=== PATIENT | female | born 1945 | race Two or more races ===

== ENCOUNTER → 2017-06-24 | Outpatient (CLI) | payer MEDICARE ==
--- NOTE | 2017-06-24 10:42 | RADIOLOGY REPORT (SQ) ---
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 TECHNIQUE: CT scan of the chest performed using helical scanning technique with dynamic intravenous contrast injection. Images reviewed with lung, soft tissue and bone windows. Reconstructed coronal and sagittal MPR images reviewed. All images stored on PACS. All CT scanners at this facility use dose modulation, iterative reconstruction, and/or weight based d osing when appropriate to reduce radiation dose to as low as reasonably achievable (ALARA). [facility]: Dose Right [facility]: CareDose [facility]: Dose Right [facility]: Teradose 4D [facility]: [employer] CONTRAST TYPE AND DOSE: 75 cc Isovue 370- low osmolar. RENAL FUNCTION: Creatinine 0.8 RADIATION DOSE: . LIMITATIONS: None. FINDINGS: LUNGS AND PLEURA: No opacities, nodules, masses. No pneumothorax. No effusions. HILAR AND MEDIASTINAL STRUCTURES: No identified masses or abnormal nodes. HEART AND VASCULAR STRUCTURES: No aneurysm or dissection. No central pulmonary emboli. No pericardi al effusion. HARDWARE: None in the chest. UPPER ABDOMEN: See separate report of the CT of the abdomen. THYROID AND OTHER SOFT TISSUES: No masses. No adenopathy. BONES: No significant finding. OTHER: No other significant finding. IMPRESSION: NORMAL CT OF THE CHEST WITH IV CONTRAST. TECHNICAL DOCUMENTATION: JOB ID: [id number] Quality ID # [id number]: Final reports with documentation of one or more dose reduction techniques (e.g., Au tomated exposure control, adjustment of the mA and/or kV according to patient size, use of iterative reconstruction technique) 2010 [employer]- All Rights Reserved
--- NOTE | 2017-06-24 10:59 | RADIOLOGY REPORT (SQ) ---
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 TECHNIQUE: CT scan of the abdomen and pelvis performed using helical scanning technique with dynamic intravenous contrast injection. Oral contrast. Images reviewed with lung, soft tissue, and bone win dows. Reconstructed coronal and sagittal MPR images reviewed. Delayed images for evaluation of the ur inary system also acquired. All images stored on PACS. All CT scanners at this facility use dose modulation, iterative reconstruction, and/or weight based d osing when appropriate to reduce radiation dose to as low as reasonably achievable (ALARA). [facility]: Dose Right [facility]: CareDose [facility]: Dose Right [facility]: Teradose 4D [facility]: [employer] CONTRAST TYPE AND DOSE: contrast/concentration: Isovue 370.00 mg/ml; Total Contrast Delivered: 75.0 ml; Total Saline Delivered: 67.0 ml RENAL FUNCTION: Creatinine 0.8 RADIATION DOSE: CT Rad equipment meets quality standard of care and radiation dose reduction techniq ues were employed. CTDIvol: 4.9 - 6.2 mGy. DLP: 887 mGy-cm.. LIMITATIONS: None. FINDINGS: LOWER CHEST: See separate report of the CT of the chest. LIVER: Normal size. No masses. No dilated ducts. SPLEEN: Splenomegaly. No masses. PANCREAS: No masses. No significant calcifications. No adjacent inflammation or peripancreatic fluid collections. Pancreatic duct not dilated. GALLBLADDER: No identified stones by CT criteria. No inflammatory changes to suggest cholecystitis. ADRENAL GLANDS: No significant masses or asymmetry. RIGHT KIDNEY AND URETER: Rotated. No solid masses. No significant calcifications. No hydronephro sis or hydroureter. LEFT KIDNEY AND URETER: No solid masses. No significant calcifications. No hydronephrosis or hydr oureter. AORTA AND VESSELS: No aneurysm. No dissection. Renal arteries, SMA, celiac without stenosis. RETROPERITONEUM: No retroperitoneal adenopathy, hemorrhage or masses. BOWEL AND PERITONEAL CAVITY: A colostomy is present the left lower quadrant. No bowel masses. No me senteric masses. There is a 2nd ostomy on the right that may be closed. There are fluid collections in the right side of the pelvis that may represent non-opacified small bowel. These appear to be co nfluent. APPENDIX: Not identified. PELVIS: Fluid collections on the right as described above. ABDOMINAL WALL: Ostomies as described. BONES: 3 long cannulated screws are present in the right femoral neck. There appears to be some shor tening of the femoral neck. OTHER: No other significant finding. IMPRESSION: 1. There are fluid collections in the right side of the pelvis that appear to be conflu ent. These may represent un opacified loops of small bowel. If the patient had cystic ovarian neopl asm, these could represent localized recurrence/metastases. 2. Changes in right femoral neck as described. TECHNICAL DOCUMENTATION: JOB ID: [id number] Quality ID # [id number]: Final reports with documentation of one or more dose reduction techniques (e.g., Au tomated exposure control, adjustment of the mA and/or kV according to patient size, use of iterative reconstruction technique) 2010 [employer]- All Rights Reserved
== END ==
LOC: RAD 08:12
PROVIDERS: ATTEND Internal Medicine
DX: C56.2 Malignant neoplasm of left ovary (principal)
CPT/HCPCS: 71260; 74177; 82565

== ENCOUNTER → 2017-07-07 | Outpatient (CLI) | payer MEDICARE ==
--- NOTE | 2017-07-09 11:23 | RADIOLOGY REPORT (SQ) ---
EXAM DESCRIPTION: PET CT SKULL/THIGH COMPLETED DATE/TIME: 07/07/2017 8:36 pm REASON FOR STUDY: OVARIAN CANCER C56.2 MALIGNANT NEOPLASM OF LEFT OVARY COMPARISON: CT chest abdomen pelvis dated 06/24/2017. RADIONUCLIDE AND DOSE: 10.0 mCi F18 FDG The route of agent administration: Intravenous FASTING BLOOD SUGAR: 183 mg/dl CONTRAST TYPE AND DOSE: No CT contrast given. TECHNIQUE: Blood glucose level was verified. Above dose of FDG was injected intravenously. 2-D seg mented attenuation correction images were obtained from the base of the skull to the midthighs. Nonc ontrast CT images were obtained for attenuation correction and fusion with emission images. CT image s were performed without oral or intravenous contrast and are not sensitive for parenchymal lesions. A series of overlapping emission PET images were obtained. Images reviewed and manipulated at [facility] work station by the radiologist. Images stored on PACS. LIMITATIONS: None. FINDINGS: HEAD AND NECK: No areas of abnormal metabolic activity in the soft tissues of the head and neck. CHEST: No areas of abnormal metabolic activity in the chest. ABDOMEN AND PELVIS: No areas of abnormal metabolic activity in the abdomen or pelvis. Extensive surg ical changes in the lower abdomen and pelvis. There has been previous pelvic exenteration. There is ureteral diversion with implantation in the distal ileal loop in the right lower pelvis extending to a right lower quadrant ostomy. There is a left lower quadrant colostomy. Expected physiologic acti vity is present in the genitourinary system and bowel. PROXIMAL LOWER EXTREMITIES: No areas of abnormal metabolic activity in the soft tissues of the lower extremities. BONES: No abnormal metabolic activity in the visualized skeleton. ADDITIONAL CT FINDINGS: Cortical cysts in the right kidney. Hardware in the right hip. No additiona l significant findings on the noncontrast CT images. OTHER: No other significant findings. IMPRESSION: UNREMARKABLE PET SCAN. THERE ARE NO AREAS OF ABNORMAL METABOLIC ACTIVITY. THERE ARE EX TENSIVE SURGICAL CHANGES RELATED TO PREVIOUS PELVIC EXENTERATION. THE IRREGULAR FLUID COLLECTIONS IN THE RIGHT PELVIS NOTED ON RECENT CT SCAN ARE ACTUALLY RELATED TO PREVIOUS SURGERY WITH URETERAL DIVE RSION INTO A DISTAL ILEAL LOOP EXTENDING TO A RIGHT LOWER QUADRANT OSTOMY. THERE IS A LEFT LOWER DIONICIO DRANT COLOSTOMY. NO OTHER SIGNIFICANT FINDINGS OTHER THAN INCIDENTAL CORTICAL CYSTS IN THE RIGHT KID TIMBO AND HARDWARE IN THE RIGHT HIP. TECHNICAL DOCUMENTATION: JOB ID: [id number] [employer]- All Rights Reserved
== END ==
LOC: RAD 17:37
PROVIDERS: ATTEND Internal Medicine
DX: C56.2 Malignant neoplasm of left ovary (principal)
CPT/HCPCS: 78815; A9552

== ENCOUNTER 2017-08-03 13:20 | Day surgery (SDC) | payer MEDICARE ==
[2017-08-03] MEDS ORDERED: ACETAMINOPHEN 325 MG TABLET ONE (13:41)
[2017-08-03] MEDS ORDERED: DIPHENHYDRAMINE HCL 25 MG CAPSULE ONE (13:42)
[2017-08-03] MEDS ORDERED: METHYLPREDNISOLONE INJ 40 MG/1 ML SDV IV PRN (13:48)
[2017-08-03 22:53] LABS: ABSOLUTE LYMPHOCYTES (AUTO) 1.3 10^3/uL (0.5-4.7); ABSOLUTE MONOCYTES (AUTO) 0.5 10^3/uL (0.1-1.4); ABSOLUTE NEUT (AUTO) 5.9 10^3/uL (1.7-8.2); BASOPHILS % (AUTO) 0.5 % (0-2); EOSINOPHILS % (AUTO) 0.1 % (0-6); HEMATOCRIT 25.6 % (36.0-47.0); HEMOGLOBIN 8.7 g/dL (12.0-15.5); MEAN CORPUSCULAR HEMOGLOBIN 32.4 pg (27.0-33.4); MEAN CORPUSCULAR HGB CONC 34.1 g/dL (32.0-36.0); MEAN CORPUSCULAR VOLUME 95 fl (80-97); MONOCYTES % (AUTO) 6.4 % (3-13); PLATELET COUNT 202 10^3/uL (150-450); RED CELL DISTRIBUTION WIDTH 16.6 % (11.5-14.0); TOTAL CELLS COUNTED % (AUTO) 100 %; WHITE BLOOD COUNT 7.7 10^3/uL (4.0-10.5)
[2017-08-03] MEDS ORDERED: HEPARIN SOD (PORCINE) 100 UNIT/ML 1 ML VIAL IV ONE (23:45)
[2017-08-04 01:02] VITALS: BP 117/59
== END 2017-08-04 01:10 | disposition home or self-care (01) ==
LOC: OROUT 13:20 → UNDODISIN 08-04 01:10 → EDSTATUS 08-05 08:29
PROVIDERS: ATTEND Internal Medicine
DX: D64.9 Anemia, unspecified (principal)
CPT/HCPCS: 36415; 85025; A9270 ×2

== ENCOUNTER → 2017-09-13 | Outpatient (CLI) | payer MEDICARE ==
--- NOTE | 2017-09-13 11:08 | RADIOLOGY REPORT (SQ) ---
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 Images reviewed with lung, soft tissue and bone windows. Reconstructed coronal and sagittal MPR images reviewed. All images stored on PACS. All CT scanners at this facility use dose modulation, iterative reconstruction, and/or weight based d osing when appropriate to reduce radiation dose to as low as reasonably achievable (ALARA). [facility]: Dose Right [facility]: CareDose [facility]: Dose Right [facility]: Teradose 4D [facility]: [employer] CONTRAST TYPE AND DOSE: 75 cc Isovue 370- low osmolar. RENAL FUNCTION: Creatinine 0.9 RADIATION DOSE: Total exam DLP: 1062 mGy cm LIMITATIONS: None. FINDINGS: LUNGS AND PLEURA: No opacities, nodules, masses. No pneumothorax. No effusions. HILAR AND MEDIASTINAL STRUCTURES: No identified masses or abnormal nodes. HEART AND VASCULAR STRUCTURES: No aneurysm or dissection. No central pulmonary emboli. No pericardi al effusion. HARDWARE: None in the chest. UPPER ABDOMEN: See separate report of the CT of the abdomen. THYROID AND OTHER SOFT TISSUES: No masses. No adenopathy. BONES: No significant abnormality. OTHER: No other significant finding. IMPRESSION: NORMAL CT OF THE CHEST WITH IV CONTRAST. TECHNICAL DOCUMENTATION: JOB ID: [id number] Quality ID # 436: Final reports with documentation of one or more dose reduction techniques (e.g., Au tomated exposure control, adjustment of the mA and/or kV according to patient size, use of iterative reconstruction technique) 2010 [employer]- All Rights Reserved Reading location - IP/workstation name: [email or web address]
--- NOTE | 2017-09-13 11:26 | RADIOLOGY REPORT (SQ) ---
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 No oral contrast. Images reviewed with lung, soft tissue, and bone windows. Reconstructed coronal and sagittal MPR images reviewed. Delayed images for evaluation of the urinary system also acquired. All images stored on PACS. All CT scanners at this facility use dose modulation, iterative reconstruction, and/or weight based d osing when appropriate to reduce radiation dose to as low as reasonably achievable (ALARA). [facility]: Dose Right [facility]: CareDose [facility]: Dose Right [facility]: Teradose 4D [facility]: [email or web address] CONTRAST TYPE AND DOSE: contrast/concentration: Isovue 370.00 mg/ml; Total Contrast Delivered: 75.0 ml; Total Saline Delivered: 57.4 ml RENAL FUNCTION: Creatinine 0.9 RADIATION DOSE: CT Rad equipment meets quality standard of care and radiation dose reduction techniq ues were employed. CTDIvol: 6.7 - 9.8 mGy. DLP: 1062 mGy-cm.. LIMITATIONS: None. FINDINGS: LOWER CHEST: See separate report of the CT of the chest. LIVER: Normal size. No masses. No dilated ducts. SPLEEN: Normal size. No focal lesions. PANCREAS: No masses. No significant calcifications. No adjacent inflammation or peripancreatic fluid collections. Pancreatic duct not dilated. GALLBLADDER: No identified stones by CT criteria. No inflammatory changes to suggest cholecystitis. ADRENAL GLANDS: No significant masses or asymmetry. RIGHT KIDNEY AND URETER: No solid masses. No significant calcifications. No hydronephrosis or hyd roureter. LEFT KIDNEY AND URETER: No solid masses. No significant calcifications. No hydronephrosis or hydr oureter. AORTA AND VESSELS: No aneurysm. No dissection. Renal arteries, SMA, celiac without stenosis. RETROPERITONEUM: No retroperitoneal adenopathy, hemorrhage or masses. BOWEL AND PERITONEAL CAVITY: There is a colostomy in the left lower quadrant. APPENDIX: Not identified. PELVIS: Uterus and urinary bladder are absent. No pelvic masses or fluid collections. ABDOMINAL WALL: Left-sided colostomy. There is also an ostomy on the right side likely representing an ileal conduit. BONES: 3 long cannulated screws are present extending through the right femoral neck. This is stable . No osseous metastases are suggested. OTHER: No other significant finding. IMPRESSION: Surgical changes with no evidence of metastatic disease in the abdomen or pelvis. TECHNICAL DOCUMENTATION: JOB ID: [id number] Quality ID # 436: Final reports with documentation of one or more dose reduction techniques (e.g., Au tomated exposure control, adjustment of the mA and/or kV according to patient size, use of iterative reconstruction technique) 2010 [employer]- All Rights Reserved Reading location - IP/workstation name: [email or web address]
== END ==
LOC: RAD 09:24
PROVIDERS: ATTEND Internal Medicine
DX: C56.2 Malignant neoplasm of left ovary (principal)
CPT/HCPCS: 71260; 74177; 82565

== ENCOUNTER 2017-10-07 17:31 | Emergency (ER) | payer MEDICARE ==
[2017-10-07] MEDS ORDERED: NORMAL SALINE 1000 ML 1,000 ML IV ONE (17:53)
--- NOTE | 2017-10-07 17:55 | ER Document Report ---
ED General - General Chief Complaint: High Blood Sugar Stated Complaint: DIZZY,NAUSEA,BLURRED VISION Time Seen by Provider: 10/07/17 17:52 TRAVEL OUTSIDE OF THE [place] IN LAST 30 DAYS: No - HPI Notes: Patient currently on prednisone due to underlying cancer diabetic with elevated blood sugars meter reading high. Blurred vision nausea vomiting - Related Data Allergies/Adverse Reactions: morphine Allergy (Verified 10/07/17 17:32) Past Medical History - Social History Smoking Status: Current Every Day Smoker Chew tobacco use (# tins/day): No Frequency of alcohol use: None Drug Abuse: None Family History: Reviewed & Not Pertinent Patient has suicidal ideation: No Patient has homicidal ideation: No Endocrine Medical History: Reports: Hx Diabetes Mellitus Type 2 Renal/ Medical History: Reports: Hx Kidney Stones. Denies: Hx Peritoneal Dialysis Past Surgical History: Reports: Hx Abdominal Surgery - urostomy and colostomy, Hx Gynecologic Surgery - ovarian, Hx Hysterectomy, Hx Kidney (Renal Surgery), Hx Orthopedic Surgery - right hip replacement, left shoulder Review of Systems - Review of Systems Gastrointestinal: Diarrhea, Nausea, Vomiting -: Yes All other systems reviewed and negative Physical Exam - Vital signs Vitals: Temp Pulse Resp BP Pulse Ox 97.7 F 86 17 114/46 L 95 10/07/17 17:38 10/07/17 17:38 10/07/17 17:38 10/07/17 17:38 10/07/17 17:38 Interpretation: Normal - Notes Notes: Lungs clear to auscultation heart rate regular rate and rhythm. - General General appearance: Appears well In distress: None - HEENT Head: Normocephalic, Atraumatic Eyes: Normal Pupils: PERRL - Cardiovascular Murmur: No - Extremities General upper extremity: Normal inspection, Nontender, Normal ROM General lower extremity: Normal inspection, Nontender, Normal ROM - Neurological Sensory: Normal Course - Vital Signs Vital signs: Temp Pulse Resp BP Pulse Ox 97.7 F 86 17 114/46 L 95 10/07/17 17:38 10/07/17 17:38 10/07/17 17:38 10/07/17 17:38 10/07/17 17:38
[2017-10-07 18:13] LABS: HEMATOCRIT 40.9 % (36.0-47.0); HEMOGLOBIN 13.7 g/dL (12.0-15.5); MEAN CORPUSCULAR HEMOGLOBIN 32.4 pg (27.0-33.4); MEAN CORPUSCULAR HGB CONC 33.5 g/dL (32.0-36.0); MEAN CORPUSCULAR VOLUME 97 fl (80-97); PLATELET COUNT 210 10^3/uL (150-450); RED BLOOD COUNT 4.22 10^6/uL (3.72-5.28); RED CELL DISTRIBUTION WIDTH 14.5 % (11.5-14.0); WHITE BLOOD COUNT 9.5 10^3/uL (4.0-10.5)
[2017-10-07 18:19] LABS: VENOUS BLOOD BASE EXCESS -5.3 mmol/L; VENOUS BLOOD HCO3 20.4 mmol/L (20-32); VENOUS BLOOD PCO2 40.5 mmHg (35-63); VENOUS BLOOD PH 7.32 (7.30-7.42)
[2017-10-07 18:32] LABS: ALANINE AMINOTRANSFERASE 29 U/L (9-52); ALKALINE PHOSPHATASE 68 U/L (38-126); ANION GAP 12 (5-19); ASPARTATE AMINO TRANSFERASE 28 U/L (14-36); BILIRUBIN,DIRECT 0.4 mg/dL (0.0-0.4); BILIRUBIN,TOTAL 0.4 mg/dL (0.2-1.3); BLOOD UREA NITROGEN 28 mg/dL (7-20); CALCIUM 10.1 mg/dL (8.4-10.2); CARBON DIOXIDE 18 mmol/L (22-30); CHLORIDE 97 mmol/L (98-107); LIPASE 116.1 U/L (23-300); SODIUM 127.1 mmol/L (137-145); TOTAL PROTEIN 6.9 g/dL (6.3-8.2)
[2017-10-07 18:33] LABS: ABSOLUTE LYMPHOCYTES# (MANUAL) 0.4 10^3/uL (0.5-4.7); ABSOLUTE MONOCYTES # (MANUAL) 0.4 10^3/uL (0.1-1.4); ABSOLUTE NEUTROPHILS# (MANUAL) 8.7 10^3/uL (1.7-8.2); BASOPHILS % (MANUAL) 0 % (0-2); EOSINOPHILS % (MANUAL) 0 % (0-6); LYMPHOCYTES % (MANUAL) 4 % (13-45); MONOCYTES % (MANUAL) 4 % (3-13); SEGMENTED NEUTROPHILS % (MAN) 92 % (42-78); TOTAL CELLS COUNTED 100
[2017-10-07 18:35] LABS: POTASSIUM 5.9 mmol/L (3.6-5.0)
[2017-10-07 18:37] LABS: ANISOCYTOSIS SLIGHT; PLATELET COMMENT ADEQUATE; TOXIC GRANULATION SLIGHT
[2017-10-07 18:40] LABS: APPEARANCE,URINE CLEAR; BILIRUBIN,URINE NEGATIVE (NEGATIVE); COLOR,URINE STRAW; GLUCOSE, URINE >=500 mg/dL (NEGATIVE); KETONES,URINE NEGATIVE (NEGATIVE); LEUKOCYTE ESTERASE,URINE NEGATIVE (NEGATIVE); NITRITE,URINE NEGATIVE (NEGATIVE); PROTEIN,URINE NEGATIVE (NEGATIVE); URINE SPECIFIC GRAVITY 1.013; UROBILINOGEN,URINE NEGATIVE mg/dL (<2.0)
[2017-10-07 18:42] LABS: GLUCOSE 737 mg/dL (75-110)
[2017-10-07] MEDS ORDERED: INSULIN REG, HUMAN 100 UNIT/ML 3 ML VIAL (PYX) IV ONE (19:03)
[2017-10-07] MEDS ORDERED: RINGERS SOLUTION,LACTATED 1,000 ML IV ONE (19:30)
--- NOTE | 2017-10-07 19:35 | ER Document Report ---
ED General - General Chief Complaint: High Blood Sugar Stated Complaint: DIZZY,NAUSEA,BLURRED VISION Time Seen by Provider: 10/07/17 17:52 Notes: Patient is a 71-year-old female with a past medical history of a hemolytic anemia, currently on prednisone 40 mg daily currently tapering down who presents from her primary care doctor's office with hyperglycemia, lightheadedness, and general fatigue. Patient reports that the symptoms have been ongoing for at least the past month. She was immediately referred to the emergency department by her primary care doctor. She had originally been referred to her primary care doctor by her senior ios developer due to concerns of hyperglycemia in the setting of prednisone. Patient states that normally her blood sugars are very well controlled when she is not on steroids she only requires metformin and dietary control to main blood sugars typically anywhere between 100-150. She has not had to be on insulin in many years. She denies any chest pain, shortness of breath, dysuria, abdominal pain, nausea or vomiting. No confusion. No focal weakness or numbness. She has not noted that anything seems to improve or worsen her symptoms. TRAVEL OUTSIDE OF THE [place] IN LAST 30 DAYS: No - Related Data Allergies/Adverse Reactions: morphine Allergy (Verified 10/07/17 17:32) Past Medical History - General Information source: Patient - Social History Smoking Status: Current Every Day Smoker Chew tobacco use (# tins/day): No Frequency of alcohol use: None Drug Abuse: None Lives with: Family Family History: Reviewed & Not Pertinent Patient has suicidal ideation: No Patient has homicidal ideation: No Endocrine Medical History: Reports: Hx Diabetes Mellitus Type 2 Renal/ Medical History: Reports: Hx Kidney Stones. Denies: Hx Peritoneal Dialysis Past Surgical History: Reports: Hx Abdominal Surgery - urostomy and colostomy, Hx Gynecologic Surgery - ovarian, Hx Hysterectomy, Hx Kidney (Renal Surgery), Hx Orthopedic Surgery - right hip replacement, left shoulder Review of Systems - Review of Systems Notes: Constitutional: Negative for fever. Positive for generalized fatigue HENT: Negative for sore throat. Eyes: Negative for visual changes. Cardiovascular: Negative for chest pain. Respiratory: Negative for shortness of breath. Gastrointestinal: Negative for abdominal pain, vomiting or diarrhea. Genitourinary: Positive for polyuria Musculoskeletal: Negative for back pain. Skin: Negative for rash. Neurological: Negative for headaches, weakness or numbness. 10 point ROS negative except as marked above and in HPI. Physical Exam - Vital signs Vitals: Temp Pulse Resp BP Pulse Ox 97.7 F 86 17 114/46 L 95 10/07/17 17:38 10/07/17 17:38 10/07/17 17:38 10/07/17 17:38 10/07/17 17:38 Interpretation: Normal Notes: PHYSICAL EXAMINATION: GENERAL: Well-appearing, well-nourished and in no acute distress. HEAD: Atraumatic, normocephalic. EYES: Pupils equal round and reactive to light, extraocular movements intact, sclera anicteric, conjunctiva are normal. ENT: nares patent, oropharynx clear without exudates. Dry mucous membranes. NECK: Normal range of motion, supple without lymphadenopathy LUNGS: Breath sounds clear to auscultation bilaterally and equal. No wheezes rales or rhonchi. HEART: Regular rate and rhythm without murmurs ABDOMEN: Soft, nontender, normoactive bowel sounds. No guarding, no rebound. No masses appreciated. EXTREMITIES: Normal range of motion, no pitting or edema. No cyanosis. NEUROLOGICAL: Face symmetric. Tongue protrudes midline. Extraocular motions intact. Pupils are 2 mm and equally reactive. Normal speech, normal gait. 5 out of 5 strength in both the distal and proximal upper and lower extremities bilaterally. Sensation is grossly intact throughout. Finger to nose testing normal. Pronator drift normal. PSYCH: Normal mood, normal affect. SKIN: Warm, Dry, normal turgor, no rashes or lesions noted. Course - Re-evaluation Re-evalutation: 10/07/17 19:32 Presentation of asymptomatic hyperglycemia. There is no evidence of HHS or diabetic ketoacidosis on laboratories or based on clinical history. Patient's vitals are within normal limits. They deny any acute focal complaints. Treatment with insulin and IV fluids given here in the emergency department with appropriate response of the blood sugar. Patient does have primary care follow-up. Patient was instructed to continue taking their metformin and advised they will likely need to increase dietary modification and may also need medication changes. The main concern is likely that the patient is having hypoglycemia in the setting of prednisone which is being tapered off secondary to hemolytic anemia. I have instructed the patient to follow-up with her senior ios developer as well as her primary care physician about the possibility of starting insulin until she comes off of this medication versus allowing the taper to continue naturally and allow for normal yazidi of her blood sugars. Indications to return to emergency department as well as the importance of close outpatient follow-up were discussed at length. Patient verbalized understanding of the need for close follow-up and indications to return to the ED. - Vital Signs Vital signs: Temp Pulse Resp BP Pulse Ox 97.7 F 86 12 109/47 L 93 10/07/17 17:38 10/07/17 17:38 10/07/17 19:01 10/07/17 19:00 10/07/17 19:01 - Laboratory Result Diagrams: 10/07/17 17:53 10/07/17 17:53 Laboratory results interpreted by me: 10/07/17 10/07/17 10/07/17 17:53 17:53 18:12 RDW 14.5 H Seg Neuts % (Manual) 92 H Lymphocytes % (Manual) 4 L Abs Neuts (Manual) 8.7 H Abs Lymphs (Manual) 0.4 L Sodium 127.1 L Potassium 5.9 H Chloride 97 L Carbon Dioxide 18 L BUN 28 H Glucose 737 H* Urine Glucose (UA) >=500 H Urine Blood SMALL H Discharge - Discharge Clinical Impression: Hyperglycemia, Steroid-induced hyperglycemia, Dehydration Condition: Good Disposition: HOME, SELF-CARE Additional Instructions: You need to followup urgently with your primary care doctor as your blood sugars were high today. You did not have any evidence of a dangerous condition associated with these blood sugars at this time. Your high blood sugars are likely due to taking prednisone and you need to discuss with your primary care doctor and senior ios developer about the plan for the next 3 weeks will you continue to be on this medication. They may elect to put you on insulin until your office medication or alternatively could allow your blood sugars naturally decrease as you come off the steroids. Please return to emergency department immediately if you develop weakness, persistent vomiting, confusion, or any other symptoms that are concerning to you.
[2017-10-07 20:47] VITALS: BP 120/54
== END 2017-10-07 20:54 | disposition home or self-care (01) ==
LOC: ER 17:31
DX: E11.65 Type 2 diabetes mellitus with hyperglycemia (principal); T38.0X5A Adverse effect of glucocorticoids and synthetic analogues, initial encounter; Z79.84 Long term (current) use of oral hypoglycemic drugs; D58.9 Hereditary hemolytic anemia, unspecified; E86.0 Dehydration; R35.8 Other polyuria; R42 Dizziness and giddiness; R53.83 Other fatigue; F17.200 Nicotine dependence, unspecified, uncomplicated; Z88.5 Allergy status to narcotic agent
CPT/HCPCS: 99283; 96360; 96361; 36415; 87086; 82962; 83690; 85025; 87088; 80053; 81001; 87186; 82803; A9270; J7030; J7120; J1815

== ENCOUNTER → 2017-12-20 | Outpatient (CLI) | payer MEDICARE ==
--- NOTE | 2017-12-20 11:31 | RADIOLOGY REPORT (SQ) ---
EXAM DESCRIPTION: CT ABD/PELVIS WITH IV ONLY; CT CHEST WITH COMPLETED DATE/TIME: 12/20/2017 10:07 am REASON FOR STUDY: MALIGNANT NEOPLASM OF LEFT OVARY C56.2 MALIGNANT NEOPLASM OF LEFT OVARY COMPARISON: PET-CT 07/07/2017 CT abdomen pelvis 06/24/2017 CT chest abdomen pelvis 09/13/2017 CONTRAST TYPE AND DOSE: contrast/concentration: Isovue 370.00 mg/ml; Total Contrast Delivered: 78.0 ml; Total Saline Delivered: 67.0 ml RENAL FUNCTION: Creatinine 0.7 TECHNIQUE: CT scan of the chest performed using helical scanning technique with dynamic intravenous contrast injection. Images reviewed with lung, soft tissue and bone windows. Reconstructed coronal a nd sagittal MPR images reviewed. All images stored on PACS. CT scan of the abdomen and pelvis performed with intravenous and without oral contrastusing helical s jenniffer technique with dynamic intravenous contrast injection. Images reviewed with lung, soft tissu e and bone windows. Reconstructed coronal and sagittal MPR images reviewed. Delayed images for eval uation of the urinary system also acquired and evaluated. All images stored on PACS. All CT scanners at this facility use dose modulation, iterative reconstruction, and/or weight based d osing when appropriate to reduce radiation dose to as low as reasonably achievable (ALARA). [facility]: Dose Right [facility]: CareDose [facility]: Dose Right [facility]: Teradose 4D [facility]: [employer] RADIATION DOSE: CT Rad equipment meets quality standard of care and radiation dose reduction techniq ues were employed. CTDIvol: 4.8 - 5.4 mGy. DLP: 792 mGy-cm. . LIMITATIONS: None. FINDINGS: CHEST: LUNGS AND PLEURA: No opacities, nodules, masses. No pneumothorax. No effusions. HILAR AND MEDIASTINAL STRUCTURES: No identified masses or abnormal nodes. HEART AND VASCULAR STRUCTURES: No aneurysm or dissection. No central pulmonary emboli. No pericardi al effusion. HARDWARE: Right-sided permanent central line tip superior vena cava THYROID AND OTHER SOFT TISSUES: No masses. No adenopathy. BONES: No significant finding. OTHER: No other significant finding. ABDOMEN AND PELVIS: LIVER: Normal size. No masses. No dilated ducts. SPLEEN: Normal size. No focal lesions. PANCREAS: No masses. No significant calcifications. No adjacent inflammation or peripancreatic fluid collections. Pancreatic duct not dilated. GALLBLADDER: No identified stones by CT criteria. No inflammatory changes to suggest cholecystitis. ADRENAL GLANDS: No significant masses or asymmetry. RIGHT KIDNEY AND URETER: Stable right upper pole cortical thinning, multiple stable right renal cysts . There is very mild prominence of the right renal pelvis and ureter, stable. No right-sided urinar y calculi LEFT KIDNEY AND URETER: Stable left upper pole cortical thinning. 1 cm left upper pole renal cortica l cyst. No stones. No hydronephrosis. AORTA AND VESSELS: No aneurysm. No dissection. Diffuse atherosclerotic aortoiliac calcification. RETROPERITONEUM: No retroperitoneal adenopathy, hemorrhage or masses. BOWEL AND PERITONEAL CAVITY: No oral contrast. No CT evidence of bowel obstruction. No free air or free fluid. APPENDIX: Not identified ABDOMINAL WALL: No masses. No hernias. Right lower quadrant urinary conduit. Left lower quadrant co lostomy PELVIS: Post cystectomy, hysterectomy and oophorectomy, and distal sigmoid colon/ rectum resection. No pelvic free fluid. No pelvic adenopathy. Surgical anastomotic yajaira along the right lower quad rant urinary conduit. BONES: Old healed subcapital right femoral neck fracture with lag screws OTHER: No other significant finding. IMPRESSION: No CT evidence of metastatic disease to the chest abdomen or pelvis given history of ova leroy cancer TECHNICAL DOCUMENTATION: JOB ID: [id number] Quality ID # [id number]: Final reports with documentation of one or more dose reduction techniques (e.g., Au tomated exposure control, adjustment of the mA and/or kV according to patient size, use of iterative reconstruction technique) 2010 [employer]- All Rights Reserved Reading location - IP/workstation name: [email or web address]
== END ==
LOC: RAD 09:22
PROVIDERS: ATTEND Physician Assistant Medical
DX: C56.2 Malignant neoplasm of left ovary (principal)
CPT/HCPCS: 71260; 74177

== ENCOUNTER 2018-01-21 18:34 | Inpatient (IN) | payer MEDICARE ==
[2018-01-21] MEDS ORDERED: ACETAMINOPHEN 325 MG TABLET PO ONE (19:02)
[2018-01-21] MEDS ORDERED: NORMAL SALINE 1000 ML 1,000 ML IV ONE (19:02)
--- NOTE | 2018-01-21 19:05 | ER Document Report ---
ED Medical Screen (RME) - General Chief Complaint: Fever Stated Complaint: FEVER, BACK PAIN, DIZZY Time Seen by Provider: 01/21/18 18:55 Notes: RAPID MEDICAL EVALUATION DISCLOSURE I have seen this patient as part of a Rapid Medical Evaluation and, if applicable, placed any initially appropriate orders. The patient will be seen and fully evaluated, including a full history and physical exam, by a provider ( in Main ED or Fast Track) when a room becomes available. 72-year-old female PMH multiple cancers status post urostomy colostomy here with complaints of fevers chills headaches body aches right-sided back pain nausea vomiting ongoing since earlier today. She has taken Tylenol for the symptoms. She does not know what could be causing the symptoms. She has a urostomy and colostomy due to a cancer resection performed in [place] that required removal of part of her colon and her entire bladder and "the top of the vagina". Patient states that the urine in the urostomy appears to be baseline color and clarity. EXAM Tachycardic Mild right CVA TTP Colostomy/urostomy in place TRAVEL OUTSIDE OF THE [place] IN LAST 30 DAYS: No - Related Data Allergies/Adverse Reactions: morphine Allergy (Verified 10/07/17 17:32) Past Medical History Endocrine Medical History: Reports: Hx Diabetes Mellitus Type 2 Renal/ Medical History: Reports: Hx Kidney Stones. Denies: Hx Peritoneal Dialysis Past Surgical History: Reports: Hx Abdominal Surgery - urostomy and colostomy, Hx Gynecologic Surgery - ovarian, Hx Hysterectomy, Hx Kidney (Renal Surgery), Hx Orthopedic Surgery - right hip replacement, left shoulder - Immunizations History of Influenza Vaccine for 04/2017 - 09/2017 Season: Yes Influenza Administration Date for 04/2017 - 09/2017 Season: 04/07/17 Physical Exam - Vital signs Vitals: Temp Pulse BP Pulse Ox 102.7 F H 117 H 167/58 H 95 01/21/18 18:41 01/21/18 18:41 01/21/18 18:41 01/21/18 18:41 Course - Vital Signs Vital signs: Temp Pulse Resp BP Pulse Ox 102.7 F H 117 H 167/58 H 95 01/21/18 18:41 01/21/18 18:41 01/21/18 18:41 01/21/18 18:41 Doctor's Discharge - Discharge Referrals: CLYDE HOLLEY PA-C [Primary Care Provider] - Follow up as needed
[2018-01-21 19:53] LABS: HEMATOCRIT 36.9 % (36.0-47.0); HEMOGLOBIN 12.4 g/dL (12.0-15.5); MEAN CORPUSCULAR HEMOGLOBIN 27.9 pg (27.0-33.4); MEAN CORPUSCULAR HGB CONC 33.7 g/dL (32.0-36.0); MEAN CORPUSCULAR VOLUME 83 fl (80-97); PLATELET COUNT 201 10^3/uL (150-450); RED BLOOD COUNT 4.45 10^6/uL (3.72-5.28); RED CELL DISTRIBUTION WIDTH 15.7 % (11.5-14.0); WHITE BLOOD COUNT 13.3 10^3/uL (4.0-10.5)
[2018-01-21 20:07] LABS: ALANINE AMINOTRANSFERASE 48 U/L (9-52); ALBUMIN 4.3 g/dL (3.5-5.0); ALKALINE PHOSPHATASE 49 U/L (38-126); ANION GAP 16 (5-19); ASPARTATE AMINO TRANSFERASE 49 U/L (14-36); BILIRUBIN,DIRECT 0.5 mg/dL (0.0-0.4); BILIRUBIN,TOTAL 0.8 mg/dL (0.2-1.3); BLOOD UREA NITROGEN 16 mg/dL (7-20); CALCIUM 10.2 mg/dL (8.4-10.2); CARBON DIOXIDE 20 mmol/L (22-30); CHLORIDE 103 mmol/L (98-107); GLUCOSE 111 mg/dL (75-110); LIPASE 83.4 U/L (23-300); POTASSIUM 4.5 mmol/L (3.6-5.0); SODIUM 138.6 mmol/L (137-145); TOTAL PROTEIN 7.7 g/dL (6.3-8.2)
[2018-01-21 20:12] LABS: ABSOLUTE LYMPHOCYTES# (MANUAL) 0.3 10^3/uL (0.5-4.7); ABSOLUTE MONOCYTES # (MANUAL) 0.5 10^3/uL (0.1-1.4); ABSOLUTE NEUTROPHILS# (MANUAL) 12.4 10^3/uL (1.7-8.2); ANISOCYTOSIS SLIGHT; BAND NEUTROPHILS % (MANUAL) 2 % (3-5); BASOPHILS % (MANUAL) 0 % (0-2); EOSINOPHILS % (MANUAL) 1 % (0-6); LYMPHOCYTES % (MANUAL) 2 % (13-45); MONOCYTES % (MANUAL) 4 % (3-13); PLATELET COMMENT ADEQUATE; SEGMENTED NEUTROPHILS % (MAN) 91 % (42-78); TOTAL CELLS COUNTED 100
[2018-01-21 20:13] LABS: OVALOCYTES SLIGHT; POIKILOCYTOSIS SLIGHT; POLYCHROMASIA SLIGHT
[2018-01-21] MEDS ORDERED: CEFTRIAXONE INJ 1000 MG VIAL IV ONE (21:57)
--- NOTE | 2018-01-21 22:01 | ER Document Report ---
ED Fever - General Chief Complaint: Fever Stated Complaint: FEVER, BACK PAIN, DIZZY Time Seen by Provider: 01/21/18 18:55 Notes: Patient is a 72-year-old female who comes emergency department for chief complaint of shaking chills, fever, weakness, generalized body aches, and pain in her back mainly in the mid right. She also states she vomited earlier. She reports a little bit of a cough as well. She denies any abdominal pain. Past medical history includes cancer resulting in bladder removal and partial colectomy, she has a colostomy bag and a urostomy bag after her bladder was removed. She is on oral chemotherapy for the rest of her life. Follows with Dr. Da Silva. TRAVEL OUTSIDE OF THE [place] IN LAST 30 DAYS: No - Related Data Allergies/Adverse Reactions: morphine Allergy (Verified 10/07/17 17:32) Past Medical History - General Information source: Patient - Social History Smoking Status: Never Smoker Frequency of alcohol use: None Drug Abuse: None Lives with: Family Family History: Reviewed & Not Pertinent Patient has suicidal ideation: No Patient has homicidal ideation: No Endocrine Medical History: Reports: Hx Diabetes Mellitus Type 2 Renal/ Medical History: Reports: Hx Kidney Stones. Denies: Hx Peritoneal Dialysis Past Surgical History: Reports: Hx Abdominal Surgery - urostomy and colostomy, Hx Gynecologic Surgery - ovarian, Hx Hysterectomy, Hx Kidney (Renal Surgery), Hx Orthopedic Surgery - right hip replacement, left shoulder - Immunizations Immunizations up to date: Yes Hx Diphtheria, Pertussis, Tetanus Vaccination: Yes Review of Systems - Review of Systems Constitutional: See HPI EENT: No symptoms reported Cardiovascular: No symptoms reported Respiratory: See HPI Gastrointestinal: See HPI Genitourinary: See HPI Female Genitourinary: No symptoms reported Musculoskeletal: No symptoms reported Skin: No symptoms reported Hematologic/Lymphatic: No symptoms reported Neurological/Psychological: No symptoms reported Physical Exam - Vital signs Vitals: Temp Pulse BP Pulse Ox 102.7 F H 117 H 167/58 H 95 01/21/18 18:41 01/21/18 18:41 01/21/18 18:41 01/21/18 18:41 - Notes Notes: GENERAL: Alert, interacts well. No acute distress. HEAD: Normocephalic, atraumatic. EYES: Pupils equal, round, and reactive to light. Extraocular movements intact. ENT: Oral mucosa moist, tongue midline. NECK: Full range of motion. Supple. Trachea midline. LUNGS: Clear to auscultation bilaterally, no wheezes, rales, or rhonchi. No respiratory distress. HEART: Regular rate and rhythm. No murmur ABDOMEN: Soft, non-tender. Non-distended. Urostomy and colostomy bags noted over the lower abdomen. Unremarkable appearing stool and urine. EXTREMITIES: Moves all 4 extremities spontaneously. No edema, normal radial and dorsalis pedis pulses bilaterally. No cyanosis. BACK: Right-sided CVA tenderness, left unremarkable, back examination otherwise unremarkable. NEUROLOGICAL: Alert and oriented x3. Normal speech. [cranial nerves II through XII grossly intact]. SKIN: Warm, dry, normal turgor. No rashes or lesions noted. Course - Re-evaluation Re-evalutation: Patient had bladder removed, had makeshift bladder created out of intestine, has urostomy bag, will be contaminated. Ordering chest x-ray as well. Patient has been here for 3 hours, has right CVA tenderness, fever, vomiting, history of kidney stones. Performing CAT scan to rule out infected ureterolithiasis but also starting Rocephin prophylaxis. To obtain a urinalysis we removed the bag and placed a new one, then obtained sample. Culture placed. CBC shows leukocytosis with a couple of bands, elevation of neutrophils. Lactic acid is not elevated. Chemistry generally unremarkable. Urinalysis consistent with infection. Chest x-ray unremarkable. CAT scan of the abdomen and pelvis shows nephrolithiasis, no ureterolithiasis or acute findings. Discussed with patient and family. Concern because of her initial tachycardia, fever, leukocytosis, chemotherapy use, and CVA tenderness suggesting pyelonephritis with possible sepsis. No evidence of septic shock. Will discuss with hospitalist for admission. 01/22/18 00:26 Discussed with hospitalist, patient will be admitted. - Vital Signs Vital signs: Temp Pulse Resp BP Pulse Ox 102.7 F H 117 H 27 H 110/42 L 98 01/21/18 18:41 01/21/18 18:41 01/22/18 02:00 01/21/18 22:01 01/22/18 02:00 - Laboratory Result Diagrams: 01/21/18 19:20 01/21/18 19:20 Laboratory results interpreted by me: 01/21/18 01/21/18 01/21/18 19:20 19:20 23:15 WBC 13.3 H RDW 15.7 H Seg Neuts % (Manual) 91 H Band Neutrophils % 2 L Lymphocytes % (Manual) 2 L Abs Neuts (Manual) 12.4 H Abs Lymphs (Manual) 0.3 L Carbon Dioxide 20 L Est GFR (Non-Af Amer) 53 L Glucose 111 H Direct Bilirubin 0.5 H AST 49 H Urine Protein 100 H Urine Blood SMALL H Ur Leukocyte Esterase MODERATE H Discharge - Discharge Clinical Impression: Tachycardia, Flank pain Vomiting Qualifiers: Vomiting type: unspecified Vomiting Intractability: non-intractable Nausea presence: with nausea Qualified Code(s): R11.2 - Nausea with vomiting, unspecified Urinary tract infection Qualifiers: Urinary tract infection type: site unspecified Hematuria presence: without hematuria Qualified Code(s): N39.0 - Urinary tract infection, site not specified Fever Qualifiers: Fever type: unspecified Qualified Code(s): R50.9 - Fever, unspecified Condition: Stable Disposition: ADMITTED INPATIENT Admitting Provider: Hospitalist Unit Admitted: Telemetry
--- NOTE | 2018-01-21 22:39 | RADIOLOGY REPORT (SQ) ---
EXAM DESCRIPTION: CHEST SINGLE VIEW COMPLETED DATE/TIME: 01/21/2018 10:25 pm REASON FOR STUDY: fever, tachycardia COMPARISON: CT from December. NUMBER OF VIEWS: One view. TECHNIQUE: Single frontal radiographic view of the chest acquired. LIMITATIONS: None. FINDINGS: LUNGS AND PLEURA: Slightly hyperinflated but generally clear without suspicious opacity or acute infiltrate. MEDIASTINUM AND HILAR STRUCTURES: No masses. Contour normal. HEART AND VASCULAR STRUCTURES: Heart normal in size. Normal vasculature. BONES: No acute findings. HARDWARE: Right port with tip to the superior vena cava. OTHER: No other significant finding. IMPRESSION: NO SIGNIFICANT RADIOGRAPHIC FINDING IN THE CHEST. TECHNICAL DOCUMENTATION: JOB ID: [id number] [employer] [facility]- All Rights Reserved Reading location - IP/workstation name: [email or web address]
[2018-01-21 23:43] LABS: APPEARANCE,URINE CLOUDY; BILIRUBIN,URINE NEGATIVE (NEGATIVE); COLOR,URINE YELLOW; GLUCOSE, URINE NEGATIVE (NEGATIVE); KETONES,URINE NEGATIVE (NEGATIVE); LEUKOCYTE ESTERASE,URINE MODERATE (NEGATIVE); NITRITE,URINE NEGATIVE (NEGATIVE); PROTEIN,URINE 100 mg/dL (NEGATIVE); URINE SPECIFIC GRAVITY 1.011; UROBILINOGEN,URINE NEGATIVE mg/dL (<2.0)
--- NOTE | 2018-01-21 23:50 | RADIOLOGY REPORT (SQ) ---
CT abdomen and pelvis without contrast on 01/21/2018 at 11:00 PM CLINICAL INDICATION: Right-sided back pain, fever, history of kidney stones TECHNIQUE: Multiple axial images are obtained throughout the abdomen and pelvis without the administration of contrast. This exam was performed according to our departmental dose-optimization program, which includes automated exposure control, adjustment of the mA and/or kV according to patient size and/or use of iterative reconstruction technique. Total DLP is 321.78 mGy*cm. COMPARISON: 12/20/2017 FINDINGS: Abdomen: There is minimal basilar atelectasis and/or scarring. Vascular calcifications are noted. There is a small nonobstructing stone in the lower pole of the left kidney. There are no ureteral stones or hydronephrosis. The unenhanced solid abdominal organs are otherwise unremarkable. There is no abdominal adenopathy. The patient is status post cystectomy with a right lower quadrant ileal conduit. The patient is status post a rectosigmoid colon resection with a left lower quadrant descending colostomy. There is a small parastomal hernia containing a small portion of colon adjacent to this. The abdominal portion of the GI tract is otherwise unremarkable. There are some adherent loops of bowel along the anterior abdominal wall without evidence of obstruction. Pelvis: The patient is status post hysterectomy. There is no free fluid in the pelvis. There is no pelvic adenopathy. The pelvic portion of the GI tract is unremarkable. Three pins are noted in the right hip. No acute bony abnormality is noted. IMPRESSION: 1. Small nonobstructing left renal stone. 2. Extensive postsurgical changes in the abdomen and pelvis as above with otherwise no acute abnormality.
[2018-01-22] MEDS ORDERED: METOCLOPRAMIDE HCL INJ/PF 10 MG/2 ML SDV ONE (03:26)
[2018-01-22] MEDS ORDERED: METOCLOPRAMIDE HCL INJ/PF 10 MG/2 ML SDV IV ONE (03:27)
[2018-01-22] MEDS ORDERED: GLUCAGON,HUMAN RECOMB 1 MG INJ IM PRN (04:14)
[2018-01-22] MEDS ORDERED: DEXTROSE 50%-WATER 25 GM/50 ML DISP.SYRIN IV PRN ×2 (04:14)
[2018-01-22] MEDS ORDERED: DEXTROSE 40% GEL 15 GM TUBE PO PRN ×2 (04:14)
--- NOTE | 2018-01-22 04:40 | PDOC H&P ---
History of Present Illness Admission Date/PCP: 01/22/18 00:50 REYNALDO GATES PA-C Patient complains of: Fever History of Present Illness: SHELLIE HORTON is a 72 year old female who comes to the emergency department complaining of fever. States has been sick for the last 2 days with generalized weakness, lately as associated with shaking chills and fever up to 104.3 at home, generalized body achiness. Right flank pain that radiated to her right lower abdomen. Persistent nausea and nonbloody vomiting. She describes the flank pain up to 8/10 in intensity. Associated symptoms lightheadedness, cough, yellowish sputum. Denies chest pain. The patient has a urostomy and colostomy in place Denies frequent urinary tract infections In the emergency department T102.7 feet 117 BP 167/58. White blood cells 13.3 with left shift and bands. In the emergency department sick looking with persistent nausea and vomiting. She has a positive urinalysis for infection, in the ED her first urine was discarded and sent her urine from a clear urostomy bag. Chest x-ray unremarkable. CT scan of the abdomen and pelvis shows nephrolithiasis, no ureterolithiasis or acute findings. Patient meets criteria for sepsis. 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 Also has a colostomy with colon resection. Chemotherapy in the past Hematology: Reports: Anemia Past Surgical History Past Surgical History: Reports: Colostomy, Hysterectomy, Orthopedic Surgery - right hip replacement, left shoulder, Other - Bladder removal with urostomy Social History Lives with: Family Smoking Status: Current Every Day Smoker - Smoke 1 pack per day. No alcohol or illicit drugs Frequency of Alcohol Use: None Hx Recreational Drug Use: No Family History Family History: Reviewed & Not Pertinent Family History: Unable to obtain at this time as per her persistent nausea and vomiting, no family member at the bedside. Parental Family History Reviewed: No Children Family History Reviewed: NA Sibling(s) Family History Reviewed.: NA Medication/Allergy Allergies/Adverse Reactions: morphine Allergy (Verified 10/07/17 17:32) Review of Systems Review of Systems: As outlined in the HPI, others negative Physical Exam Vital Signs: Temp Pulse Resp BP Pulse Ox 99.6 F 117 H 23 H 110/42 L 99 01/22/18 02:45 01/21/18 18:41 01/22/18 03:00 01/21/18 22:01 01/22/18 03:00 Additional comments: General appearance: Very ill looking, and appears to be in acute distress secondary to her shaking chills and persistent nausea and vomiting Head: Normocephalic Eyes: PEERL, EOMI, vision is grossly intact. Ears: External auditory canal and tympanic membranes clear, hearing grossly intact. Nose: No nasal discharge. Throat: Oral cavity and pharynx normal. No inflammation, swelling, exudate or lesions. Very dry oral mucosa Neck: Neck supple, nontender without lymphadenopathy, masses or thyromegaly. Cardiac: Normal S1 and S2. No S3, S4 or murmurs. Rhythm is regular and tachycardic. There is no peripheral edema, looks pale. Extremities are warm and well perfused. Capillary refill is less than 2 seconds. No carotid bruits. Lungs: Clear to auscultation and percussion without rales, rhonchi, wheezing or diminished breath sounds. Not using accessory muscles. Abdomen: Positive bowel sounds. Soft. Nondistended. Tenderness to palpation in the right abdomen. No guarding or rebound. No masses. No hepatosplenomegaly. Has a urostomy with clear urine and colostomy with nonbloody liquid stools. Extremities: No significant deformity or joint abnormality. No edema. Peripheral pulses intact. No varicosities. Neurological: Cranial nerves II through XII grossly intact. Strength and sensation symmetric and intact throughout. Reflexes 2+ throughout. Skin: Skin pale, normal texture and turgor with no lesions or eruptions, warm and dry. Psychiatric: The mental examination revealed the patient was oriented to person , place, and time. The patient was able to demonstrate good judgment on recent , without hallucinations, abnormal affect or abnormal behaviors. Results Laboratory Results: 01/21/18 01/21/18 01/21/18 19:20 19:20 23:15 WBC 13.3 H Hgb 12.4 Hct 36.9 RDW 15.7 H Plt Count 201 Seg Neuts % (Manual) 91 H Band Neutrophils % 2 L Lymphocytes % (Manual) 2 L Abs Neuts (Manual) 12.4 H Abs Lymphs (Manual) 0.3 L Platelet Comment ADEQUATE Polychromasia SLIGHT Poikilocytosis SLIGHT Anisocytosis SLIGHT Ovalocytes SLIGHT Sodium 138.6 Potassium 4.5 Chloride 103 Carbon Dioxide 20 L Anion Gap 16 Creatinine 1.03 Est GFR (Non-Af Amer) 53 L Glucose 111 H Total Bilirubin 0.8 Direct Bilirubin 0.5 H AST 49 H ALT 48 Alkaline Phosphatase 49 Total Protein 7.7 Albumin 4.3 Lipase 83.4 Urine Color YELLOW Urine Appearance CLOUDY Urine pH 6.0 Ur Specific [place] 1.011 Urine Protein 100 H Urine Ketones NEGATIVE Urine Blood SMALL H Urine Nitrite NEGATIVE Urine Bilirubin NEGATIVE Urine Urobilinogen NEGATIVE Ur Leukocyte Esterase MODERATE H Urine WBC (Auto) 78 Urine RBC (Auto) 4 Urine Bacteria (Auto) 2+ Urine WBC Clumps FEW Squamous Epi Cells Auto 1 U Non-Squamous Epis Auto 2 Urine Mucus (Auto) FEW Urine Ascorbic Acid NEGATIVE Impressions: Chest X-Ray 01/21/18 21:48 IMPRESSION: NO SIGNIFICANT RADIOGRAPHIC FINDING IN THE CHEST. Limited or Localized CT 01/21/18 21:57 IMPRESSION: 1. Small nonobstructing left renal stone. 2. Extensive postsurgical changes in the abdomen and pelvis as above with otherwise no acute abnormality. Assessment & Plan - Diagnosis (1) Sepsis Is this a current diagnosis for this admission?: Yes Plan: Patient is a criteria with fever, leukocytosis, tachycardia, a focus of infection. Core measures placed. (2) Urinary tract infection Qualifiers: Urinary tract infection type: site unspecified Hematuria presence: without hematuria Qualified Code(s): N39.0 - Urinary tract infection, site not specified Is this a current diagnosis for this admission?: Yes Plan: Diagnosis is most towards pyelonephritis as per her right flank pain radiated to the right lower abdomen, positive urinalysis, sepsis. In the ED given IV Rocephin and I will continue with this medication. Please follow blood cultures and urine cultures. She does not want any opiates for pain. IV fluids. We will repeat laboratories in the morning. CT abdomen and pelvis negative for acute (3) Diabetes mellitus type 2 in nonobese Is this a current diagnosis for this admission?: Yes Plan: Accu-Cheks every 6 hours. Insulin lispro sliding scale and hypoglycemia protocol. Metformin on hold. (4) Hypertension Is this a current diagnosis for this admission?: Yes Plan: Blood pressure has been slightly elevated in the emergency department, we will closely monitor with telemetry, will resume her antihypertensive medications if her blood pressure keeps is stable, high risk for hypotension. - Inpatient Certification Based on my medical assessment, after consideration of the patient's comorbidities, presenting symptoms, or acuity I expect that the services needed warrant INPATIENT care.: Yes I certify that my determination is in accordance with my understanding of Medicare's requirements for reasonable and necessary INPATIENT services [42 CFR 412.3e].: Yes Medical Necessity: Significant Comorbidiites Make Outpatient Treatment Too Risky , Need For Continuous Telemetry Monitoring, Need for IV Antibiotics, Risk of Complication if Not Cared For in Hospital, Risk of Diagnosis Which Will Require Inpatient Eval/Care/Monitoring
[2018-01-22 04:53] LABS: HEMATOCRIT 36.5 % (36.0-47.0); HEMOGLOBIN 12.4 g/dL (12.0-15.5); MEAN CORPUSCULAR HEMOGLOBIN 28.4 pg (27.0-33.4); MEAN CORPUSCULAR HGB CONC 34.1 g/dL (32.0-36.0); MEAN CORPUSCULAR VOLUME 83 fl (80-97); PLATELET COUNT 164 10^3/uL (150-450); RED BLOOD COUNT 4.38 10^6/uL (3.72-5.28); RED CELL DISTRIBUTION WIDTH 15.9 % (11.5-14.0); WHITE BLOOD COUNT 10.4 10^3/uL (4.0-10.5)
[2018-01-22] MEDS ORDERED: ACETAMINOPHEN 325 MG TABLET ONE (04:59)
[2018-01-22] MEDS ORDERED: ONDANSETRON HCL INJ/PF 4 MG/2 ML SDV IV PRN (05:00)
[2018-01-22 05:16] LABS: ALANINE AMINOTRANSFERASE 38 U/L (9-52); ALBUMIN 3.9 g/dL (3.5-5.0); ALKALINE PHOSPHATASE 63 U/L (38-126); ANION GAP 19 (5-19); ASPARTATE AMINO TRANSFERASE 37 U/L (14-36); BILIRUBIN,DIRECT 0.7 mg/dL (0.0-0.4); BILIRUBIN,TOTAL 0.9 mg/dL (0.2-1.3); BLOOD UREA NITROGEN 17 mg/dL (7-20); CALCIUM 9.8 mg/dL (8.4-10.2); CARBON DIOXIDE 16 mmol/L (22-30); CHLORIDE 106 mmol/L (98-107); GLUCOSE 119 mg/dL (75-110); POTASSIUM 4.1 mmol/L (3.6-5.0); SODIUM 140.8 mmol/L (137-145)
[2018-01-22 05:19] LABS: ABSOLUTE LYMPHOCYTES# (MANUAL) 0.6 10^3/uL (0.5-4.7); ABSOLUTE MONOCYTES # (MANUAL) 0.6 10^3/uL (0.1-1.4); BAND NEUTROPHILS % (MANUAL) 4 % (3-5); BASOPHILS % (MANUAL) 0 % (0-2); EOSINOPHILS % (MANUAL) 1 % (0-6); LYMPHOCYTES % (MANUAL) 6 % (13-45); MONOCYTES % (MANUAL) 6 % (3-13); SEGMENTED NEUTROPHILS % (MAN) 83 % (42-78); TOTAL CELLS COUNTED 100
[2018-01-22 05:21] LABS: ANISOCYTOSIS SLIGHT; PLATELET COMMENT ADEQUATE; POIKILOCYTOSIS SLIGHT; SCHISTOCYTES SLIGHT
[2018-01-22] MEDS ORDERED: (PENDING PHARMACY ID) (Levothyroxine Sodium [Synthroid] 175 MCG) PO SCH (11:00)
[2018-01-22] MEDS: LISINOPRIL 10 MG TABLET PO SCH (13:15)
[2018-01-22] MEDS: ANASTROZOLE 1 MG TABLET PO SCH (13:16)
[2018-01-22] MEDS: INSULIN REG, HUMAN 100 UNIT/ML 3 ML VIAL (PYX) SUBCUT PRN (14:22)
[2018-01-22] MEDS: PIPERACILLIN SODIUM/TAZOBACTAM 3.375 GM in NORMAL SALINE 100 ML IV SCH ×2 (14:22→21:21)
[2018-01-22] MEDS: ACETAMINOPHEN 325 MG TABLET PO PRN ×2 (14:23→21:20)
--- NOTE | 2018-01-22 15:24 | Progress Note ---
Provider Note Provider Note: This patient was admitted by my colleague, Dr. Caruso earlier today. I have reviewed the patient's History and Physical, laboratory results, and vitals. I have examined the patient. She states that she feels better. She has had no further fevers. She advises me that the has a history of autoimmune hemolytic anemia for which she is followed by Dr. Da Silva. I will consult him. The patient has had 1/2 blood cultures come back positive for gram negative rods. I have changed her antibiotic to zosyn for better coverage. I await speciation and sensitivities. The patient appears comfortable and her physical exam was unremarkable.
[2018-01-22] MEDS: NORMAL SALINE 1000 ML 1,000 ML IV PRN (16:42)
[2018-01-22] MEDS ORDERED: LOPERAMIDE HCL 2 MG CAPSULE PO PRN ×2 (17:25→17:53)
[2018-01-22] MEDS ORDERED: LOPERAMIDE HCL 2 MG CAPSULE PO ONE (18:15)
[2018-01-22] MEDS ORDERED: CEFTRIAXONE 1 GM/D5W RTU 1 GM/50 ML RTUPB IV SCH (22:00)
[2018-01-22] MEDS ORDERED: CEFTRIAXONE SODIUM 1,000 MG in DEXTROSE 5%-WATER 50 ML IV SCH (22:00)
[2018-01-23] MEDS: PIPERACILLIN SODIUM/TAZOBACTAM 3.375 GM in NORMAL SALINE 100 ML IV SCH ×4 (03:55→22:10)
[2018-01-23] MEDS: BACLOFEN 10 MG TABLET PO PRN ×2 (04:27→11:43)
[2018-01-23] MEDS ORDERED: DIAZEPAM 5 MG TABLET PO ONE (05:45)
[2018-01-23] MEDS: LANSOPRAZOLE 15 MG TAB.RAP.DR PO SCH (06:05)
[2018-01-23] MEDS: NORMAL SALINE 1000 ML 1,000 ML IV PRN (06:05)
[2018-01-23] MEDS: LEVOTHYROXINE SODIUM 0.1 MG TABLET PO SCH (06:05)
[2018-01-23] MEDS: LEVOTHYROXINE SODIUM 0.075 MG TABLET PO SCH (06:05)
--- NOTE | 2018-01-23 08:50 | PDOC CONSULTATION ---
Consultation Consult Date: 01/23/18 Consult reason:: Hematology/Oncology Consultation was requested for patient with history of Serous Carcinoma and autoimmune hemolytic anemia. History of Present Illness Admission Date/PCP: 01/22/18 00:50 REYNALDO GATES PA-C History of Present Illness: SHELLIE SALDANA is a 72 year old female who presented to the ED with a 3-4 day history of flank pain and fever. She has also had diarrhea during this time period. Her fever at home was up to 103. In the ED, she was found to have UTI , Urosepsis, and kidney stone. This morning, she states that the pain has now moved to her abdomen. She remains on IV antibiotics. 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 She underwent chemotherapy and surgery at that time which included pelvic exenteration, resection of the vagina, rectosigmoid colon, bladder, pelvic tumor, ileal conduit, end colostomy, and urostomy on 10/02/2016 in [place]. At her last visit with Dr. Da Silva in office on 12/24/2017, there was no evidence of disease recurrence, and patient had been doing well. Plan was to repeat staging CT scans again in 3 months time. Past Medical History Cardiac Medical History: Reports: Hyperlipidema, Hypertension Endocrine Medical History: Reports: Diabetes Mellitus Type 2 Renal/ Medical History: Reports: Nephrolithiasis Malignancy Medical History: Reports: Ovarian Cancer Psychiatric Medical History: Denies: Depression Hematology: Reports: Anemia - Autimmune hemolytic treated with steroids and Rituxan with complete respons Past Surgical History Past Surgical History: Reports: Colostomy, Hysterectomy, Orthopedic Surgery - right hip replacement, left shoulder, Other - Bladder removal with urostomy Social History Lives with: Family Smoking Status: Current Every Day Smoker - Smoke 1 pack per day. No alcohol or illicit drugs Cigarettes Packs Per Day: 1 Frequency of Alcohol Use: None Hx Recreational Drug Use: No Hx Prescription Drug Abuse: No Family History Family History: Reviewed & Not Pertinent Parental Family History Reviewed: Yes - Mother of aneurism. Father of cancer. Children Family History Reviewed: No Sibling(s) Family History Reviewed.: Yes Medication/Allergy Home Medications: Anastrozole [Arimidex 1 mg Tablet] 1 mg PO DAILY 01/22/18 Baclofen [Baclofen 10 mg Tablet] 10 mg PO TID PRN 01/22/18 Fenofibrate 160 mg PO DAILY 01/22/18 Glipizide [Glipizide ER] 5 mg PO DAILY 01/22/18 Levothyroxine Sodium [Synthroid] 175 mcg PO DAILY 01/22/18 Lisinopril [Prinivil 10 mg Tablet] 10 mg PO DAILY 01/22/18 Metformin HCl [Glucophage] 1,000 mg PO BID 01/22/18 Omeprazole 20 mg PO DAILY 01/22/18 Allergies/Adverse Reactions: morphine Allergy (Verified 10/07/17 17:32) Review of Systems Constitutional: PRESENT: chills, fatigue, fever(s). ABSENT: headache(s) Eyes: ABSENT: visual disturbances Ears: ABSENT: hearing changes Cardiovascular: ABSENT: chest pain Respiratory: ABSENT: dyspnea Gastrointestinal: PRESENT: diarrhea, nausea, vomiting Musculoskeletal: PRESENT: back pain Integumentary: ABSENT: rash Neurological: ABSENT: memory loss Psychiatric: ABSENT: anxiety, depression Physical Exam Vital Signs: Temp Pulse Resp BP Pulse Ox 99.8 F 92 17 111/35 L 98 01/23/18 04:28 01/23/18 04:28 01/23/18 04:28 01/23/18 04:28 01/23/18 04:28 Intake & Output 01/22/18 01/23/18 01/24/18 06:59 06:59 06:59 Intake Total 5 4748 Output Total 0 2225 Balance 5 2523 Weight 72.4 kg 72.6 kg General appearance: PRESENT: no acute distress, well-developed, well-nourished Exam: 72 year old female sitting in bed. Head exam: PRESENT: normocephalic Eye exam: PRESENT: EOMI Mouth exam: PRESENT: tongue midline Neck exam: ABSENT: lymphadenopathy, tenderness Respiratory exam: PRESENT: clear to auscultation yoli, unlabored Cardiovascular exam: PRESENT: RRR Pulses: PRESENT: normal dorsalis pedis pul GI/Abdominal exam: PRESENT: tenderness, other - Urostomy and colostomy in place. Extremities exam: ABSENT: pedal edema Musculoskeletal exam: PRESENT: normal inspection Neurological exam: PRESENT: alert, awake Psychiatric exam: PRESENT: appropriate affect Focused psych exam: ABSENT: restlessness Skin exam: PRESENT: normal color Results Laboratory Results: 01/22/18 04:33 01/22/18 04:33 Impressions: Chest X-Ray 01/21/18 21:48 IMPRESSION: NO SIGNIFICANT RADIOGRAPHIC FINDING IN THE CHEST. Limited or Localized CT 01/21/18 21:57 IMPRESSION: 1. Small nonobstructing left renal stone. 2. Extensive postsurgical changes in the abdomen and pelvis as above with otherwise no acute abnormality. Assessment & Plan - Diagnosis (1) Urinary tract infection Qualifiers: Urinary tract infection type: site unspecified Hematuria presence: without hematuria Qualified Code(s): N39.0 - Urinary tract infection, site not specified Is this a current diagnosis for this admission?: Yes Plan: With evidence of urosepsis. Currently on IV antibiotics. Temperature has improved. Her pain has now moved to abdomen, hopefully this means that the stone is migrating as well. (2) Ovarian cancer in remission Is this a current diagnosis for this admission?: Yes Plan: Recent CT scans were negative for disease recurrence. I discussed with the patient that it is still possible for her to form kidney stones and to pass kidney stones, despite her extensive surgical history. Will continue to follow her as out patient. No current treatment indicated. - Plan Summary Plan Summary: No evidence of anemia currently, but should follow CBC. I will be available if needed. Please call if further questions or concerns.
[2018-01-23] MEDS ORDERED: (PENDING PHARMACY ID) (Fenofibrate [Fenofibrate] 160 MG) PO SCH (10:00)
[2018-01-23] MEDS: FENOFIBRATE NANOCRYSTALLIZED 145 MG TABLET PO SCH (10:37)
[2018-01-23] MEDS: LISINOPRIL 10 MG TABLET PO SCH (11:43)
[2018-01-23] MEDS: ANASTROZOLE 1 MG TABLET PO SCH (11:43)
[2018-01-23] MEDS: INSULIN REG, HUMAN 100 UNIT/ML 3 ML VIAL (PYX) SUBCUT PRN ×2 (11:49→23:56)
--- NOTE | 2018-01-23 14:56 | PDOC PROGRESS REPORT ---
Subjective Progress Note for:: 01/23/18 Subjective:: The patient is having a headache this morning. She also complains of ongoing diarrhea. Reason For Visit: PYELONEPHRITIS DM II HTN SEPSIS Physical Exam Vital Signs: Temp Pulse Resp BP Pulse Ox 99.7 F 84 13 114/48 L 98 01/23/18 07:36 01/23/18 07:36 01/23/18 07:36 01/23/18 07:36 01/23/18 07:36 Intake & Output 01/22/18 01/23/18 01/24/18 06:59 06:59 06:59 Intake Total 5 4748 Output Total 0 2225 Balance 5 2523 Weight 72.4 kg 72.6 kg General appearance: PRESENT: other - The patient has a cold pack on her forehead due to headache. Head exam: PRESENT: atraumatic, normocephalic Eye exam: ABSENT: scleral icterus Neck exam: ABSENT: carotid bruit, JVD, lymphadenopathy, thyromegaly Respiratory exam: PRESENT: other - No increased work of breathing.. ABSENT: rales, rhonchi, wheezes Cardiovascular exam: PRESENT: RRR. ABSENT: diastolic murmur, rubs, systolic murmur Pulses: PRESENT: other - Diminished distal pulses. GI/Abdominal exam: PRESENT: hyperactive bowel sounds, soft. ABSENT: distended, guarding, mass, organolmegaly, rebound, tenderness Rectal exam: PRESENT: deferred Extremities exam: PRESENT: full ROM. ABSENT: calf tenderness, clubbing, pedal edema Neurological exam: PRESENT: alert, awake, oriented to person, oriented to place , oriented to time, oriented to situation, CN II-XII grossly intact. ABSENT: motor sensory deficit Psychiatric exam: PRESENT: appropriate affect, normal mood Skin exam: PRESENT: dry, intact, warm. ABSENT: cyanosis, rash Results Laboratory Results: 01/22/18 04:33 01/22/18 04:33 Impressions: Chest X-Ray 01/21/18 21:48 IMPRESSION: NO SIGNIFICANT RADIOGRAPHIC FINDING IN THE CHEST. Limited or Localized CT 01/21/18 21:57 IMPRESSION: 1. Small nonobstructing left renal stone. 2. Extensive postsurgical changes in the abdomen and pelvis as above with otherwise no acute abnormality. Assessment & Plan - Diagnosis (1) Pyelonephritis Is this a current diagnosis for this admission?: Yes Plan: Receiving IV zosyn. Urine cultures are positive for gram negative rods. Awaiting ID and sensitivities. (2) Gram-negative bacteremia Is this a current diagnosis for this admission?: Yes Plan: Blood cultures 2/2 positive for gram negative rods. Awaiting ID and sensitivities. (3) Diarrhea Qualifiers: Diarrhea type: unspecified type Qualified Code(s): R19.7 - Diarrhea, unspecified Is this a current diagnosis for this admission?: Yes Plan: Stool studies. (4) Diabetes mellitus type 2 in nonobese Is this a current diagnosis for this admission?: Yes Plan: FSBS and SSI. Hypoglycemic protocol and diabetic diet. (5) Fever Qualifiers: Fever type: due to other condition Qualified Code(s): R50.81 - Fever presenting with conditions classified elsewhere Is this a current diagnosis for this admission?: Yes Plan: Antipyretics. (6) Flank pain Is this a current diagnosis for this admission?: Yes Plan: Pain control. Subsiding. (7) Hypertension Qualifiers: Hypertension type: essential hypertension Qualified Code(s): I10 - Essential (primary) hypertension Is this a current diagnosis for this admission?: Yes Plan: Well controlled on current regimen. (8) Sepsis Is this a current diagnosis for this admission?: Yes Plan: Resolved. (9) Tachycardia Is this a current diagnosis for this admission?: Yes Plan: Resolved. (10) Vomiting Qualifiers: Vomiting type: unspecified Vomiting Intractability: non-intractable Nausea presence: with nausea Qualified Code(s): R11.2 - Nausea with vomiting, unspecified Is this a current diagnosis for this admission?: Yes Plan: Resolved. - Time Time Spent with patient: 35 or more minutes Medications reviewed and adjusted accordingly: Yes
[2018-01-23] MEDS ORDERED: TRAMADOL HCL 50 MG TABLET PO PRN (16:59)
[2018-01-24] MEDS: PIPERACILLIN SODIUM/TAZOBACTAM 3.375 GM in NORMAL SALINE 100 ML IV SCH ×2 (02:36→09:06)
[2018-01-24 04:52] LABS: ABSOLUTE EOSINOPHILS # (AUTO) 0.1 10^3/uL (0.0-0.6); ABSOLUTE LYMPHOCYTES (AUTO) 0.6 10^3/uL (0.5-4.7); ABSOLUTE MONOCYTES (AUTO) 0.6 10^3/uL (0.1-1.4); ABSOLUTE NEUT (AUTO) 4.4 10^3/uL (1.7-8.2); BASOPHILS % (AUTO) 0.3 % (0-2); EOSINOPHILS % (AUTO) 2.6 % (0-6); HEMATOCRIT 30.6 % (36.0-47.0); HEMOGLOBIN 10.4 g/dL (12.0-15.5); LYMPHOCYTES % (AUTO) 9.8 % (13-45); MEAN CORPUSCULAR HEMOGLOBIN 28.2 pg (27.0-33.4); MEAN CORPUSCULAR HGB CONC 33.9 g/dL (32.0-36.0); MEAN CORPUSCULAR VOLUME 83 fl (80-97); MONOCYTES % (AUTO) 9.8 % (3-13); PLATELET COUNT 128 10^3/uL (150-450); RED BLOOD COUNT 3.68 10^6/uL (3.72-5.28); RED CELL DISTRIBUTION WIDTH 15.8 % (11.5-14.0); SEGMENTED NEUTROPHILS % (AUTO) 77.5 % (42-78); TOTAL CELLS COUNTED % (AUTO) 100 %; WHITE BLOOD COUNT 5.7 10^3/uL (4.0-10.5)
[2018-01-24 05:12] LABS: ANION GAP 11 (5-19); BLOOD UREA NITROGEN 16 mg/dL (7-20); CARBON DIOXIDE 18 mmol/L (22-30); CHLORIDE 109 mmol/L (98-107); GLUCOSE 126 mg/dL (75-110); POTASSIUM 4.6 mmol/L (3.6-5.0); SODIUM 138.4 mmol/L (137-145)
[2018-01-24] MEDS: LEVOTHYROXINE SODIUM 0.1 MG TABLET PO SCH (05:51)
[2018-01-24] MEDS: LEVOTHYROXINE SODIUM 0.075 MG TABLET PO SCH (05:51)
[2018-01-24] MEDS: LANSOPRAZOLE 15 MG TAB.RAP.DR PO SCH (05:51)
[2018-01-24 07:52] VITALS: BP 118/54
--- NOTE | 2018-01-24 08:06 | PDOC PROGRESS REPORT ---
Subjective Progress Note for:: 01/24/18 Subjective:: Patient still has some pain in RLQ abdomen, but she is eating well and walked in [place] yesterday. ROS: Constipation, sleepiness. No dyspnea. Reason For Visit: PYELONEPHRITIS DM II HTN SEPSIS Physical Exam Vital Signs: Temp Pulse Resp BP Pulse Ox 98.8 F 72 18 118/54 L 97 01/24/18 07:51 01/24/18 07:51 01/24/18 07:51 01/24/18 07:51 01/24/18 07:51 Intake & Output 01/23/18 01/24/18 01/25/18 06:59 06:59 06:59 Intake Total 4748 3443 Output Total 7831 4170 Balance 2523 -2157 Weight 72.6 kg 75.7 kg General appearance: PRESENT: no acute distress Head exam: PRESENT: normocephalic Respiratory exam: PRESENT: unlabored Neurological exam: PRESENT: alert, awake, oriented to person, oriented to place , oriented to time, oriented to situation Psychiatric exam: PRESENT: appropriate affect Skin exam: PRESENT: normal color Results Laboratory Results: 01/24/18 04:30 01/24/18 04:30 01/24/18 01/24/18 04:30 04:30 WBC 5.7 RBC 3.68 L Hgb 10.4 L Hct 30.6 L MCV 83 MCH 28.2 MCHC 33.9 RDW 15.8 H Plt Count 128 L Seg Neutrophils % 77.5 Lymphocytes % 9.8 L Monocytes % 9.8 Eosinophils % 2.6 Basophils % 0.3 Absolute Neutrophils 4.4 Absolute Lymphocytes 0.6 Absolute Monocytes 0.6 Absolute Eosinophils 0.1 Absolute Basophils 0.0 Sodium 138.4 Potassium 4.6 Chloride 109 H Carbon Dioxide 18 L Anion Gap 11 BUN 16 Creatinine 1.03 Est GFR ( Amer) > 60 Est GFR (Non-Af Amer) 53 L Glucose 126 H Calcium 9.0 Impressions: Chest X-Ray 01/21/18 21:48 IMPRESSION: NO SIGNIFICANT RADIOGRAPHIC FINDING IN THE CHEST. Limited or Localized CT 01/21/18 21:57 IMPRESSION: 1. Small nonobstructing left renal stone. 2. Extensive postsurgical changes in the abdomen and pelvis as above with otherwise no acute abnormality. Assessment & Plan - Diagnosis (1) Urinary tract infection Qualifiers: Urinary tract infection type: site unspecified Hematuria presence: without hematuria Qualified Code(s): N39.0 - Urinary tract infection, site not specified Is this a current diagnosis for this admission?: Yes Plan: Await final culture results, but her fever has responded well to current antibiotics. (2) Ovarian cancer in remission Is this a current diagnosis for this admission?: Yes Plan: Will follow as outpatient. - Plan Summary Plan Summary: I will sign off. Happy to follow as outpatient and please call if further concerns.
[2018-01-24] MEDS: FENOFIBRATE NANOCRYSTALLIZED 145 MG TABLET PO SCH (09:07)
[2018-01-24] MEDS: NORMAL SALINE 1000 ML 1,000 ML IV PRN (10:30)
[2018-01-24] MEDS: LISINOPRIL 10 MG TABLET PO SCH (12:54)
[2018-01-24] MEDS: ANASTROZOLE 1 MG TABLET PO SCH (12:54)
--- NOTE | 2018-01-24 13:44 | PDOC DISCHARGE SUMMARY ---
General - Admit/Disc Date/PCP Admission Date/Primary Care Provider: 01/22/18 00:50 REYNALDO GATES PA-C Discharge Date: 01/24/18 - Discharge Diagnosis (1) Pyelonephritis Is this a current diagnosis for this admission?: Yes (2) Gram-negative bacteremia Is this a current diagnosis for this admission?: Yes (3) Diarrhea Is this a current diagnosis for this admission?: Yes (4) Diabetes mellitus type 2 in nonobese Is this a current diagnosis for this admission?: Yes (5) Fever Is this a current diagnosis for this admission?: Yes (6) Flank pain Is this a current diagnosis for this admission?: Yes (7) Hypertension Is this a current diagnosis for this admission?: Yes (8) Sepsis Is this a current diagnosis for this admission?: Yes (9) Tachycardia Is this a current diagnosis for this admission?: Yes (10) Vomiting Is this a current diagnosis for this admission?: Yes - Additional Information Discharge Diet: Diabetic Discharge Activity: Activity As Tolerated, No Driving Prescriptions: Amoxicillin/Potassium Clav [Augmentin 500-125 Tablet] 1 each PO TID 4 Days #12 tablet Levofloxacin [Levaquin 750 mg Tablet] 750 mg PO DAILY #12 tab Tramadol HCl [Ultram 50 mg Tablet] 50 mg PO Q8HP PRN #20 tablet PRN Reason: Home Medications: Anastrozole [Arimidex 1 mg Tablet] 1 mg PO DAILY 01/22/18 Baclofen [Baclofen 10 mg Tablet] 10 mg PO TID PRN 01/22/18 Fenofibrate 160 mg PO DAILY 01/22/18 Glipizide [Glipizide ER] 5 mg PO DAILY 01/22/18 Levothyroxine Sodium [Synthroid] 175 mcg PO DAILY 01/22/18 Lisinopril [Prinivil 10 mg Tablet] 10 mg PO DAILY 01/22/18 Metformin HCl [Glucophage] 1,000 mg PO BID 01/22/18 Omeprazole 20 mg PO DAILY 01/22/18 Cholecalciferol (Vitamin D3) [Vitamin D3 1000 Unit Tablet] 1,000 unit PO DAILY 01/23/18 Diazepam [Valium 5 mg Tablet] 5 mg PO Q12 PRN 01/23/18 Fluticasone Propionate [Flonase Nasal [place] 50 Mcg/[place] 16 gm] 1 spray DAILY Omeprazole Magnesium [Prilosec Otc] 20 mg PO DAILY 01/23/18 Sitagliptin Phosphate [Januvia] 100 mg PO DAILY 01/23/18 Amoxicillin/Potassium Clav [Augmentin 500-125 Tablet] 1 each PO TID 4 Days #12 tablet 01/24/18 Levofloxacin [Levaquin 750 mg Tablet] 750 mg PO DAILY #12 tab 01/24/18 Tramadol HCl [Ultram 50 mg Tablet] 50 mg PO Q8HP PRN #20 tablet 01/24/18 History of Present Illness History of Present Illness: SHELLIE HORTON is a 72 year old female who comes to the emergency department complaining of fever. States has been sick for the last 2 days with generalized weakness, lately as associated with shaking chills and fever up to 104.3 at home, generalized body achiness. Right flank pain that radiated to her right lower abdomen. Persistent nausea and nonbloody vomiting. She describes the flank pain up to 8/10 in intensity. Associated symptoms lightheadedness, cough, yellowish sputum. Denies chest pain. The patient has a urostomy and colostomy in place Denies frequent urinary tract infections In the emergency department T102.7 feet 117 BP 167/58. White blood cells 13.3 with left shift and bands. In the emergency department sick looking with persistent nausea and vomiting. She has a positive urinalysis for infection, in the ED her first urine was discarded and sent her urine from a clear urostomy bag. Chest x-ray unremarkable. CT scan of the abdomen and pelvis shows nephrolithiasis, no ureterolithiasis or acute findings. Patient meets criteria for sepsis. Hospital Course Hospital Course: The patient was admitted and was placed on IV antibiotics. Her glucoses were followed with FSBS and SSI. She received IV fluid support. She was continued on her home medications as possible. Blood and urine cultures were obtained. Urine cultures grew out Klebsiella Oxytoca and E. Coli. Blood cultures grew out E. Coli. Both were sensitive to Levaquin. Augmentin was included in home meds to provide double coverage for the Klebsiella. She is doing well and will be discharged to home with antibiotics and will complete 14 days of IV-equivalent antibiotics and a course of antibiotcs to treat her Klebsiella. Physical Exam Vital Signs: Temp Pulse Resp BP Pulse Ox 98.8 F 72 18 118/54 L 97 01/24/18 13:06 01/24/18 13:06 01/24/18 13:06 01/24/18 13:06 01/24/18 13:06 Intake & Output 01/23/18 01/24/18 01/25/18 06:59 06:59 06:59 Intake Total 4748 3443 Output Total 2229 5600 Balance 2523 -2157 Weight 72.6 kg 75.7 kg General appearance: PRESENT: no acute distress, cooperative Respiratory exam: PRESENT: other - No increased work of breathing.. ABSENT: rales, rhonchi, wheezes Cardiovascular exam: PRESENT: RRR, other - No lateral PMI. No thrills.. ABSENT : gallop, rubs, systolic murmur GI/Abdominal exam: PRESENT: normal bowel sounds, soft, other. ABSENT: hernia, mass, organolmegaly, tenderness Neurological exam: PRESENT: alert, awake, oriented to person, oriented to place , oriented to time, oriented to situation, CN II-XII grossly intact. ABSENT: motor sensory deficit Skin exam: PRESENT: dry, intact, warm Results Laboratory Results: 01/24/18 04:30 01/24/18 04:30 01/24/18 01/24/18 04:30 04:30 WBC 5.7 RBC 3.68 L Hgb 10.4 L Hct 30.6 L MCV 83 MCH 28.2 MCHC 33.9 RDW 15.8 H Plt Count 128 L Seg Neutrophils % 77.5 Lymphocytes % 9.8 L Monocytes % 9.8 Eosinophils % 2.6 Basophils % 0.3 Absolute Neutrophils 4.4 Absolute Lymphocytes 0.6 Absolute Monocytes 0.6 Absolute Eosinophils 0.1 Absolute Basophils 0.0 Sodium 138.4 Potassium 4.6 Chloride 109 H Carbon Dioxide 18 L Anion Gap 11 BUN 16 Creatinine 1.03 Est GFR ( Amer) > 60 Est GFR (Non-Af Amer) 53 L Glucose 126 H Calcium 9.0 01/21/18 23:15 Urine Culture - Final Catheterized Urine Escherichia Coli Klebsiella Oxytoca 01/21/18 22:00 Blood Culture - Final Blood Escherichia Coli 01/21/18 19:20 Blood Culture - Final Blood Escherichia Coli Impressions: Chest X-Ray 01/21/18 21:48 IMPRESSION: NO SIGNIFICANT RADIOGRAPHIC FINDING IN THE CHEST. Limited or Localized CT 01/21/18 21:57 IMPRESSION: 1. Small nonobstructing left renal stone. 2. Extensive postsurgical changes in the abdomen and pelvis as above with otherwise no acute abnormality. Qualifiers - * PATIENT BEING DISCHARGED WITH ANY OF THE FOLLOWING DIAGNOSIS: No
== END 2018-01-24 13:35 | disposition home health service (06) | DRG 872 ==
LOC: ER 18:34 → EH 01-22 00:50 → 3W 01-22 04:15
PROVIDERS: ADMIT Internal Medicine; ATTEND Internal Medicine
DX: A41.9 Sepsis, unspecified organism (principal); N39.0 Urinary tract infection, site not specified; D59.1 Other autoimmune hemolytic anemias; C56.9 Malignant neoplasm of unspecified ovary; B96.20 Unspecified Escherichia coli [E. coli] as the cause of diseases classified elsewhere; B96.1 Klebsiella pneumoniae [K. pneumoniae] as the cause of diseases classified elsewhere; E11.8 Type 2 diabetes mellitus with unspecified complications; I10 Essential (primary) hypertension; R19.7 Diarrhea, unspecified; F17.210 Nicotine dependence, cigarettes, uncomplicated; Z90.6 Acquired absence of other parts of urinary tract; Z90.49 Acquired absence of other specified parts of digestive tract; Z93.3 Colostomy status; Z79.899 Other long term (current) drug therapy
CPT/HCPCS: 36415; 71045; 76380; 80048; 80053; 81001; 82962; 83605; 83690; 85025; 87040; 87077; 87086; 87088; 87186; 96361; 96374; 99285; J0696; J1815; J2543; J2765; J3490; J7030

== ENCOUNTER → 2018-03-05 | Outpatient (CLI) | payer MEDICARE ==
--- NOTE | 2018-03-05 16:25 | RADIOLOGY REPORT (SQ) ---
EXAM DESCRIPTION: SHOULDER RIGHT 2 OR MORE VIEWS COMPLETED DATE/TIME: 03/05/2018 4:11 pm REASON FOR STUDY: RT SHOULDER PAIN COMPARISON: None. NUMBER OF VIEWS: Three views. TECHNIQUE: Internal rotation, external rotation, and Y view images acquired of the right shoulder. LIMITATIONS: None. FINDINGS: MINERALIZATION: Normal. BONES: No acute fracture or dislocation. No worrisome bone lesions. JOINTS: No dislocation. VISUALIZED LUNGS AND RIBS: No pneumothorax. No rib fracture. SOFT TISSUES: No radiopaque foreign body. OTHER: [id number] is in place. IMPRESSION: NEGATIVE STUDY OF THE RIGHT SHOULDER. NO RADIOGRAPHIC EVIDENCE OF ACUTE INJURY. TECHNICAL DOCUMENTATION: JOB ID: [id number] [employer]- All Rights Reserved Reading location - IP/workstation name: [email or web address]
--- NOTE | 2018-03-05 16:25 | RADIOLOGY REPORT (SQ) ---
EXAM DESCRIPTION: CHEST PA/LATERAL COMPLETED DATE/TIME: 03/05/2018 4:11 pm REASON FOR STUDY: PERSISTANT COUGH COMPARISON: 01/21/2018 EXAM PARAMETERS: NUMBER OF VIEWS: two views TECHNIQUE: Digital Frontal and Lateral radiographic views of the chest acquired. RADIATION DOSE: NA LIMITATIONS: none FINDINGS: LUNGS AND PLEURA: No opacities, masses or pneumothorax. No pleural effusion. MEDIASTINUM AND HILAR STRUCTURES: No masses or contour abnormalities. HEART AND VASCULAR STRUCTURES: Heart normal size. No evidence for failure. BONES: No acute findings. HARDWARE: Cemehj-U-Uist remains in place. OTHER: No other significant finding. IMPRESSION: NO SIGNIFICANT RADIOGRAPHIC FINDING IN THE CHEST. TECHNICAL DOCUMENTATION: JOB ID: [id number] [employer]- All Rights Reserved Reading location - IP/workstation name: [email or web address]
== END ==
LOC: OD 15:34
PROVIDERS: ATTEND Physician Assistant
DX: M25.511 Pain in right shoulder (principal); R05 Cough
CPT/HCPCS: 71046

== ENCOUNTER → 2018-03-26 | Outpatient (CLI) | payer MEDICARE ==
--- NOTE | 2018-03-26 09:08 | RADIOLOGY REPORT (SQ) ---
EXAM DESCRIPTION: CT ABD/PELVIS WITH IV ONLY COMPLETED DATE/TIME: 03/26/2018 8:51 am REASON FOR STUDY: OVARIAN CA C56.2 MALIGNANT NEOPLASM OF LEFT OVARY COMPARISON: 12/20/2017. 09/13/2017 TECHNIQUE: CT scan of the abdomen and pelvis performed using helical scanning technique with dynamic intravenous contrast injection. No oral contrast. Images reviewed with lung, soft tissue, and bone windows. Reconstructed coronal and sagittal MPR images reviewed. Delayed images for evaluation of the urinary system also acquired. All images stored on PACS. All CT scanners at this facility use dose modulation, iterative reconstruction, and/or weight based d osing when appropriate to reduce radiation dose to as low as reasonably achievable (ALARA). [facility]: Dose Right [facility]: CareDose [facility]: Dose Right [facility]: Teradose 4D [facility]: Smart [employer] CONTRAST TYPE AND DOSE: Reported on CT chest same date. RENAL FUNCTION: See above. RADIATION DOSE: . LIMITATIONS: None. FINDINGS: LIVER: Subcentimeter central liver cyst, stable. Mildly nodular liver contours, chronic. SPLEEN: No lesions. Borderline enlarged, just over 13 cm. PANCREAS: No masses. No significant calcifications. No adjacent inflammation or peripancreatic fluid collections. Pancreatic duct not dilated. GALLBLADDER: Distended. Tiny stones. ADRENAL GLANDS: No significant masses or asymmetry. RIGHT KIDNEY AND URETER: Cysts. No developing urinary obstruction or stones. Slight fullness in the ureter, chronic. LEFT KIDNEY AND URETER: Suspect a stable upper pole subcentimeter cyst, too small to further characte rize. No developing obstruction. Inferior pole chronic nonobstructive nephrolithiasis. AORTA AND VESSELS: Dense atherosclerotic calcification without aneurysm or dissection. Generally pat ent major arterial and venous structures. RETROPERITONEUM: No retroperitoneal adenopathy, hemorrhage or masses. BOWEL AND PERITONEAL CAVITY: Distal colectomy with left lower quadrant ostomy. No suspicious bowel w all thickening or evidence of obstruction. No ascites or bulky implants or adenopathy. APPENDIX: Normal. PELVIS: Status post cystectomy with right lower quadrant urostomy. No pelvic fluid or mass detected. ABDOMINAL WALL: No evidence of mass or developing hernia. BONES: Osteopenia. No developing bone lesions. OTHER: No other significant finding. IMPRESSION: 1. Stable postoperative changes, status post cystectomy and distal colectomy with ostomy is as above. 2. No evidence of metastatic disease. No acute abnormality. TECHNICAL DOCUMENTATION: JOB ID: [id number] Quality ID # [id number]: Final reports with documentation of one or more dose reduction techniques (e.g., Au tomated exposure control, adjustment of the mA and/or kV according to patient size, use of iterative reconstruction technique) 2010 [employer]- All Rights Reserved Reading location - IP/workstation name: [email or web address]
--- NOTE | 2018-03-26 09:08 | RADIOLOGY REPORT (SQ) ---
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 Images reviewed with lung, soft tissue and bone windows. Reconstructed coronal and sagittal MPR and MIP images reviewed. All images stored on PACS. All CT scanners at this facility use dose modulation, iterative reconstruction, and/or weight based d osing when appropriate to reduce radiation dose to as low as reasonably achievable (ALARA). [facility]: Dose Right [facility]: CareDose [facility]: Dose Right [facility]: Teradose 4D [facility]: [employer] CONTRAST TYPE AND DOSE: contrast/concentration: Isovue 350.00 mg/ml; Total Contrast Delivered: 79.0 ml; Total Saline Delivered: 65.0 ml RENAL FUNCTION: Creatinine 0.9 RADIATION DOSE: CT Rad equipment meets quality standard of care and radiation dose reduction techniq ues were employed. CTDIvol: 7.1 - 9.9 mGy. DLP: 1131 mGy-cm. . LIMITATIONS: None. FINDINGS: LUNGS AND PLEURA: No opacities, nodules, masses. No pneumothorax. No effusions. HILAR AND MEDIASTINAL STRUCTURES: No identified masses or abnormal nodes. HEART AND VASCULAR STRUCTURES: No aneurysm or dissection. No central pulmonary emboli. No pericardi al effusion. HARDWARE: None in the chest. UPPER ABDOMEN: See separate report of the CT of the abdomen. THYROID AND OTHER SOFT TISSUES: No masses. No adenopathy. BONES: No acute findings. OTHER: Right-sided port tip in the SVC. IMPRESSION: No evidence of metastatic disease. TECHNICAL DOCUMENTATION: JOB ID: [id number] Quality ID # [id number]: Final reports with documentation of one or more dose reduction techniques (e.g., Au tomated exposure control, adjustment of the mA and/or kV according to patient size, use of iterative reconstruction technique) 2010 [employer]- All Rights Reserved Reading location - IP/workstation name: [email or web address]
== END ==
LOC: RAD 08:15
PROVIDERS: ATTEND Physician Assistant Medical
DX: C56.2 Malignant neoplasm of left ovary (principal)
CPT/HCPCS: 71260; 74177; 82565

== ENCOUNTER → 2018-05-02 | Outpatient (CLI) | payer MEDICARE ==
--- NOTE | 2018-05-02 11:05 | RADIOLOGY REPORT (SQ) ---
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 TECHNIQUE: Sagittal and Axial imaging includes T1, T1 post gadolinium, T2, STIR and gradient echo se quences. Coronal T2/HASTE imaging. CONTRAST TYPE AND DOSE: 15 mL Dotarem. RENAL FUNCTION: GFR > 60. LIMITATIONS: None. FINDINGS: VISUALIZED UPPER ABDOMEN: Limited evaluation. Renal cysts. No acute or suspicious findi ngs suggested. SEGMENTATION: No transitional anatomy. The lowest well-developed disc space is labeled L5-S1. ALIGNMENT: Anatomic. VERTEBRAE: Intact. No fractures. BONE MARROW: Normal. No marrow replacement or reactive changes. DISC SIGNAL: Normal. No significant abnormal signal or loss of height. POSTERIOR ELEMENTS: Generally intact. No pars defect evident. HARDWARE: None in the spine. CORD AND CONUS: Normal in size and signal intensity. Conus at the appropriate level. SOFT TISSUES: No aortic aneurysm seen. No bulky retroperitoneal adenopathy or mass. No paraspinal mas s or fluid. L1-L2: No significant spinal stenosis or exit foraminal stenosis. L2-L3: Diffuse left lateral disc bulge. No significant spinal stenosis or exit foraminal stenosis. L3-L4: No significant disc bulge. Mild facet arthropathy. No significant spinal stenosis or exit fo raminal stenosis. L4-L5: No significant disc bulge. Moderate facet arthropathy. No significant spinal stenosis or exi t foraminal stenosis. L5-S1: No significant spinal stenosis or exit foraminal stenosis. LOWER THORACIC: Incompletely imaged. No stenosis seen. SACRUM: Visualized upper sacrum intact. ENHANCEMENT: No abnormal enhancement. OTHER: No other significant findings. IMPRESSION: 1. LEFT LATERAL DISC BULGE AT L2-L3. NO STENOSIS OR IMPINGEMENT. 2. FACET ARTHROPATHY IN THE LOWER LUMBAR SPINE. 3. NO OTHER SIGNIFICANT FINDINGS. NO ENHANCING LESIONS. TECHNICAL DOCUMENTATION: JOB ID: [id number]- All Rights Reserved Reading location - IP/workstation name: [facility]
== END ==
LOC: RAD 09:03
PROVIDERS: ATTEND Internal Medicine
DX: C56.2 Malignant neoplasm of left ovary (principal)
CPT/HCPCS: 72158; A9576

== ENCOUNTER → 2018-05-13 | Outpatient (CLI) | payer MEDICARE ==
[2018-05-13 10:12] LABS: ABSOLUTE EOSINOPHILS # (AUTO) 0.1 10^3/uL (0.0-0.6); ABSOLUTE LYMPHOCYTES (AUTO) 1.2 10^3/uL (0.5-4.7); ABSOLUTE MONOCYTES (AUTO) 0.4 10^3/uL (0.1-1.4); ABSOLUTE NEUT (AUTO) 2.9 10^3/uL (1.7-8.2); BASOPHILS % (AUTO) 0.7 % (0-2); EOSINOPHILS % (AUTO) 2.7 % (0-6); HEMOGLOBIN 12.1 g/dL (12.0-15.5); LYMPHOCYTES % (AUTO) 25.5 % (13-45); MEAN CORPUSCULAR HEMOGLOBIN 30.2 pg (27.0-33.4); MEAN CORPUSCULAR HGB CONC 35.4 g/dL (32.0-36.0); MEAN CORPUSCULAR VOLUME 85 fl (80-97); MONOCYTES % (AUTO) 8.1 % (3-13); PLATELET COUNT 206 10^3/uL (150-450); RED BLOOD COUNT 3.99 10^6/uL (3.72-5.28); RED CELL DISTRIBUTION WIDTH 14.7 % (11.5-14.0); TOTAL CELLS COUNTED % (AUTO) 100 %; WHITE BLOOD COUNT 4.5 10^3/uL (4.0-10.5)
[2018-05-13 10:43] LABS: ALANINE AMINOTRANSFERASE 50 U/L (9-52); ALKALINE PHOSPHATASE 41 U/L (38-126); ANION GAP 15 (5-19); ASPARTATE AMINO TRANSFERASE 73 U/L (14-36); BILIRUBIN,DIRECT 0.3 mg/dL (0.0-0.4); BILIRUBIN,TOTAL 0.5 mg/dL (0.2-1.3); BLOOD UREA NITROGEN 20 mg/dL (7-20); CALCIUM 10.9 mg/dL (8.4-10.2); CARBON DIOXIDE 23 mmol/L (22-30); CHLORIDE 103 mmol/L (98-107); GLUCOSE 116 mg/dL (75-110); POTASSIUM 5.6 mmol/L (3.6-5.0); TOTAL PROTEIN 8.3 g/dL (6.3-8.2)
== END ==
LOC: OD 08:48
PROVIDERS: ATTEND Internal Medicine Gastroenterology
DX: R19.7 Diarrhea, unspecified (principal)
CPT/HCPCS: 36415; 80048; 80076; 82705; 85025; 87324; 89055

== ENCOUNTER → 2018-06-16 | Outpatient (CLI) | payer MEDICARE ==
--- NOTE | 2018-06-16 14:09 | RADIOLOGY REPORT (SQ) ---
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 TECHNIQUE: Multiplanar imaging includes noncontrasted T1, T2, FLAIR, diffusion with ADC map and post gadolinium contrast T1 sequences. Images stored on PACS. CONTRAST TYPE AND DOSE: 15 mL Dotarem. RENAL FUNCTION: GFR > 60. LIMITATIONS: None. FINDINGS: ANATOMY: No anomalies. Normal vascular flow voids. Pituitary fossa normal. CSF SPACES: Normal in size and contour. No hemorrhage. CEREBRUM: Sulci and gyri normal in size and contour. Normal white matter signal on FLAIR imaging. No evidence of hemorrhage, mass, or extraaxial fluid collection. No abnormal enhancement post contrast. POSTERIOR FOSSA: No signal alteration. No hemorrhage. No edema, masses, or mass effect. Internal tim tory canals, cerebellopontine angles, mastoids normal. No enhancing lesions. No abnormal enhancement post contrast. DIFFUSION IMAGING: Negative for acute or subacute infarction. ORBITS: No masses. Globes normal. PARANASAL SINUSES: No fluid levels. Mucosa normal. OTHER: No other significant finding. IMPRESSION: NORMAL MRI OF THE BRAIN WITHOUT AND WITH INTRAVENOUS GADOLINIUM CONTRAST. EVIDENCE OF ACUTE STROKE: NO. TECHNICAL DOCUMENTATION: JOB ID: [id number] [employer]- All Rights Reserved Reading location - IP/workstation name: [facility]
--- NOTE | 2018-06-16 14:24 | RADIOLOGY REPORT (SQ) ---
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 TECHNIQUE: CT scan of the chest performed using helical scanning technique with dynamic intravenous contrast injection. Images reviewed with lung, soft tissue and bone windows. Reconstructed coronal a nd sagittal MPR images reviewed. All images stored on PACS. CT scan of the abdomen and pelvis performed with intravenous and without cysts oral contrastusing hel ical scanning technique with dynamic intravenous contrast injection. Images reviewed with lung, soft tissue and bone windows. Reconstructed coronal and sagittal MPR images reviewed. Delayed images fo r evaluation of the urinary system also acquired and evaluated. All images stored on PACS. All CT scanners at this facility use dose modulation, iterative reconstruction, and/or weight based d osing when appropriate to reduce radiation dose to as low as reasonably achievable (ALARA). [facility]: Dose Right [facility]: CareDose [facility]: Dose Right [facility]: Teradose 4D [facility]: Smart [employer] RADIATION DOSE: CT Rad equipment meets quality standard of care and radiation dose reduction techniq ues were employed. CTDIvol: 4.7 - 5.4 mGy. DLP: 768 mGy-cm. . LIMITATIONS: None. FINDINGS: CHEST: LUNGS AND PLEURA: No opacities, nodules, masses. No pneumothorax. No effusions. HILAR AND MEDIASTINAL STRUCTURES: No identified masses or abnormal nodes. HEART AND VASCULAR STRUCTURES: No aneurysm or dissection. No central pulmonary emboli. No pericardi al effusion. HARDWARE: None. THYROID AND OTHER SOFT TISSUES: No masses. No adenopathy. BONES: No significant finding. OTHER: No other significant finding. ABDOMEN AND PELVIS: LIVER: Normal size. No masses. No dilated ducts. Diffuse low attenuation from fatty infiltration. Subcentimeter cyst in the left lobe liver unchanged SPLEEN: Normal size. No focal lesions. PANCREAS: No masses. No significant calcifications. No adjacent inflammation or peripancreatic fluid collections. Pancreatic duct not dilated. GALLBLADDER: No identified stones by CT criteria. No inflammatory changes to suggest cholecystitis. ADRENAL GLANDS: No significant masses or asymmetry. RIGHT KIDNEY AND URETER: Chronic cortical scarring along the right upper pole kidney, multiple stable right renal cysts. No right renal mass. Stable ectasia of the right ureter. No urinary calculi on the right LEFT KIDNEY AND URETER: Stable cortical thinning in the left mid pole kidney. 4 mm and 2 mm left low er pole intrarenal nonobstructive stones. No left renal masses. No hydronephrosis/hydroureter. AORTA AND VESSELS: Heavily calcified abdominal aorta without aneurysm. Suspect greater than 75% sten osis proximal right common iliac artery RETROPERITONEUM: No retroperitoneal adenopathy, hemorrhage or masses. BOWEL AND PERITONEAL CAVITY: No masses or inflammatory changes. No free fluid or peritoneal masses. APPENDIX: Normal. ABDOMINAL WALL: Right lower quadrant urinary conduit. No stomal hernia. Left lower quadrant colosto my with small stomal hernia containing a short segment of nonobstructed colon PELVIS: Post hysterectomy and cystectomy. No masses or adenopathy. BONES: Right hip replacement OTHER: No other significant finding. IMPRESSION: No CT evidence of metastatic disease over the chest abdomen or pelvis TECHNICAL DOCUMENTATION: JOB ID: [id number] Quality ID # [id number]: Final reports with documentation of one or more dose reduction techniques (e.g., Au tomated exposure control, adjustment of the mA and/or kV according to patient size, use of iterative reconstruction technique) 2010 [employer]- All Rights Reserved Reading location - IP/workstation name: [facility]-RR
== END ==
LOC: RAD 12:59
PROVIDERS: ATTEND Physician Assistant Medical
DX: C56.2 Malignant neoplasm of left ovary (principal)
CPT/HCPCS: 70553; 71260; 74177; A9576

== ENCOUNTER → 2018-08-08 | Outpatient (CLI) | payer MEDICARE ==
[2018-08-08 15:01] LABS: ANION GAP 11 (5-19); BLOOD UREA NITROGEN 18 mg/dL (7-20); CALCIUM 9.5 mg/dL (8.4-10.2); CARBON DIOXIDE 23 mmol/L (22-30); CHLORIDE 103 mmol/L (98-107); GLUCOSE 145 mg/dL (75-110); POTASSIUM 4.4 mmol/L (3.6-5.0); SODIUM 136.6 mmol/L (137-145)
== END ==
LOC: OD 13:43
PROVIDERS: ATTEND Physician Assistant
DX: E87.1 Hypo-osmolality and hyponatremia (principal)
CPT/HCPCS: 36415; 80048

== ENCOUNTER 2018-12-09 10:31 | Emergency (ER) | payer MEDICARE ==
--- NOTE | 2018-12-09 11:01 | ER Document Report ---
ED Medical Screen (RME) - General Chief Complaint: Fall Injury Stated Complaint: FALL/BACK PAIN, ANKLE PAIN,ARM PAIN Time Seen by Provider: 12/09/18 10:51 Primary Care Provider: DELL TAMAYO MD [Primary Care Provider] - Follow up as needed Mode of Arrival: Wheelchair Information source: Patient Notes: Patient presents emergency department for multiple injuries post fall. Patient reports she received an injection in her right hip yesterday. He discovered that she could not feel her leg. She reports she fell several times yesterday she slipped off the bed. She reports today her leg felt better she started walking down some steps outside and fell. She denies hitting her head but she complains of tailbone pain right ankle foot pain. Denies change in LOC. 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 Patient declines pain med. Right ankle swollen some ecchymosis to her second digit. I have greeted and performed a rapid initial assessment of this patient. A comprehensive ED assessment and evaluation of the patient, analysis of test results and completion of the medical decision making process will be conducted by additional ED providers. Dictation of this chart was performed using voice recognition software; therefore, there may be some unintended grammatical errors. TRAVEL OUTSIDE OF THE [place] IN LAST 30 DAYS: No - Related Data Allergies/Adverse Reactions: morphine Allergy (Verified 12/09/18 10:41) Past Medical History - Social History Chew tobacco use (# tins/day): No Frequency of alcohol use: Occasional Drug Abuse: None - Past Medical History Cardiac Medical History: Reports: Hx Hypercholesterolemia, Hx Hypertension Endocrine Medical History: Reports: Hx Diabetes Mellitus Type 2 Renal/ Medical History: Reports: Hx Kidney Stones. Denies: Hx Peritoneal Dialysis Malignancy Medical History: Reports: Hx Ovarian Cancer Psychiatric Medical History: Denies: Hx Depression Past Surgical History: Reports: Hx Abdominal Surgery - urostomy and colostomy, Hx Colostomy, Hx Gynecologic Surgery - ovarian, Hx Hysterectomy, Hx Kidney (Renal Surgery), Hx Orthopedic Surgery - right hip replacement, left shoulder, Other - Bladder removal with urostomy - Immunizations Immunizations up to date: Yes Hx Diphtheria, Pertussis, Tetanus Vaccination: Yes History of Influenza Vaccine for 04/2017 - 09/2017 Season: Yes Influenza Administration Date for 04/2017 - 09/2017 Season: 04/07/17 Physical Exam - Vital signs Vitals: Temp Pulse Resp BP Pulse Ox 97.9 F 100 16 136/58 H 97 12/09/18 10:44 12/09/18 10:44 12/09/18 10:44 12/09/18 10:44 12/09/18 10:44 Course - Vital Signs Vital signs: Temp Pulse Resp BP Pulse Ox 97.9 F 100 16 136/58 H 97 12/09/18 10:44 12/09/18 10:44 12/09/18 10:44 12/09/18 10:44 12/09/18 10:44 Doctor's Discharge - Discharge Referrals: DELL TAMAYO MD [Primary Care Provider] - Follow up as needed
--- NOTE | 2018-12-09 11:35 | RADIOLOGY REPORT (SQ) ---
EXAM DESCRIPTION: FOOT RIGHT COMPLETE COMPLETED DATE/TIME: 12/09/2018 11:23 am REASON FOR STUDY: fall multiple injuries COMPARISON: None. NUMBER OF VIEWS: Three views. TECHNIQUE: AP, lateral and oblique radiographic images acquired of the right foot. LIMITATIONS: None. FINDINGS: MINERALIZATION: Normal. BONES: No acute fracture or dislocation. No worrisome bone lesions. JOINTS: No effusions. SOFT TISSUES: No soft tissue swelling. No foreign body. OTHER: No other significant finding. IMPRESSION: NEGATIVE STUDY OF THE RIGHT FOOT. NO RADIOGRAPHIC EVIDENCE OF ACUTE INJURY. TECHNICAL DOCUMENTATION: JOB ID: [id number] [employer]- All Rights Reserved Reading location - IP/workstation name: [email or web address]
--- NOTE | 2018-12-09 11:35 | RADIOLOGY REPORT (SQ) ---
EXAM DESCRIPTION: ANKLE RIGHT COMPLETE COMPLETED DATE/TIME: 12/09/2018 11:23 am REASON FOR STUDY: fall multiple injuries COMPARISON: None. NUMBER OF VIEWS: Three views. TECHNIQUE: AP, lateral, and oblique radiographic images acquired of the right ankle. LIMITATIONS: None. FINDINGS: MINERALIZATION: Normal. BONES: No acute fracture or dislocation. No worrisome bone lesions. JOINTS: No effusions. SOFT TISSUES: No soft tissue swelling. No foreign body. OTHER: No other significant finding. IMPRESSION: NEGATIVE STUDY OF THE RIGHT ANKLE. NO RADIOGRAPHIC EVIDENCE OF ACUTE INJURY. TECHNICAL DOCUMENTATION: JOB ID: [id number] [employer]- All Rights Reserved Reading location - IP/workstation name: [email or web address]
--- NOTE | 2018-12-09 11:36 | RADIOLOGY REPORT (SQ) ---
EXAM DESCRIPTION: SACRUM AND COCCYX COMPLETED DATE/TIME: 12/09/2018 11:23 am REASON FOR STUDY: fall multiple injuries COMPARISON: None. NUMBER OF VIEWS: Three views. TECHNIQUE: AP, lateral, and tilt views of the sacrum and coccyx. LIMITATIONS: None. FINDINGS: MINERALIZATION: Normal. BONES: No acute fracture or dislocation. No worrisome bone lesions. SOFT TISSUES: No soft tissue swelling. No foreign body. OTHER: No other significant finding. IMPRESSION: NEGATIVE STUDY OF THE SACRUM AND COCCYX. TECHNICAL DOCUMENTATION: JOB ID: [id number] [employer]- All Rights Reserved Reading location - IP/workstation name: [email or web address]
--- NOTE | 2018-12-09 11:38 | RADIOLOGY REPORT (SQ) ---
EXAM DESCRIPTION: CT CERVICAL SPINE WITHOUT COMPLETED DATE/TIME: 12/09/2018 11:27 am REASON FOR STUDY: fall multiple injuries COMPARISON: None. TECHNIQUE: Axial images acquired through the cervical spine without intravenous contrast. Images re viewed with lung, soft tissue and bone windows. Reconstructed coronal and sagittal MPR images review ed. Images stored on PACS. All CT scanners at this facility use dose modulation, iterative reconstruction, and/or weight based d osing when appropriate to reduce radiation dose to as low as reasonably achievable (ALARA). [facility]: Dose Right [facility]: CareDose [facility]: Dose Right [facility]: Teradose 4D [facility]: [employer] RADIATION DOSE: CT Rad equipment meets quality standard of care and radiation dose reduction techniq ues were employed. CTDIvol: 15.4 mGy. DLP: 305 mGy-cm. mGy. LIMITATIONS: None. FINDINGS: ALIGNMENT: Minimal anterolisthesis of C4 on C5. MINERALIZATION: Normal. VERTEBRAL BODIES: No fractures or dislocation. DISCS: Disc spaces are narrowed at C5-6 and C6-7 with marginal osteophytes. FACETS, LATERAL MASSES, POSTERIOR ELEMENTS: There are hypertrophic facet changes in the mid cervical spine. HARDWARE: None in the spine. VISUALIZED RIBS: No fractures. LUNG APICES AND SOFT TISSUES: No significant or acute findings. OTHER: No other significant finding. IMPRESSION: Minimal anterolisthesis of C4 on C5. Degenerative disc disease, spondylosis, and facet arthropathy. TECHNICAL DOCUMENTATION: JOB ID: [id number] Quality ID # 436: Final reports with documentation of one or more dose reduction techniques (e.g., Au tomated exposure control, adjustment of the mA and/or kV according to patient size, use of iterative reconstruction technique) 2010 [employer]- All Rights Reserved Reading location - IP/workstation name: [email or web address]
--- NOTE | 2018-12-09 11:40 | RADIOLOGY REPORT (SQ) ---
EXAM DESCRIPTION: CT HEAD WITHOUT COMPLETED DATE/TIME: 12/09/2018 11:27 am REASON FOR STUDY: fall multiple injuries COMPARISON: None. TECHNIQUE: Axial images acquired through the brain without intravenous contrast. Images reviewed wi th bone, brain and subdural windows. Additional sagittal and coronal reconstructions were generated. Images stored on PACS. All CT scanners at this facility use dose modulation, iterative reconstruction, and/or weight based d osing when appropriate to reduce radiation dose to as low as reasonably achievable (ALARA). [facility]: Dose Right [facility]: CareDose [facility]: Dose Right [facility]: Teradose 4D [facility]: [employer] RADIATION DOSE: CT Rad equipment meets quality standard of care and radiation dose reduction techniq ues were employed. CTDIvol: 53.2 mGy. DLP: 1070 mGy-cm. mGy. LIMITATIONS: None. FINDINGS: VENTRICLES: Normal size and contour. CEREBRUM: No masses. No hemorrhage. No midline shift. No evidence for acute infarction. Normal gra y/white matter differentiation. No areas of low density in the white matter. CEREBELLUM: No masses. No hemorrhage. No alteration of density. No evidence for acute infarction. EXTRAAXIAL SPACES: No fluid collections. No masses. ORBITS AND GLOBE: No intra- or extraconal masses. Normal contour of globe without masses. CALVARIUM: No fracture. PARANASAL SINUSES: No fluid or mucosal thickening. SOFT TISSUES: No mass or hematoma. OTHER: No other significant finding. IMPRESSION: NORMAL BRAIN CT WITHOUT CONTRAST. EVIDENCE OF ACUTE STROKE: NO. COMMENT: Quality ID # 436: Final reports with documentation of one or more dose reduction techniques (e.g., Automated exposure control, adjustment of the mA and/or kV according to patient size, use of iterative reconstruction technique) TECHNICAL DOCUMENTATION: JOB ID: [id number]- All Rights Reserved Reading location - IP/workstation name: [email or web address]
--- NOTE | 2018-12-09 12:11 | ER Document Report ---
ED General - General Chief Complaint: Fall Injury Stated Complaint: FALL/BACK PAIN, ANKLE PAIN,ARM PAIN Time Seen by Provider: 12/09/18 10:51 Primary Care Provider: DELL TAMAYO MD [ACTIVE STAFF] - Follow up as needed Mode of Arrival: Wheelchair Notes: Very pleasant 73-year-old female presents the emergency department after sustaining multiple injuries status post fall. She was at the orthopedist yesterday and she received a joint injection in her right hip for nerve pain. Everything was okay but then shortly after her leg went completely numb and she cannot feel her leg at all. She slipped and fell off of the bed a couple of times the prior day and then upon presentation today she started getting feeling back in her leg but she was walking down some steps outside and fell. She denies hitting her head but her worst complaint is tailbone pain with right ankle and right foot pain. She denies hitting her head or LOC. Patient is not on anticoagulation. No fevers or recent illness, no shortness of breath or chest pain, no other complaints. TRAVEL OUTSIDE OF THE [place] IN LAST 30 DAYS: No - Related Data Allergies/Adverse Reactions: morphine Allergy (Verified 12/09/18 10:41) Past Medical History - General Information source: Patient - Social History Smoking Status: Current Every Day Smoker Chew tobacco use (# tins/day): No Frequency of alcohol use: Occasional Drug Abuse: None Family History: Reviewed & Not Pertinent Patient has suicidal ideation: No Patient has homicidal ideation: No - Past Medical History Cardiac Medical History: Reports: Hx Hypercholesterolemia, Hx Hypertension Endocrine Medical History: Reports: Hx Diabetes Mellitus Type 2 Renal/ Medical History: Reports: Hx Kidney Stones. Denies: Hx Peritoneal Dialysis Malignancy Medical History: Reports: Hx Ovarian Cancer Psychiatric Medical History: Denies: Hx Depression Past Surgical History: Reports: Hx Abdominal Surgery - urostomy and colostomy, Hx Colostomy, Hx Gynecologic Surgery - ovarian, Hx Hysterectomy, Hx Kidney (Renal Surgery), Hx Orthopedic Surgery - right hip replacement, left shoulder, Other - Bladder removal with urostomy - Immunizations Immunizations up to date: Yes Hx Diphtheria, Pertussis, Tetanus Vaccination: Yes Review of Systems - Review of Systems Constitutional: See HPI EENT: No symptoms reported Cardiovascular: See HPI Respiratory: See HPI Gastrointestinal: No symptoms reported Genitourinary: No symptoms reported Female Genitourinary: No symptoms reported Musculoskeletal: See HPI Skin: No symptoms reported Hematologic/Lymphatic: No symptoms reported Neurological/Psychological: No symptoms reported Physical Exam - Vital signs Vitals: Temp Pulse Resp BP Pulse Ox 97.9 F 100 16 136/58 H 97 12/09/18 10:44 12/09/18 10:44 12/09/18 10:44 12/09/18 10:44 12/09/18 10:44 - Notes Notes: PHYSICAL EXAMINATION: Reviewed vital signs and charting by RN GENERAL: Alert, interacts well. No acute distress. HEAD: Normocephalic, atraumatic. EYES: Pupils equal, round. Extraocular movements intact. ENT: Oral mucosa moist, tongue midline. NECK: Full range of motion. Supple. Trachea midline. LUNGS: Clear to auscultation bilaterally, no wheezes, rales, or rhonchi. No re spiratory distress. HEART: Regular rate and rhythm. No murmur ABDOMEN: soft, non-tender. No distention. Bowel sounds present EXTREMITIES: Moves all 4 extremities spontaneously. Edema of the right foot and ankle with ecchymosis PSYCH: Normal affect, normal mood. SKIN: Warm, dry, normal turgor. No rashes or lesions noted. Course - Re-evaluation Re-evalutation: 12/12/18 14:22 Imaging negative for any fractures or dislocation. Plan to put patient in an Telly wrap in her right foot and have her follow-up with primary provider. P atient declined crutches. Although patient hit her head she got a CT which was negative for any acute intracranial pathology or fracture. At this time she is stable for discharge and she will follow-up with the orthopedist. - Vital Signs Vital signs: Temp Pulse Resp BP Pulse Ox 98.0 F 88 16 133/60 H 100 12/09/18 13:00 12/09/18 13:00 12/09/18 13:00 12/09/18 13:00 12/09/18 13:00 Discharge - Discharge Clinical Impression: Right ankle injury Qualifiers: Encounter type: initial encounter Qualified Code(s): S99.911A - Unspecified injury of right ankle, initial encounter Tailbone injury Qualifiers: Encounter type: initial encounter Qualified Code(s): S39.92XA - Unspecified injury of lower back, initial encounter Injury of right elbow Qualifiers: Encounter type: initial encounter Qualified Code(s): S59.901A - Unspecified injury of right elbow, initial encounter Condition: Good Disposition: HOME, SELF-CARE Additional Instructions: You were seen in the emergency department this morning for a fall. Fortunately, x-rays did not show any broken bones and your head CT did not show evidence of a skull fracture or bleed of the brain. You can expect to be very sore for the next several days, especially your tailbone as you probably bruised it. We have wrapped your ankle in an Telly wrap and recommend that you use crutches or a walker if you have one. Please call Dr. Chavez for further guidance if you are still having persistent numbness in your leg. Your exam was overall reassuring, though and there is no concern for any neurologic compromise. Please return to the emergency department if you have worsening pain, you have swelling of your entire right leg, it becomes red and warm, you develop fevers, you develop acute shortness of breath or chest pain, because these can be symptoms of a blood clot. Also, please return to the emergency department if you have any other concerns. Referrals: DELL TAMAYO MD [ACTIVE STAFF] - Follow up as needed
[2018-12-09 13:02] VITALS: BP 133/60
== END 2018-12-09 13:02 | disposition home or self-care (01) ==
LOC: ER 10:31
DX: S39.92XA Unspecified injury of lower back, initial encounter (principal); S99.911A Unspecified injury of right ankle, initial encounter; S59.901A Unspecified injury of right elbow, initial encounter; M25.551 Pain in right hip; W10.9XXA Fall (on) (from) unspecified stairs and steps, initial encounter; F17.200 Nicotine dependence, unspecified, uncomplicated; E78.00 Pure hypercholesterolemia, unspecified; I10 Essential (primary) hypertension; E11.9 Type 2 diabetes mellitus without complications; Z88.6 Allergy status to analgesic agent; Z87.442 Personal history of urinary calculi; Z85.43 Personal history of malignant neoplasm of ovary; Z90.710 Acquired absence of both cervix and uterus; Z96.641 Presence of right artificial hip joint
CPT/HCPCS: 70450; 72125; 72220; 99284

== ENCOUNTER 2019-03-09 08:56 | Emergency (ER) | payer MEDICARE ==
--- NOTE | 2019-03-09 09:34 | ER Document Report ---
ED Medical Screen (RME) - General Chief Complaint: Abdominal Pain Stated Complaint: ABDOMINAL PAIN Time Seen by Provider: 03/09/19 09:26 Primary Care Provider: REYNALDO GATES PA-C [Primary Care Provider] - Follow up as needed Notes: Patient is a 73-year-old female with a history of cancer who presents to the emergency department with a chief complaint of abdominal pain. Patient reports she does have a colostomy bag as well as a urostomy bag from cancer 3 years ago. Patient reports that her urostomy stoma site is a very uncomfortable and she is having pain. Patient reports she does have a history of UTI and sepsis. Patient reports a foul odor to the urine. Patient reports over the past few days she is felt weak, had chills, and had a 101 fever at home. Patient has been taking Tylenol for her fever. Patient reports nausea and a decreased appetite. Patient reports she is also had issues with constipation. Patient reports she has been taking laxatives with no relief. Patient states she did have a bowel movement yesterday but it was very small and hard. TRAVEL OUTSIDE OF THE [place] IN LAST 30 DAYS: No - Related Data Allergies/Adverse Reactions: morphine Allergy (Verified 03/09/19 08:57) Past Medical History - Past Medical History Cardiac Medical History: Reports: Hx Hypercholesterolemia, Hx Hypertension Endocrine Medical History: Reports: Hx Diabetes Mellitus Type 2 Renal/ Medical History: Reports: Hx Kidney Stones. Denies: Hx Peritoneal Dialysis Malignancy Medical History: Reports: Hx Ovarian Cancer Psychiatric Medical History: Denies: Hx Depression Past Surgical History: Reports: Hx Abdominal Surgery - urostomy and colostomy, Hx Colostomy, Hx Gynecologic Surgery - ovarian, Hx Hysterectomy, Hx Kidney (Renal Surgery), Hx Orthopedic Surgery - right hip replacement, left shoulder, Other - Bladder removal with urostomy - Immunizations Immunizations up to date: Yes Hx Diphtheria, Pertussis, Tetanus Vaccination: Yes History of Influenza Vaccine for 04/2017 - 09/2017 Season: Yes Influenza Administration Date for 04/2017 - 09/2017 Season: 04/07/17 Physical Exam - Vital signs Vitals: Temp Pulse Resp BP Pulse Ox 98.7 F 107 H 16 124/75 97 03/09/19 08:59 03/09/19 08:59 03/09/19 08:59 03/09/19 08:59 03/09/19 08:59 Interpretation: Tachycardic - Abdominal Inspection: Normal Distension: No distension Bowel sounds: Hypoactive Organomegaly: No organomegaly Notes: Urostomy bag to right lower abdomen, colostomy bag to left lower abdomen. Course - Re-evaluation Re-evalutation: 03/09/19 09:34 I have greeted and performed a rapid initial assessment of this patient. A comprehensive ED assessment and evaluation of the patient, analysis of test results and completion of the medical decision making process will be conducted by additional ED providers. - Vital Signs Vital signs: Temp Pulse Resp BP Pulse Ox 98.7 F 107 H 16 124/75 97 03/09/19 08:59 03/09/19 08:59 03/09/19 08:59 03/09/19 08:59 03/09/19 08:59 Doctor's Discharge - Discharge Referrals: REYNALDO GATES PA-C [Primary Care Provider] - Follow up as needed
[2019-03-09 09:55] LABS: ABSOLUTE BASOPHILS # (AUTO) 0.1 10^3/uL (0.0-0.2); ABSOLUTE EOSINOPHILS # (AUTO) 0.1 10^3/uL (0.0-0.6); ABSOLUTE LYMPHOCYTES (AUTO) 1.1 10^3/uL (0.5-4.7); ABSOLUTE MONOCYTES (AUTO) 0.5 10^3/uL (0.1-1.4); ABSOLUTE NEUT (AUTO) 4.7 10^3/uL (1.7-8.2); BASOPHILS % (AUTO) 0.8 % (0-2); EOSINOPHILS % (AUTO) 1.4 % (0-6); HEMOGLOBIN 11.8 g/dL (12.0-15.5); LYMPHOCYTES % (AUTO) 16.7 % (13-45); MEAN CORPUSCULAR HEMOGLOBIN 28.3 pg (27.0-33.4); MEAN CORPUSCULAR HGB CONC 32.9 g/dL (32.0-36.0); MEAN CORPUSCULAR VOLUME 86 fl (80-97); MONOCYTES % (AUTO) 8.2 % (3-13); PLATELET COUNT 170 10^3/uL (150-450); RED BLOOD COUNT 4.18 10^6/uL (3.72-5.28); RED CELL DISTRIBUTION WIDTH 15.5 % (11.5-14.0); SEGMENTED NEUTROPHILS % (AUTO) 72.9 % (42-78); TOTAL CELLS COUNTED % (AUTO) 100 %; WHITE BLOOD COUNT 6.4 10^3/uL (4.0-10.5)
[2019-03-09 10:11] LABS: ALBUMIN 3.9 g/dL (3.5-5.0); ALKALINE PHOSPHATASE 61 U/L (38-126); ANION GAP 11 (5-19); ASPARTATE AMINO TRANSFERASE 40 U/L (14-36); BILIRUBIN,DIRECT 0.4 mg/dL (0.0-0.4); BILIRUBIN,TOTAL 0.8 mg/dL (0.2-1.3); BLOOD UREA NITROGEN 12 mg/dL (7-20); CALCIUM 9.5 mg/dL (8.4-10.2); CARBON DIOXIDE 25 mmol/L (22-30); CHLORIDE 98 mmol/L (98-107); GLUCOSE 181 mg/dL (75-110); POTASSIUM 4.5 mmol/L (3.6-5.0); TOTAL PROTEIN 6.8 g/dL (6.3-8.2)
--- NOTE | 2019-03-09 10:26 | ER Document Report ---
ED General - General Chief Complaint: Abdominal Pain Stated Complaint: ABDOMINAL PAIN Time Seen by Provider: 03/09/19 09:26 Primary Care Provider: REYNALDO GATES PA-C [Primary Care Provider] - Follow up as needed Notes: 73-year-old female presents with abdominal pain, periumbilical constant since yesterday with decreased stoma output. She had a total pelvic exenteration, has a urostomy and ileostomy. She states that the output from the urostomy looks good is not cloudy or dark. She has had urosepsis before. She does not have vomiting but is nauseous today. TRAVEL OUTSIDE OF THE [place] IN LAST 30 DAYS: No - Related Data Allergies/Adverse Reactions: morphine Allergy (Verified 03/09/19 08:57) Past Medical History - Social History Smoking Status: Never Smoker Frequency of alcohol use: None Drug Abuse: None Family History: Reviewed & Not Pertinent Patient has suicidal ideation: No Patient has homicidal ideation: No - Past Medical History Cardiac Medical History: Reports: Hx Hypercholesterolemia, Hx Hypertension Endocrine Medical History: Reports: Hx Diabetes Mellitus Type 2 Renal/ Medical History: Reports: Hx Kidney Stones. Denies: Hx Peritoneal Di alysis Malignancy Medical History: Reports: Hx Ovarian Cancer Psychiatric Medical History: Denies: Hx Depression Past Surgical History: Reports: Hx Abdominal Surgery - urostomy and colostomy, Hx Colostomy, Hx Gynecologic Surgery - ovarian, Hx Hysterectomy, Hx Kidney (Renal Surgery), Hx Orthopedic Surgery - right hip replacement, left shoulder, Other - Bladder removal with urostomy - Immunizations Immunizations up to date: Yes Hx Diphtheria, Pertussis, Tetanus Vaccination: Yes Review of Systems - Review of Systems Notes: REVIEW OF SYSTEMS GEN: Denies fever, chills, weight loss ENT: Denies sore throat, nasal discharge, ear pain EYES: Denies blurry vision, eye pain, discharge CV: Denies chest pain, palpitations, edema RESP: Denies cough, shortness of breath, wheezing GI: No pain decreased ostomy output MSK: Denies joint pain/swelling, edema, SKIN: Denies rash, skin lesions LYMPH: Denies swollen glands/lymph nodes NEURO: Denies headache, focal weakness or numbness, dizziness PSYCH: Denies depression, suicidal or homicidal ideation PHYSICAL EXAMINATION General: No acute distress, well-nourished Head: Atraumatic, normocephalic ENT: Mouth normal, oropharynx moist, no exudates or tonsillar enlargement Eyes: Conjunctiva normal, pupils equal, lids normal Neck: No JVD, supple, no guarding CVS: Normal rate, regular rhythm, no murmurs Resp: No resp distress, equal and normal breath sounds bilaterally GI: Lower quadrant urostomy looks clean dry intact with yellow urine slightly cloudy. Left lower quadrants ileostomy is healthy but there is minimal output in the bag. The abdomen is slightly firm and distended. Ext: No deformities, no edema, normal range of motion in upper and lower ext Back: No CVA or midline TTP Skin: No rash, warm Lymphatic: No lymphadeopathy noted Neuro: Awake, alert. Face symmetric. GCS 15. Physical Exam - Vital signs Vitals: Temp Pulse Resp BP Pulse Ox 98.7 F 107 H 16 124/75 97 03/09/19 08:59 03/09/19 08:59 03/09/19 08:59 03/09/19 08:59 03/09/19 08:59 Course - Re-evaluation Re-evalutation: 03/09/19 10:25 Abdominal pain with a history of pelvic surgery urostomy and ileostomy. She has had decreased output as well constipation versus obstruction. Doubt UTI. Vital signs do not suggest sepsis. 03/09/19 14:[address] does not show obstruction or other infection. Her labs are also normal. We did very long discussion during which expressed that this is either constipation very early bowel obstruction or less likely urosepsis. Her urine is from an ostomy and will always look like a UTI although she has no CVA tenderness or fever. We did not agree to start antibiotics. We will do MiraLAX. She will return for any worsening symptoms. Insert discharge 03/09/19 14:20 I have discussed with the patient there likely diagnosis, aftercare plan, follow-up plans and my usual and customary return precautions. They verbalized understanding of this. - Vital Signs Vital signs: Temp Pulse Resp BP Pulse Ox 99.3 F 107 H 19 127/61 H 97 03/09/19 12:44 03/09/19 08:59 03/09/19 12:44 03/09/19 12:44 03/09/19 12:44 - Laboratory Result Diagrams: 03/09/19 09:45 03/09/19 09:45 Laboratory results interpreted by me: 03/09/19 03/09/19 03/09/19 09:45 09:45 11:46 Hgb 11.8 L RDW 15.5 H Sodium 133.5 L Glucose 181 H AST 40 H Urine Nitrite POSITIVE H Ur Leukocyte Esterase MODERATE H - Diagnostic Test Radiology reviewed: Image reviewed, Reports reviewed Discharge - Discharge Clinical Impression: Abdominal pain Qualifiers: Abdominal location: generalized Qualified Code(s): R10.84 - Generalized abdominal pain Condition: Good Disposition: HOME, SELF-CARE Instructions: Abdominal Pain ([facility]) Additional Instructions: As we discussed, we did not find a specific cause of your belly pain. He could be constipation with beginning of a bowel obstructions if it does get worse restart vomiting is important to return to the ER. Your urine did not seem infected either but we did send a culture and you may be getting a phone call. If you get a fever get worse in any way please return the emergency room. Otherwise follow-up with your regular doctor in 1 week. Please also call your GI. Referrals: REYNALDO GATES PA-C [Primary Care Provider] - Follow up as needed
--- NOTE | 2019-03-09 11:08 | RADIOLOGY REPORT (SQ) ---
EXAM DESCRIPTION: CT ABD/PELVIS WITH IV ONLY COMPLETED DATE/TIME: 03/09/2019 10:50 am REASON FOR STUDY: ovarian CA, abd pain COMPARISON: 11/04/2018. TECHNIQUE: CT scan of the abdomen and pelvis performed using helical scanning technique with dynamic intravenous contrast injection. No oral contrast. Images reviewed with lung, soft tissue, and bone windows. Reconstructed coronal and sagittal MPR images reviewed. Delayed images for evaluation of the urinary system also acquired. All images stored on PACS. All CT scanners at this facility use dose modulation, iterative reconstruction, and/or weight based d osing when appropriate to reduce radiation dose to as low as reasonably achievable (ALARA). [facility]: Dose Right [facility]: CareDose [facility]: Dose Right [facility]: Teradose 4D [facility]: [employer] CONTRAST TYPE AND DOSE: contrast/concentration: Isovue 350.00 mg/ml; Total Contrast Delivered: 75.0 ml; Total Saline Delivered: 67.0 ml RENAL FUNCTION: BUN 12 creatinine 0.74. RADIATION DOSE: CT Rad equipment meets quality standard of care and radiation dose reduction techniq ues were employed. CTDIvol: 7.8 - 11.0 mGy. DLP: 1035 mGy-cm.. LIMITATIONS: None. FINDINGS: LOWER CHEST: Area of focal infiltrate in the left lung, not completely imaged. Scattered atelectasis/ scarring in the lung bases. LIVER: Normal size. No masses. No dilated ducts. SPLEEN: Normal size. No focal lesions. PANCREAS: No masses. No significant calcifications. No adjacent inflammation or peripancreatic fluid collections. Pancreatic duct not dilated. GALLBLADDER: No identified stones by CT criteria. No inflammatory changes to suggest cholecystitis. ADRENAL GLANDS: No significant masses or asymmetry. RIGHT KIDNEY AND URETER: Small cortical cysts. No solid masses. No significant calcifications. N o hydronephrosis or hydroureter. LEFT KIDNEY AND URETER: Small cortical cysts. No solid masses. No significant calcifications. No hydronephrosis or hydroureter. AORTA AND VESSELS: No aneurysm. No dissection. Renal arteries, SMA, celiac without stenosis. RETROPERITONEUM: No retroperitoneal adenopathy, hemorrhage or masses. BOWEL AND PERITONEAL CAVITY: Previous resection of the rectosigmoid colon with left lower quadrant co lostomy. A portion of colon is herniated through the colostomy. No masses or inflammatory changes. No free fluid or peritoneal masses. APPENDIX: Normal. PELVIS: No mass. No free fluid. Previous cystectomy with ureteral diversion. ABDOMINAL WALL: No masses. Left lower quadrant colostomy with a portion of colon herniated through t he colostomy. Right lower quadrant diverting ileostomy with bladder reconstruction. BONES: No significant or acute findings. Hardware in the right hip. OTHER: No other significant finding. IMPRESSION: 1. FOCAL INFILTRATE IN THE LEFT LUNG, NOT COMPLETELY IMAGED ON THE CURRENT STUDY. 2. SURGICAL CHANGES DESCRIBED WITH BILATERAL LOWER ABDOMINAL OSTOMIES. A PORTION OF COLON IS AXEL IATED THROUGH THE LEFT LOWER QUADRANT COLOSTOMY. NO MECHANICAL OBSTRUCTION. NO CHANGE FROM THE PRIO R STUDY. 3. SMALL CORTICAL CYSTS IN BOTH KIDNEYS. 4. NO OTHER SIGNIFICANT OR ACUTE FINDING IN THE ABDOMEN OR PELVIS ON CT SCAN WITH IV CONTRAST. TECHNICAL DOCUMENTATION: JOB ID: [id number] Quality ID # [id number]: Final reports with documentation of one or more dose reduction techniques (e.g., Au tomated exposure control, adjustment of the mA and/or kV according to patient size, use of iterative reconstruction technique) 2010 [employer]- All Rights Reserved Reading location - IP/workstation name: [email or web address]
[2019-03-09 12:05] LABS: APPEARANCE,URINE CLEAR; BILIRUBIN,URINE NEGATIVE (NEGATIVE); COLOR,URINE YELLOW; GLUCOSE, URINE NEGATIVE (NEGATIVE); KETONES,URINE NEGATIVE (NEGATIVE); LEUKOCYTE ESTERASE,URINE MODERATE (NEGATIVE); NITRITE,URINE POSITIVE (NEGATIVE); PROTEIN,URINE NEGATIVE (NEGATIVE); UROBILINOGEN,URINE NEGATIVE mg/dL (<2.0)
[2019-03-09 12:53] VITALS: BP 127/61
== END 2019-03-09 13:07 | disposition home or self-care (01) ==
LOC: ER 08:56
DX: R10.84 Generalized abdominal pain (principal); R11.0 Nausea; I10 Essential (primary) hypertension; E11.9 Type 2 diabetes mellitus without complications
CPT/HCPCS: 99284; 36415; 83690; 85025; 80076; 80048; 81001; 74177; J1642

== ENCOUNTER 2019-03-25 09:55 | Observation (INO) | payer MEDICARE ==
[2019-03-25] MEDS ORDERED: ASPIRIN 81 MG TABLET, CHEWABLE PO ONE (10:22)
--- NOTE | 2019-03-25 10:24 | ER Document Report ---
ED Medical Screen (RME) - General Chief Complaint: Chest Pain Stated Complaint: CHEST PAIN Time Seen by Provider: 03/25/19 10:16 Primary Care Provider: REYNALDO GATES PA-C [Primary Care Provider] - Follow up as needed TRAVEL OUTSIDE OF THE [place] IN LAST 30 DAYS: No - HPI Notes: 03/25/19 10:22 73-year-old female to the emergency department with complaints of left-sided chest pain that radiates down into her left arm that began yesterday upon awakening. She states that she feels like she cannot get a good deep breath and feels like she then needs to yawn or really expand her lungs in order to feel like she can breathe. She states that she also notices that she has a little bit of exertional shortness of breath as well. Admits to bilateral calf "spasms". Of note she does have a history of ovarian cancer and is on oral chemotherapy. She has been on this oral chemotherapy for 3 years. She is never had a clot in her chest or in her legs. She has never had a heart attack. She does not currently smoke. Performed a medical screening exam on the patient. I have gone ahead and ordered labs as well as EKG and chest x-ray. Gone ahead and ordered 324 chewable aspirin. We will have her followed and further managed by main side provider. - Related Data Allergies/Adverse Reactions: morphine Allergy (Verified 03/25/19 09:59) Past Medical History - Social History Frequency of alcohol use: None Drug Abuse: None - Past Medical History Cardiac Medical History: Reports: Hx Hypercholesterolemia, Hx Hypertension Endocrine Medical History: Reports: Hx Diabetes Mellitus Type 2 Renal/ Medical History: Reports: Hx Kidney Stones. Denies: Hx Peritoneal Dialysis Malignancy Medical History: Reports: Hx Ovarian Cancer Psychiatric Medical History: Denies: Hx Depression Past Surgical History: Reports: Hx Abdominal Surgery - urostomy and colostomy, Hx Colostomy, Hx Gynecologic Surgery - ovarian, Hx Hysterectomy, Hx Kidney (Renal Surgery), Hx Orthopedic Surgery - right hip replacement, left shoulder, Other - Bladder removal with urostomy - Immunizations Immunizations up to date: Yes Hx Diphtheria, Pertussis, Tetanus Vaccination: Yes History of Influenza Vaccine for 04/2017 - 09/2017 Season: Yes Influenza Administration Date for 04/2017 - 09/2017 Season: 04/07/17 Physical Exam - Vital signs Vitals: Temp Pulse Resp BP Pulse Ox 97.4 F 88 18 134/51 H 96 03/25/19 10:06 03/25/19 10:06 03/25/19 10:06 03/25/19 10:06 03/25/19 10:06 Course - Vital Signs Vital signs: Temp Pulse Resp BP Pulse Ox 97.4 F 88 18 134/51 H 96 03/25/19 10:06 03/25/19 10:06 03/25/19 10:06 03/25/19 10:06 03/25/19 10:06 Doctor's Discharge - Discharge Referrals: REYNALDO GATES PA-C [Primary Care Provider] - Follow up as needed
--- NOTE | 2019-03-25 10:58 | RADIOLOGY REPORT (SQ) ---
EXAM DESCRIPTION: CHEST SINGLE VIEW COMPLETED DATE/TIME: 03/25/2019 10:35 am REASON FOR STUDY: chest pain, SOB COMPARISON: None. EXAM PARAMETERS: NUMBER OF VIEWS: One view. TECHNIQUE: Single frontal radiographic view of the chest acquired. RADIATION DOSE: NA LIMITATIONS: None. FINDINGS: LUNGS AND PLEURA: No opacities, masses or pneumothorax. No pleural effusion. MEDIASTINUM AND HILAR STRUCTURES: No masses. Contour normal. HEART AND VASCULAR STRUCTURES: Heart normal in size. Normal vasculature. BONES: No acute findings. HARDWARE: Injection port on the right. OTHER: No other significant finding. IMPRESSION: NO ACUTE RADIOGRAPHIC FINDING IN THE CHEST. TECHNICAL DOCUMENTATION: JOB ID: [id number] [employer]- All Rights Reserved Reading location - IP/workstation name: [email or web address]
[2019-03-25 11:19] LABS: ABSOLUTE BASOPHILS # (AUTO) 0.1 10^3/uL (0.0-0.2); ABSOLUTE EOSINOPHILS # (AUTO) 0.1 10^3/uL (0.0-0.6); ABSOLUTE LYMPHOCYTES (AUTO) 1.1 10^3/uL (0.5-4.7); ABSOLUTE MONOCYTES (AUTO) 0.4 10^3/uL (0.1-1.4); BASOPHILS % (AUTO) 1.3 % (0-2); EOSINOPHILS % (AUTO) 0.9 % (0-6); HEMATOCRIT 34.1 % (36.0-47.0); HEMOGLOBIN 11.3 g/dL (12.0-15.5); LYMPHOCYTES % (AUTO) 19.2 % (13-45); MEAN CORPUSCULAR HEMOGLOBIN 28.2 pg (27.0-33.4); MEAN CORPUSCULAR HGB CONC 33.3 g/dL (32.0-36.0); MEAN CORPUSCULAR VOLUME 85 fl (80-97); PLATELET COUNT 328 10^3/uL (150-450); RED BLOOD COUNT 4.02 10^6/uL (3.72-5.28); RED CELL DISTRIBUTION WIDTH 15.1 % (11.5-14.0); SEGMENTED NEUTROPHILS % (AUTO) 71.6 % (42-78); TOTAL CELLS COUNTED % (AUTO) 100 %; WHITE BLOOD COUNT 5.5 10^3/uL (4.0-10.5)
[2019-03-25 11:37] LABS: ALBUMIN 4.2 g/dL (3.5-5.0); ALKALINE PHOSPHATASE 59 U/L (38-126); ANION GAP 9 (5-19); ASPARTATE AMINO TRANSFERASE 134 U/L (14-36); BILIRUBIN,DIRECT 0.2 mg/dL (0.0-0.4); BILIRUBIN,TOTAL 0.5 mg/dL (0.2-1.3); BLOOD UREA NITROGEN 11 mg/dL (7-20); CARBON DIOXIDE 27 mmol/L (22-30); CHLORIDE 100 mmol/L (98-107); GLUCOSE 136 mg/dL (75-110); POTASSIUM 4.2 mmol/L (3.6-5.0); TOTAL PROTEIN 7.7 g/dL (6.3-8.2)
[2019-03-25 11:48] LABS: NT PRO BNP 158 pg/mL (5-900)
[2019-03-25 11:49] LABS: TROPONIN I < 0.012 ng/mL
--- NOTE | 2019-03-25 12:03 | RADIOLOGY REPORT (SQ) ---
EXAM DESCRIPTION: CTA CHEST COMPLETED DATE/TIME: 03/25/2019 11:47 am REASON FOR STUDY: cancer/cp/sob COMPARISON: 06/16/2018 TECHNIQUE: CT scan of the chest performed using helical scanning technique with dynamic intravenous contrast injection. Images reviewed with lung, soft tissue and bone windows. Reconstructed coronal and sagittal MPR images reviewed. Additional 3 dimensional post-processing performed to develop Maximal Intensity Projection images (NH P). All images stored on PACS. All CT scanners at this facility use dose modulation, iterative reconstruction, and/or weight based d osing when appropriate to reduce radiation dose to as low as reasonably achievable (ALARA). [facility]: Dose Right [facility]: CareDose [facility]: Dose Right [facility]: Teradose 4D [facility]: [employer] CONTRAST TYPE AND DOSE: contrast/concentration: Isovue 350.00 mg/ml; Total Contrast Delivered: 37.2 ml; Total Saline Delivered: 40.0 ml Contrast bolus adequate for pulmonary arteries and aorta. RENAL FUNCTION: BUN 12 creatinine 0.74 RADIATION DOSE: CT Rad equipment meets quality standard of care and radiation dose reduction techniq ues were employed. CTDIvol: 3.3 - 14.3 mGy. DLP: 551 mGy-cm. . LIMITATIONS: None. FINDINGS: LUNGS AND PLEURA: No masses, infiltrates, or pneumothorax. No pleural effusions or pleura l calcifications. AORTA AND GREAT VESSELS: No aneurysm. Contrast bolus not optimized for the aorta. HEART: No pericardial effusion. No significant coronary artery calcifications. PULMONARY ARTERIES: No emboli visualized in the main pulmonary arteries or the segmental branches. HILAR AND MEDIASTINAL STRUCTURES: No identified masses or abnormal nodes. HARDWARE: Injection port on the right. UPPER ABDOMEN: No significant findings. Limited exam. THYROID AND OTHER SOFT TISSUES: No masses. No adenopathy. BONES: No acute or significant finding. 3D MIPS: Confirm above findings. OTHER: No other significant finding. IMPRESSION: There are no pulmonary emboli. There is no aortic aneurysm or dissection. COMMENT: Quality ID # [id number]: Final reports with documentation of one or more dose reduction techniques (e.g., Automated exposure control, adjustment of the mA and/or kV according to patient size, use of iterative reconstruction technique) TECHNICAL DOCUMENTATION: JOB ID: [id number] [employer]- All Rights Reserved Reading location - IP/workstation name: [email or web address]
--- NOTE | 2019-03-25 12:21 | EKG REPORT ---
SEVERITY:- NORMAL ECG - SINUS RHYTHM : Confirmed by: Jarrett Mary MD 25-Mar-2019 12:20:06
--- NOTE | 2019-03-25 12:40 | ER Document Report ---
ED Cardiac - General Chief Complaint: Chest Pain Stated Complaint: CHEST PAIN Time Seen by Provider: 03/25/19 10:16 Primary Care Provider: REYNALDO GATES PA-C [Primary Care Provider] - Follow up as needed Mode of Arrival: Ambulatory Information source: Patient TRAVEL OUTSIDE OF THE [place] IN LAST 30 DAYS: No - HPI Notes: Patient arrives with complaints of chest pain. She states that the pain is a tightness that started yesterday. Has been intermittent. It is located in the left chest and goes over into the left arm and shoulder. Nothing makes it better or worse. She has not had previous similar problems. She had some mild shortness of breath. Some mild nausea. She occasionally wakes up with some night sweats. No previous history of coronary artery disease. She states she has never had any type of stress test or catheterization done. She denies any recent cough cold or congestion. She states she did have ovarian cancer 3 years ago but is not currently on any type of chemotherapy or radiation. She states the pain is moderate. - Related Data Allergies/Adverse Reactions: morphine Allergy (Verified 03/25/19 09:59) Past Medical History - General Information source: Patient - Social History Smoking Status: Current Every Day Smoker Frequency of alcohol use: None Drug Abuse: None Family History: Reviewed & Not Pertinent Patient has suicidal ideation: No Patient has homicidal ideation: No - Past Medical History Cardiac Medical History: Reports: Hx Hypercholesterolemia, Hx Hypertension Endocrine Medical History: Reports: Hx Diabetes Mellitus Type 2 Renal/ Medical History: Reports: Hx Kidney Stones. Denies: Hx Peritoneal Dialysis Malignancy Medical History: Reports: Hx Ovarian Cancer Psychiatric Medical History: Denies: Hx Depression Past Surgical History: Reports: Hx Abdominal Surgery - urostomy and colostomy, Hx Colostomy, Hx Gynecologic Surgery - ovarian, Hx Hysterectomy, Hx Kidney (Renal Surgery), Hx Orthopedic Surgery - right hip replacement, left shoulder, Other - Bladder removal with urostomy - Immunizations Immunizations up to date: Yes Hx Diphtheria, Pertussis, Tetanus Vaccination: Yes Review of Systems - Review of Systems Constitutional: Malaise, Weakness. denies: Chills, Fever Cardiovascular: Chest pain. denies: Palpitations Respiratory: Cough, Short of breath Genitourinary: denies: Burning, Dysuria -: Yes All other systems reviewed and negative Physical Exam - Vital signs Vitals: Temp Pulse Resp BP Pulse Ox 97.4 F 88 18 134/51 H 96 03/25/19 10:06 03/25/19 10:06 03/25/19 10:06 03/25/19 10:06 03/25/19 10:06 Interpretation: Normal - General General appearance: Appears well, Alert - HEENT Head: Normocephalic, Atraumatic Eyes: Normal Pupils: PERRL - Respiratory Respiratory status: No respiratory distress Chest status: Nontender Breath sounds: Rhonchi Chest palpation: Normal - Cardiovascular Rhythm: Regular Heart sounds: Normal auscultation Murmur: No - Abdominal Inspection: Normal Distension: No distension Bowel sounds: Normal Tenderness: Nontender Organomegaly: No organomegaly - Back Back: Normal, Nontender - Extremities General upper extremity: Normal inspection, Nontender, Normal color, Normal ROM, Normal temperature General lower extremity: Normal inspection, Nontender, Normal color, Normal ROM, Normal temperature, Normal weight bearing. No: Teetee's sign - Neurological Neuro grossly intact: Yes Cognition: Normal Orientation: AAOx4 Jorge Luis Coma Scale Eye Opening: Spontaneous Jorge Luis Coma Scale Verbal: Oriented Jorge Luis Coma Scale Motor: Obeys Commands Jorge Luis Coma Scale Total: 15 Speech: Normal Motor strength normal: LUE, RUE, LLE, RLE Sensory: Normal - Psychological Associated symptoms: Normal affect, Normal mood - Skin Skin Temperature: Warm Skin Moisture: Dry Skin Color: Normal Course - Re-evaluation Re-evalutation: 03/25/19 12:39 Patient reexamined just now. She states that the chest tightness is now gone. She did take aspirin today. There is no evidence of pulmonary embolism on CT scan. However patient's heart score is 5. I have contacted hospitalist for admission. - Vital Signs Vital signs: Temp Pulse Resp BP Pulse Ox 97.4 F 88 18 134/51 H 96 03/25/19 10:06 03/25/19 10:06 03/25/19 10:06 03/25/19 10:06 03/25/19 10:06 - Laboratory Result Diagrams: 03/25/19 11:05 03/25/19 11:05 Laboratory results interpreted by me: 03/25/19 03/25/19 11:05 11:05 Hgb 11.3 L Hct 34.1 L RDW 15.1 H Sodium 135.5 L Glucose 136 H AST 134 H - Diagnostic Test Radiology reviewed: Image reviewed, Reports reviewed - EKG Interpretation by Me EKG shows normal: Sinus rhythm Rate: Normal - 72 Rhythm: NSR Hidalgo/QRS: No: Right axis deviation, Left axis deviation, Bifasicular block Discharge - Discharge Clinical Impression: Chest pain Qualifiers: Chest pain type: unspecified Qualified Code(s): R07.9 - Chest pain, unspecified Condition: Stable Disposition: ADMITTED INPATIENT Admitting Provider: Vinay (Hospitalist) Unit Admitted: Telemetry Referrals: REYNALDO GATES PA-C [Primary Care Provider] - Follow up as needed
--- NOTE | 2019-03-25 14:26 | PDOC H&P ---
History of Present Illness Admission Date/PCP: 03/25/19 13:07 REYNALDO GATES PA-C Patient complains of: Left-sided chest tightness associated with shortness of breath History of Present Illness: SHELLIE HORTON is a 73 year old female who continues to smoke despite history of metastatic cancer affecting the ovaries, cervix, colon and vagina. She has a history of colostomy and urostomy. She has hypertension, hypothyroidism and diabetes mellitus type 2. She has hyperlipidemia, depression, anxiety and gets muscle spasms on occasion. She states that multiple times over the last several weeks she would develop left-sided chest tightness. It was associated with some shortness of breath/could not catch her breath. It would last for almost 1 week. She would occasionally be diaphoretic and experience nausea. Lately she has been having night sweats as well. Her EKG was normal and her first troponin was less than 0.012. The patient was referred to the hospital service for admission for chest pain rule out. Past Medical History Cardiac Medical History: Reports: Hyperlipidema, Hypertension Pulmonary Medical History: Denies: Asthma, Chronic Obstructive Pulmonary Disease (COPD), Pneumonia EENT Medical History: Reports: Nose - Sinus surgery Denies: Cataracts Neurological Medical History: Denies: Ischemic CVA, Multiple Sclerosis Endocrine Medical History: Reports: Diabetes Mellitus Type 2, Hypothyroidism Renal/ Medical History: Denies: Chronic Kidney Disease, Nephrolithiasis Malignancy Medical History: Reports: Ovarian Cancer GI Medical History: Reports: Gastroesophageal Reflux Disease Denies: Cirrhosis, Diverticulitis Musculoskeltal Medical History: Denies: Arthritis, Fibromyalgia, Gout Skin Medical History: Denies: Eczema, Psoriasis Psychiatric Medical History: Reports: Depression, Tobacco Dependency Denies: Alcohol Dependency, Substance Abuse Traumatic Medical History: Reports: None Hematology: 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 It was filled out during 1 of her previous admissions. Family History Family History: Malignancy, Other - Cerebral aneurysm Parental Family History Reviewed: Yes Children Family History Reviewed: Yes Sibling(s) Family History Reviewed.: Yes Medication/Allergy Home Medications: Anastrozole [Arimidex 1 mg Tablet] 1 mg PO DAILY 03/25/19 Diazepam [Valium] 5 mg PO 03/25/19 Fenofibrate 160 mg PO DAILY 03/25/19 Levothyroxine Sodium [Synthroid 0.075 mg Tablet] 0.075 mg PO DAILY 03/25/19 Lisinopril [Prinivil] 10 mg PO DAILY 03/25/19 Metformin HCl 500 mg PO BID 03/25/19 Omeprazole 20 mg PO BID 03/25/19 Sertraline HCl [Zoloft] 100 mg PO DAILY 03/25/19 Allergies/Adverse Reactions: morphine Allergy (Verified 03/25/19 09:59) Review of Systems Constitutional: PRESENT: as per HPI, night sweats. ABSENT: chills, fatigue, fever(s) Eyes: ABSENT: visual disturbances Ears: ABSENT: hearing changes Nose, Mouth, and Throat: ABSENT: headache(s), mouth pain, sore throat Cardiovascular: PRESENT: chest pain - Chest pressure. ABSENT: edema, orthropnea, palpitations Respiratory: PRESENT: dyspnea - On occasion. ABSENT: cough, hemoptysis, sputum Gastrointestinal: PRESENT: nausea, other - Colostomy and urostomy functioning well. ABSENT: abdominal pain, coffee ground emesis, constipation, diarrhea, v omiting Genitourinary: PRESENT: other - Urostomy Musculoskeletal: ABSENT: back pain, deformity, joint swelling, muscle weakness Integumentary: ABSENT: diaphoresis, erythema, lesions, pruritus, wounds Neurological: ABSENT: abnormal movements, abnormal speech, confusion, memory loss Psychiatric: ABSENT: anxiety, depression, hallucinations Endocrine: ABSENT: cold intolerance, heat intolerance, polydipsia, polyuria Hematologic/Lymphatic: ABSENT: as per HPI, easy bleeding, easy bruising, lymphadenopathy Allergic/Immunologic: ABSENT: seasonal rhinorrhea Physical Exam Vital Signs: Temp Pulse Resp BP Pulse Ox 97.4 F 88 18 134/51 H 96 03/25/19 10:06 03/25/19 10:06 03/25/19 10:06 03/25/19 10:06 03/25/19 10:06 Intake & Output 03/24/19 03/25/19 03/26/19 06:59 06:59 06:59 Weight 68.2 kg General appearance: PRESENT: no acute distress, cooperative, well-developed Head exam: PRESENT: atraumatic, normocephalic Eye exam: PRESENT: conjunctiva pale, EOMI. ABSENT: scleral icterus Ear exam: PRESENT: normal external ear exam. ABSENT: bleeding, drainage Mouth exam: PRESENT: moist, neck supple, tongue midline Respiratory exam: PRESENT: clear to auscultation yoli, symmetrical, unlabored, other - Port-A-Cath right upper chest. ABSENT: accessory muscle use, rales, rhonchi, tachypnea, wheezes Cardiovascular exam: PRESENT: RRR, +S1, +S2. ABSENT: diastolic murmur, systolic murmur Pulses: PRESENT: normal radial pulses, normal dorsalis pedis pul GI/Abdominal exam: PRESENT: normal bowel sounds, soft, other - Urostomy on the right and colostomy on the left. ABSENT: distended, guarding, tenderness Rectal exam: PRESENT: deferred, other - Colostomy Gentrourinary exam: PRESENT: other - Urostomy Musculoskeletal exam: PRESENT: ambulatory, full ROM, normal inspection Neurological exam: PRESENT: alert, awake, oriented to person, oriented to place, oriented to time, oriented to situation, CN II-XII grossly intact Psychiatric exam: PRESENT: flat affect. ABSENT: agitated, anxious Focused psych exam: ABSENT: delusional, restlessness Results Laboratory Results: 03/25/19 11:05 03/25/19 11:05 03/25/19 03/25/19 11:05 11:05 WBC 5.5 RBC 4.02 Hgb 11.3 L Hct 34.1 L MCV 85 MCH 28.2 MCHC 33.3 RDW 15.1 H Plt Count 328 Seg Neutrophils % 71.6 Sodium 135.5 L Potassium 4.2 Chloride 100 Carbon Dioxide 27 Anion Gap 9 BUN 11 Creatinine 0.71 Est GFR ( Amer) > 60 Glucose 136 H Calcium 10.0 Magnesium 1.6 Total Bilirubin 0.5 AST 134 H Alkaline Phosphatase 59 Total Protein 7.7 Albumin 4.2 03/25/19 11:05 Troponin I < 0.012 NT-Pro-B Natriuret Pep 158 Impressions: Chest X-Ray 03/25/19 10:21 IMPRESSION: NO ACUTE RADIOGRAPHIC FINDING IN THE CHEST. Chest/Abdomen CTA 03/25/19 10:59 IMPRESSION: There are no pulmonary emboli. There is no aortic aneurysm or dissection. Assessment and Plan - Diagnosis (1) Chest pain Qualifiers: Chest pain type: unspecified Qualified Code(s): R07.9 - Chest pain, unspecified Is this a current diagnosis for this admission?: Yes Plan: 03/25/2019-the patient does report left-sided chest tightness with associated shortness of breath. She has had several episodes of chest pressure with diaphoresis and nausea. She does have her diabetes and hypertension as risk factors. I have ordered serial troponin studies. If these are negative I will refer her to the online merchandising manager in divided office where her primary care provider is for additional work-up. She is on fenofibrate but may require statin therapy. I have started her on enteric-coated aspirin 81 mg daily. (2) Diabetes mellitus type 2 in nonobese Is this a current diagnosis for this admission?: Yes Plan: 03/25/2019-we will continue her metformin. We will check fingersticks at breakfast and supper. There is a sliding scale available. She is on a c arbohydrate controlled cardiac diet. (3) Hypertension Qualifiers: Hypertension type: essential hypertension Qualified Code(s): I10 - Essential (primary) hypertension Is this a current diagnosis for this admission?: Yes Plan: 03/25/2019-continue lisinopril. If there is cardiac disease then she may benefit from a beta-yarelis. (4) Depression Is this a current diagnosis for this admission?: Yes Plan: 03/25/2019-we will continue the patient's sertraline at her current dose of 100 mg daily. (5) Ovarian cancer in remission Is this a current diagnosis for this admission?: Yes Plan: 03/25/2019-the patient had metastatic ovarian cancer that required partial colectomy, hysterectomy with nephrectomy as well as cystectomy. She now has a colostomy on the left and a urostomy on the right. Her granddaughter helps her care for these devices at home. We will continue ostomy care during her hospitalization. She will stay on her anastrozole 1 mg daily. (6) Colostomy status Is this a current diagnosis for this admission?: Yes Plan: As above (7) Presence of urostomy Is this a current diagnosis for this admission?: Yes Plan: As above (8) Hypothyroidism Qualifiers: Hypothyroidism type: unspecified Qualified Code(s): E03.9 - Hypothyroidism, unspecified Is this a current diagnosis for this admission?: Yes Plan: 03/25/2019-based on the anand medication list stored in her phone the patient is on 175 mcg of levothyroxine daily. Pharmacy lists 75 mcg and if this is confirmed I will decrease the ordered dose. - Time Time Spent with patient: 35 or more minutes Medications reviewed and adjusted accordingly: Yes Anticipated discharge: Home Within: within 48 hours
[2019-03-25] MEDS ORDERED: MAG HYDROX/AL HYDROX/SIMETH SUSP 30 ML UDCUP PO PRN (14:27)
[2019-03-25] MEDS ORDERED: ACETAMINOPHEN 325 MG TABLET PO PRN (14:27)
[2019-03-25] MEDS ORDERED: ONDANSETRON 4 MG TAB.RAPDIS PO PRN (14:27)
[2019-03-25] MEDS ORDERED: TRAMADOL HCL 50 MG TABLET PO PRN (14:35)
[2019-03-25] MEDS ORDERED: BACLOFEN 10 MG TABLET PO PRN (14:36)
[2019-03-25 17:06] LABS: TROPONIN I < 0.012 ng/mL
[2019-03-25] MEDS ORDERED: IPRATROPIUM BROMIDE 0.06% NASAL SPRAY 15 ML NASL SCH (18:00)
[2019-03-25] MEDS: METFORMIN HCL 500 MG TABLET PO SCH (18:27)
[2019-03-25] MEDS ORDERED: DEXTROSE 50%-WATER 25 GM/50 ML DISP.SYRIN IV PRN ×2 (20:06)
[2019-03-25] MEDS ORDERED: DEXTROSE 40% GEL 15 GM TUBE PO PRN ×2 (20:06)
[2019-03-25] MEDS ORDERED: GLUCAGON,HUMAN RECOMB 1 MG INJ IM PRN (20:06)
--- NOTE | 2019-03-25 20:16 | ADVANCED CARE ---
- Diagnosis (1) Chest pain Diagnosis Current: Yes (2) Diabetes mellitus type 2 in nonobese Diagnosis Current: Yes (3) Hypertension Diagnosis Current: Yes (4) Depression Diagnosis Current: Yes (5) Ovarian cancer in remission Diagnosis Current: Yes (6) Colostomy status Diagnosis Current: Yes (7) Presence of urostomy Diagnosis Current: Yes (8) Hypothyroidism Diagnosis Current: Yes Attendance: The discussion was held at the bedside with the patient and her granddaughter. Resuscitation Status: Full Code Discussion: The patient has a healthcare proxy on file at this hospital. I looked in the scanned documents and was unable to locate it. The patient was clear about wanting full resuscitation and in the event of a catastrophic event with poor prognosis her granddaughter will withdraw support. Her granddaughter is the designated decision maker. Care Planning Goals: With the patient's metastatic malignancy and ostomy devices I wanted to be clear about her CODE STATUS. Document(s) Completed: None. Healthcare proxy is on file. Time Spent: 18 minutes
[2019-03-25] MEDS: HEPARIN SOD (PORCINE) 5,000 UNIT/ML 1 ML VIAL SUBCUT SCH (21:14)
[2019-03-25] MEDS: IPRATROPIUM BROMIDE 0.06% NASAL SPRAY 15 ML NASL SCH (21:14)
[2019-03-25] MEDS ORDERED: DIAZEPAM 5 MG TABLET PO SCH (22:00)
[2019-03-25] MEDS ORDERED: ASPIRIN 81 MG TABLET, ENT COATED PO SCH (22:00)
[2019-03-25 22:32] LABS: CREATINE KINASE MB 0.24 ng/mL (<4.55)
[2019-03-25 22:33] LABS: TROPONIN I < 0.012 ng/mL
[2019-03-26] MEDS: HEPARIN SOD (PORCINE) 5,000 UNIT/ML 1 ML VIAL SUBCUT SCH (05:34)
[2019-03-26] MEDS ORDERED: PANTOPRAZOLE SODIUM 20 MG TABLET.DR PO SCH (06:00)
[2019-03-26] MEDS ORDERED: LEVOTHYROXINE SODIUM 0.025 MG TABLET PO SCH (06:00)
[2019-03-26] MEDS ORDERED: LEVOTHYROXINE SODIUM 0.15 MG TABLET PO SCH (06:00)
[2019-03-26] MEDS ORDERED: INSULIN REG, HUMAN 100 UNIT/ML 3 ML VIAL (PYX) SUBCUT SCH (08:00)
[2019-03-26] MEDS: METFORMIN HCL 500 MG TABLET PO SCH (08:23)
[2019-03-26] MEDS: IPRATROPIUM BROMIDE 0.06% NASAL SPRAY 15 ML NASL SCH (09:39)
[2019-03-26] MEDS ORDERED: ANASTROZOLE 1 MG TABLET PO SCH (10:00)
[2019-03-26] MEDS ORDERED: SERTRALINE HCL 50 MG TABLET PO SCH (10:00)
[2019-03-26] MEDS ORDERED: FENOFIBRATE NANOCRYSTALLIZED 145 MG TABLET PO SCH (10:00)
[2019-03-26] MEDS ORDERED: (PENDING PHARMACY ID) (Fenofibrate [Fenofibrate] 160 MG) PO SCH (10:00)
[2019-03-26] MEDS ORDERED: LISINOPRIL 10 MG TABLET PO SCH (10:00)
--- NOTE | 2019-03-26 11:27 | PDOC DISCHARGE SUMMARY ---
General - Admit/Disc Date/PCP Admission Date/Primary Care Provider: 03/25/19 13:07 REYNALDO GATES PA-C Discharge Date: 03/26/19 - Discharge Diagnosis (1) Chest pain Is this a current diagnosis for this admission?: Yes Summary: The patient presented with chest pain. Serial troponins were negative. She does have multiple risk factors and I did recommend follow-up with cardiology. I also encouraged her to stop smoking and adhere to a diabetic diet. (2) Diabetes mellitus type 2 in nonobese Is this a current diagnosis for this admission?: Yes Summary: The patient does not follow a diabetic diet and is not on medication. Her glucose checks while in the hospital were elevated. I did encourage her to follow diabetic diet and follow-up with her primary care to consider increasing her metformin dose. (3) Hypertension Is this a current diagnosis for this admission?: Yes Summary: Her blood pressure was reasonably controlled. She will continue on lisinopril 10 mg daily. (4) Depression Is this a current diagnosis for this admission?: Yes Summary: Her depression is well controlled. She will continue on her sertraline. (5) Ovarian cancer in remission Is this a current diagnosis for this admission?: Yes Summary: She will continue her anastrozole and follow-up with oncology. (6) Colostomy status Is this a current diagnosis for this admission?: Yes Summary: With the help of her granddaughter she is maintaining her colostomy without difficulty. (7) Presence of urostomy Is this a current diagnosis for this admission?: Yes Summary: With the help of her granddaughter she is maintaining her urostomy without difficulty. (8) Hypothyroidism Is this a current diagnosis for this admission?: Yes Summary: She will continue on her current levothyroxine dose and follow-up with her primary care provider. - Additional Information Resuscitation Status: Full Code Discharge Diet: Cardiac, Diabetic Discharge Activity: Activity As Tolerated Home Medications: Anastrozole [Arimidex 1 mg Tablet] 1 mg PO DAILY 03/25/19 Diazepam [Valium] 5 mg PO HSP PRN 03/25/19 Fenofibrate 160 mg PO DAILY 03/25/19 Levothyroxine Sodium [Synthroid 0.075 mg Tablet] 0.075 mg PO DAILY 03/25/19 Lisinopril [Prinivil] 10 mg PO DAILY 03/25/19 Metformin HCl 500 mg PO BID 03/25/19 Omeprazole 20 mg PO BID 03/25/19 Sertraline HCl [Zoloft] 100 mg PO DAILY 03/25/19 Aspirin [Ecotrin 81 mg EC Tablet] 81 mg PO QHS tabec 03/26/19 History of Present Illness Patient complains of: Chest pain History of Present Illness: SHELLIE HORTON is a 73 year old female who continues to smoke despite history of metastatic cancer affecting the ovaries, cervix, colon and vagina. She has a history of colostomy and urostomy. She has hypertension, hypothyroidism and diabetes mellitus type 2. She has hyperlipidemia, depression, anxiety and gets muscle spasms on occasion. She states that multiple times over the last several weeks she would develop left-sided chest tightness. It was associated with some shortness of breath/could not catch her breath. It would last for almost 1 week. She would occasionally be diaphoretic and experience nausea. Lately she has been having night sweats as well. Her EKG was normal and her first troponin was less than 0.012. The patient was referred to the hospital service for admission for chest pain rule out. Hospital Course Hospital Course: The patient had an unremarkable hospital course. As expected she ruled out for acute coronary syndrome. With her risk factors of smoking and diabetes she should be more compliant with diet and exercise. Please also see details above. Physical Exam Vital Signs: Temp Pulse Resp BP Pulse Ox 98.3 F 76 16 130/55 H 99 03/26/19 07:39 03/26/19 07:39 03/26/19 07:39 03/26/19 07:39 03/26/19 07:39 Intake & Output 03/25/19 03/26/19 03/27/19 06:59 06:59 06:59 Intake Total 320 Output Total 1800 Balance -1480 Weight 70.6 kg General appearance: PRESENT: no acute distress, cooperative, well-developed Head exam: PRESENT: atraumatic, normocephalic Eye exam: PRESENT: conjunctiva pink, scleral icterus Ear exam: PRESENT: normal external ear exam. ABSENT: bleeding, drainage Mouth exam: PRESENT: moist, tongue midline Respiratory exam: PRESENT: clear to auscultation yoli, symmetrical, unlabored. ABSENT: rales, rhonchi, tachypnea, wheezes Cardiovascular exam: PRESENT: RRR, +S1, +S2 GI/Abdominal exam: PRESENT: normal bowel sounds, soft, other - Colostomy on left urostomy on right. ABSENT: distended, guarding, tenderness Extremities exam: ABSENT: joint swelling, pedal edema Musculoskeletal exam: PRESENT: ambulatory, normal inspection Neurological exam: PRESENT: alert, awake, oriented to person, oriented to place, oriented to time, oriented to situation, CN II-XII grossly intact Psychiatric exam: PRESENT: appropriate affect, normal mood. ABSENT: agitated, anxious Focused psych exam: ABSENT: delusional, restlessness Skin exam: PRESENT: dry, normal color, warm. ABSENT: petechiae, rash Results Laboratory Results: 03/25/19 11:05 03/25/19 11:05 03/25/19 11:05 Sodium 135.5 L Potassium 4.2 Chloride 100 Carbon Dioxide 27 Anion Gap 9 BUN 11 Creatinine 0.71 Est GFR ( Amer) > 60 Glucose 136 H Calcium 10.0 Magnesium 1.6 Total Bilirubin 0.5 AST 134 H Alkaline Phosphatase 59 Total Protein 7.7 Albumin 4.2 03/25/19 03/25/19 03/25/19 11:05 16:20 16:20 Creatine Kinase 46 CK-MB (CK-2) 0.50 Troponin I < 0.012 < 0.012 NT-Pro-B Natriuret Pep 158 03/25/19 03/25/19 21:30 21:30 Creatine Kinase 58 CK-MB (CK-2) 0.24 Troponin I < 0.012 NT-Pro-B Natriuret Pep Impressions: Chest X-Ray 03/25/19 10:21 IMPRESSION: NO ACUTE RADIOGRAPHIC FINDING IN THE CHEST. Chest/Abdomen CTA 03/25/19 10:59 IMPRESSION: There are no pulmonary emboli. There is no aortic aneurysm or dissection. Qualifiers - * PATIENT BEING DISCHARGED WITH ANY OF THE FOLLOWING DIAGNOSIS: No Acute Heart Failure - Is this a Heart Failure Patient?: No Plan Discharge Plan: Discharged home. Follow-up with primary care and consider cardiology follow-up for outpatient stress testing as she has never had a stress test. Time Spent: Greater than 30 Minutes
[2019-03-26 12:06] VITALS: BP 135/57
== END 2019-03-26 12:40 | disposition home or self-care (01) ==
LOC: ER 09:55 → INTOOBSV 13:07 → EH 13:07 → 4N 15:12
PROVIDERS: ADMIT Hospitalist; ATTEND Hospitalist
DX: R07.89 Other chest pain (principal); E11.65 Type 2 diabetes mellitus with hyperglycemia; I10 Essential (primary) hypertension; F32.9 Major depressive disorder, single episode, unspecified; E03.9 Hypothyroidism, unspecified; R11.0 Nausea; E78.5 Hyperlipidemia, unspecified; R61 Generalized hyperhidrosis; F41.9 Anxiety disorder, unspecified; R06.02 Shortness of breath; R05 Cough; R53.81 Other malaise; R53.1 Weakness; Z85.43 Personal history of malignant neoplasm of ovary; Z93.3 Colostomy status; Z93.6 Other artificial openings of urinary tract status; K21.9 Gastro-esophageal reflux disease without esophagitis; Z90.710 Acquired absence of both cervix and uterus; Z85.41 Personal history of malignant neoplasm of cervix uteri; Z85.038 Personal history of other malignant neoplasm of large intestine; Z85.89 Personal history of malignant neoplasm of other organs and systems; Z90.5 Acquired absence of kidney; Z90.6 Acquired absence of other parts of urinary tract; Z95.828 Presence of other vascular implants and grafts; Z79.899 Other long term (current) drug therapy
CPT/HCPCS: 93005; 99285; 36415; 82553; 82962; 82550; 83735; 85025; 80053; 84484; 83880; 71045; 71275; 93010; G0378 ×3; A9270 ×10; J1644 ×2; J1642; J3490

== ENCOUNTER → 2019-05-15 | Outpatient (CLI) | payer MEDICARE ==
--- NOTE | 2019-05-15 09:10 | RADIOLOGY REPORT (SQ) ---
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 TECHNIQUE: CT scan of the chest performed using helical scanning technique with dynamic intravenous contrast injection. Images reviewed with lung, soft tissue and bone windows. Reconstructed coronal a nd sagittal MPR images reviewed. All images stored on PACS. All CT scanners at this facility use dose modulation, iterative reconstruction, and/or weight based d osing when appropriate to reduce radiation dose to as low as reasonably achievable (ALARA). [facility]: Dose Right [facility]: CareDose [facility]: Dose Right [facility]: Teradose 4D [facility]: [employer] RADIATION DOSE: CT Rad equipment meets quality standard of care and radiation dose reduction techniq ues were employed. CTDIvol: 4.6 - 5.6 mGy. DLP: 794 mGy-cm. . LIMITATIONS: None. FINDINGS: AXILLAE: No adenopathy. CHEST WALL: No masses. No subcutaneous air. LUNGS: Stable under 3 mm nodule in the periphery of the right upper lobe. This is best demonstrated on series 6, image 48. PLEURA: No effusions. No calcifications. THYROID: No masses or significant asymmetry. HILAR AND MEDIASTINAL STRUCTURES: No identified masses or abnormal nodes. AORTA AND GREAT VESSELS: No aneurysm. No dissection. PULMONARY ARTERIES: No identified pulmonary emboli. Study not optimized for the pulmonary arteries. HEART: No pericardial effusion. HARDWARE AND LIFELINES: [id number]-Hpoi is in place. BONES: No significant finding. OTHER: No other significant finding. IMPRESSION: No evidence of metastatic disease in the chest. COMPARISON: None. RADIATION DOSE: CT Rad equipment meets quality standard of care and radiation dose reduction techniq ues were employed. CTDIvol: 4.6 - 5.6 mGy. DLP: 794 mGy-cm. mGy. TECHNIQUE: CT scan of the abdomen and pelvis performed with intravenous and oral contrast using mane agueda scanning technique with dynamic intravenous contrast injection. Images reviewed with lung, soft tissue and bone windows. Reconstructed coronal and sagittal MPR images reviewed. Delayed images for evaluation of the urinary system also acquired and evaluated. All images stored on PACS. All CT scanners at this facility use dose modulation, iterative reconstruction, and/or weight based d osing when appropriate to reduce radiation dose to as low as reasonably achievable (ALARA). [facility]: Dose Right [facility]: SureCare [facility]: Dose Right [facility]: Teradose 4D [facility]: [employer] [place] FINDINGS: LIVER: There is fatty infiltration of liver. No suspicious findings. SPLEEN: Normal size. No focal lesions. PANCREAS: No masses. No significant calcifications. No adjacent inflammation or peripancreatic flui d collections. Pancreatic duct not dilated. GALLBLADDER: No identified stones by CT criteria. No inflammatory changes to suggest cholecystitis. ADRENAL GLANDS: No significant masses or asymmetry. RIGHT KIDNEY AND URETER: Small cortical cysts and areas of cortical thinning. No significant calcif ications. No hydronephrosis or hydroureter. LEFT KIDNEY AND URETER: Small cortical cysts and areas of cortical thinning. No significant calcifi cations. No hydronephrosis or hydroureter. AORTA AND VESSELS: No aneurysm. No dissection. Renal arteries, SMA, celiac without stenosis. RETROPERITONEUM: No retroperitoneal adenopathy, hemorrhage or masses. LARGE AND SMALL BOWEL: Postsurgical changes. There ostomy sites present in both lower quadrants. APPENDIX: Not visualized. ABDOMINAL WALL: Postsurgical changes as described. PERITONEAL CAVITY: No free air. No free fluid. No peritoneal implants or masses. PELVIS: No mass free fluid. Prior cystectomy. BONES: No significant or acute findings. OTHER: No other significant finding. IMPRESSION: Postsurgical changes. No evidence of metastatic disease in the abdomen or pelvis. No a cute findings. TECHNICAL DOCUMENTATION: JOB ID: [id number] Quality ID # [id number]: Final reports with documentation of one or more dose reduction techniques (e.g., Au tomated exposure control, adjustment of the mA and/or kV according to patient size, use of iterative reconstruction technique) 2010 [employer]- All Rights Reserved Reading location - IP/workstation name: [email or web address]
--- NOTE | 2019-05-15 09:10 | RADIOLOGY REPORT (SQ) ---
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 TECHNIQUE: CT scan of the chest performed using helical scanning technique with dynamic intravenous contrast injection. Images reviewed with lung, soft tissue and bone windows. Reconstructed coronal a nd sagittal MPR images reviewed. All images stored on PACS. All CT scanners at this facility use dose modulation, iterative reconstruction, and/or weight based d osing when appropriate to reduce radiation dose to as low as reasonably achievable (ALARA). [facility]: Dose Right [facility]: CareDose [facility]: Dose Right [facility]: Teradose 4D [facility]: [employer] - [employer] | mentor | invest RADIATION DOSE: CT Rad equipment meets quality standard of care and radiation dose reduction techniq ues were employed. CTDIvol: 4.6 - 5.6 mGy. DLP: 794 mGy-cm. . LIMITATIONS: None. FINDINGS: AXILLAE: No adenopathy. CHEST WALL: No masses. No subcutaneous air. LUNGS: Stable under 3 mm nodule in the periphery of the right upper lobe. This is best demonstrated on series 6, image 48. PLEURA: No effusions. No calcifications. THYROID: No masses or significant asymmetry. HILAR AND MEDIASTINAL STRUCTURES: No identified masses or abnormal nodes. AORTA AND GREAT VESSELS: No aneurysm. No dissection. PULMONARY ARTERIES: No identified pulmonary emboli. Study not optimized for the pulmonary arteries. HEART: No pericardial effusion. HARDWARE AND LIFELINES: [id number]-C-[id number] is in place. BONES: No significant finding. OTHER: No other significant finding. IMPRESSION: No evidence of metastatic disease in the chest. COMPARISON: None. RADIATION DOSE: CT Rad equipment meets quality standard of care and radiation dose reduction techniq ues were employed. CTDIvol: 4.6 - 5.6 mGy. DLP: 794 mGy-cm. mGy. TECHNIQUE: CT scan of the abdomen and pelvis performed with intravenous and oral contrast using mane agueda scanning technique with dynamic intravenous contrast injection. Images reviewed with lung, soft tissue and bone windows. Reconstructed coronal and sagittal MPR images reviewed. Delayed images for evaluation of the urinary system also acquired and evaluated. All images stored on PACS. All CT scanners at this facility use dose modulation, iterative reconstruction, and/or weight based d osing when appropriate to reduce radiation dose to as low as reasonably achievable (ALARA). [facility]: Dose Right [facility]: SureCare [facility]: Dose Right [facility]: Teradose 4D [facility]: [employer] - [employer] | mentor | invest FINDINGS: LIVER: There is fatty infiltration of liver. No suspicious findings. SPLEEN: Normal size. No focal lesions. PANCREAS: No masses. No significant calcifications. No adjacent inflammation or peripancreatic flui d collections. Pancreatic duct not dilated. GALLBLADDER: No identified stones by CT criteria. No inflammatory changes to suggest cholecystitis. ADRENAL GLANDS: No significant masses or asymmetry. RIGHT KIDNEY AND URETER: Small cortical cysts and areas of cortical thinning. No significant calcif ications. No hydronephrosis or hydroureter. LEFT KIDNEY AND URETER: Small cortical cysts and areas of cortical thinning. No significant calcifi cations. No hydronephrosis or hydroureter. AORTA AND VESSELS: No aneurysm. No dissection. Renal arteries, SMA, celiac without stenosis. RETROPERITONEUM: No retroperitoneal adenopathy, hemorrhage or masses. LARGE AND SMALL BOWEL: Postsurgical changes. There ostomy sites present in both lower quadrants. APPENDIX: Not visualized. ABDOMINAL WALL: Postsurgical changes as described. PERITONEAL CAVITY: No free air. No free fluid. No peritoneal implants or masses. PELVIS: No mass free fluid. Prior cystectomy. BONES: No significant or acute findings. OTHER: No other significant finding. IMPRESSION: Postsurgical changes. No evidence of metastatic disease in the abdomen or pelvis. No a cute findings. TECHNICAL DOCUMENTATION: JOB ID: [id number] Quality ID # 436: Final reports with documentation of one or more dose reduction techniques (e.g., Au tomated exposure control, adjustment of the mA and/or kV according to patient size, use of iterative reconstruction technique) 2010 [employer]- All Rights Reserved Reading location - IP/workstation name: [email or web address]"
== END ==
LOC: RAD 07:48
PROVIDERS: ATTEND Internal Medicine
DX: C56.2 Malignant neoplasm of left ovary (principal)
CPT/HCPCS: 71260; 74177; 82565

== ENCOUNTER 2019-09-02 06:06 | Day surgery (SDC) | payer MEDICARE ==
[2019-09-01 11:09] LABS: ABSOLUTE EOSINOPHILS # (AUTO) 0.1 10^3/uL (0.0-0.6); ABSOLUTE LYMPHOCYTES (AUTO) 1.1 10^3/uL (0.5-4.7); ABSOLUTE MONOCYTES (AUTO) 0.4 10^3/uL (0.1-1.4); ABSOLUTE NEUT (AUTO) 3.3 10^3/uL (1.7-8.2); BASOPHILS % (AUTO) 0.6 % (0-2); EOSINOPHILS % (AUTO) 2.9 % (0-6); HEMATOCRIT 37.1 % (36.0-47.0); HEMOGLOBIN 12.6 g/dL (12.0-15.5); LYMPHOCYTES % (AUTO) 22.9 % (13-45); MEAN CORPUSCULAR VOLUME 85 fl (80-97); MONOCYTES % (AUTO) 7.2 % (3-13); PLATELET COUNT 193 10^3/uL (150-450); RED BLOOD COUNT 4.35 10^6/uL (3.72-5.28); RED CELL DISTRIBUTION WIDTH 14.8 % (11.5-14.0); SEGMENTED NEUTROPHILS % (AUTO) 66.4 % (42-78); TOTAL CELLS COUNTED % (AUTO) 100 %
[2019-09-01 11:13] LABS: APPEARANCE,URINE SLIGHTLY-CLOUDY; BILIRUBIN,URINE NEGATIVE (NEGATIVE); COLOR,URINE YELLOW; GLUCOSE, URINE NEGATIVE (NEGATIVE); KETONES,URINE NEGATIVE (NEGATIVE); LEUKOCYTE ESTERASE,URINE LARGE (NEGATIVE); NITRITE,URINE POSITIVE (NEGATIVE); PROTEIN,URINE NEGATIVE (NEGATIVE); URINE SPECIFIC GRAVITY 1.008; UROBILINOGEN,URINE NEGATIVE mg/dL (<2.0)
[2019-09-01 11:40] LABS: ANION GAP 11 (5-19); BLOOD UREA NITROGEN 16 mg/dL (7-20); CALCIUM 10.3 mg/dL (8.4-10.2); CARBON DIOXIDE 26 mmol/L (22-30); CHLORIDE 102 mmol/L (98-107); GLUCOSE 129 mg/dL (75-110); POTASSIUM 4.6 mmol/L (3.6-5.0)
--- NOTE | 2019-09-01 12:43 | RADIOLOGY REPORT (SQ) ---
EXAM DESCRIPTION: CHEST PA/LATERAL COMPLETED DATE/TIME: 09/01/2019 10:57 am REASON FOR STUDY: PRE-OP COMPARISON: 03/25/2019 EXAM PARAMETERS: NUMBER OF VIEWS: two views TECHNIQUE: Digital Frontal and Lateral radiographic views of the chest acquired. RADIATION DOSE: NA LIMITATIONS: none FINDINGS: LUNGS AND PLEURA: No opacities, masses or pneumothorax. No pleural effusion. MEDIASTINUM AND HILAR STRUCTURES: No masses or contour abnormalities. HEART AND VASCULAR STRUCTURES: Heart normal size. No evidence for failure. BONES: No acute findings. HARDWARE: Injection port on the right. OTHER: No other significant finding. IMPRESSION: NO SIGNIFICANT RADIOGRAPHIC FINDING IN THE CHEST. TECHNICAL DOCUMENTATION: JOB ID: [id number] 2011 [employer]- All Rights Reserved Reading location - IP/workstation name: [email or web address]
--- NOTE | 2019-09-01 17:06 | EKG REPORT ---
SEVERITY:- BORDERLINE ECG - SINUS RHYTHM BORDERLINE T ABNORMALITIES, ANT-LAT LEADS : Confirmed by: Bree Booker MD 01-Sep-2019 17:05:58
[~2019-09-02 06:06] MED LIST: CEFAZOLIN SODIUM 2 GM in DEXTROSE 5%-WATER 100 ML IV PRN; LACTATED RINGERS 1000 ML IV PRN; LIDOCAINE 0.5% INJ-PF (5 MG/ML) 50 ML SDV SUBCUT PRN
[2019-09-02 07:05] LABS: POTASSIUM 4.7 mmol/L (3.6-5.0)
[2019-09-02] MEDS ORDERED: FENTANYL CITRATE INJ/PF 100 MCG/2 ML AMPUL ONE (08:17)
[2019-09-02] MEDS ORDERED: PROPOFOL INJ 200 MG/20 ML VIAL IV ONE (08:18)
[2019-09-02] MEDS ORDERED: ONDANSETRON HCL INJ/PF 4 MG/2 ML SDV ONE (08:18)
[2019-09-02] MEDS ORDERED: MIDAZOLAM 2 MG/2 ML INJ ONE (08:18)
[2019-09-02] MEDS ORDERED: LIDOCAINE 1%/EPINEPHRINE INJ 20 ML VIAL ONE (08:28)
[2019-09-02] MEDS ORDERED: BUPIVACAINE HCL 0.5 % INJ/PF 30 ML SDV ONE (08:28)
[2019-09-02] MEDS ORDERED: PROMETHAZINE HCL INJ 25 MG/1 ML VIAL IV PRN (08:56)
[2019-09-02] MEDS ORDERED: FENTANYL CITRATE INJ/PF 100 MCG/2 ML AMPUL IV PRN ×3 (08:56)
[2019-09-02] MEDS ORDERED: DIPHENHYDRAMINE HCL 50 MG/ML VIAL IV PRN (08:56)
[2019-09-02] MEDS ORDERED: MEPERIDINE HCL/PF INJ 25 MG/1 ML DISP.SYRIN IV PRN (08:56)
[2019-09-02] MEDS: BUPIVACAINE HCL 0.5%-EPI 1:200000 INJ/PF 30 ML VIAL ONE ×2 (09:18→09:29)
--- NOTE | 2019-09-02 09:24 | Discharge Summary ---
Discharge Summary (SDC) - Discharge Final Diagnosis: Retained hardware right hip Date of Surgery: 09/02/19 Discharge Date: 09/02/19 Condition: Good Treatment or Instructions: Touchdown weightbearing restriction on the right lower extremity for 6 weeks Referrals: REYNALDO GATES PA-C [Primary Care Provider] - Discharge Diet: Regular Respiratory Treatments at Home: Deep Breathing/Coughing Discharge Activity: Balance Activity w/Rest, No tub bath, Other - Touchdown weightbearing restriction right lower extremity Home Care Assistance: None Needed Adaptive Devices on Discharge: Axillary Crutches Report the Following to Your Physician Immediately: Shortness of Breath, Fever over 101 Degrees, Drainage-Foul Smelling
--- NOTE | 2019-09-02 09:25 | Operative Report ---
Operative Report DATE OF SURGERY: 09/02/19 PREOPERATIVE DIAGNOSIS: Retained hardware right hip OPERATION: Hardware removal right hip SURGEON: JANNA MCCAIN ANESTHESIA: LMAC TISSUE REMOVED OR ALTERED: Screws x3 to CSS ESTIMATED BLOOD LOSS: Minimal PROCEDURE: The patient in a left lateral decubitus position on the operative table the right lower extremity hindquarter prepped and draped in a sterile fashion. Longitudinal incision was made in the region just below the vastus ridge laterally and sharp dissection was carried incision down to the underlying screws which are easily palpable. These are cannulated stainless steel screws with a 4.0 hex head. They are easily removed until the screws get to the lateral cortex and then there is not a reverse cutting thread on the screw so that it hangs up. An osteotome was used to fashion a small cortical opening around each of the screw shafts and the screws were then removed uneventfully. The wound is irrigated. Hemostasis obtained electrocautery. The wound is closed in layers with deep Vicryl followed by Dermabond. A sterile compressive dressing is applied and the patient is returned to PACU in satisfactory condition.
[2019-09-02] MEDS ORDERED: ACETAMINOPHEN 1,000 MG/100 ML RTUPB IV ONE ×2 (10:09→10:30)
[2019-09-02] MEDS ORDERED: KETOROLAC TROMETHAMINE INJ/PF 30 MG/1 ML SDV ONE (10:09)
[2019-09-02] MEDS ORDERED: TRAMADOL HCL 50 MG TABLET ONE (10:39)
[2019-09-02] MEDS ORDERED: KETOROLAC TROMETHAMINE INJ/PF 30 MG/1 ML SDV IV ONE (10:45)
[2019-09-02] MEDS ORDERED: TRAMADOL HCL 50 MG TABLET PO PRN (10:56)
[2019-09-02 11:57] VITALS: BP 128/56
== END 2019-09-02 11:40 | disposition home or self-care (01) ==
LOC: OROUT 06:06
PROVIDERS: ATTEND Orthopaedic Surgery
DX: T84.84XA Pain due to internal orthopedic prosthetic devices, implants and grafts, initial encounter (principal); Y83.8 Other surgical procedures as the cause of abnormal reaction of the patient, or of later complication, without mention of misadventure at the time of the procedure; M25.551 Pain in right hip; I10 Essential (primary) hypertension; E11.9 Type 2 diabetes mellitus without complications; F17.210 Nicotine dependence, cigarettes, uncomplicated; D59.1 Other autoimmune hemolytic anemias; Z79.899 Other long term (current) drug therapy; Z79.84 Long term (current) use of oral hypoglycemic drugs; Z79.51 Long term (current) use of inhaled steroids; Z85.51 Personal history of malignant neoplasm of bladder; Z85.43 Personal history of malignant neoplasm of ovary; Z85.038 Personal history of other malignant neoplasm of large intestine; Z85.89 Personal history of malignant neoplasm of other organs and systems
CPT/HCPCS: 93005; 36415 ×2; 82947; 84132; 85025; 80048; 81001; 71046; 93010; 01230; 20680; J2250; J3490; J0690; J3010; J1885; J2405; J7060; J2704; A9270; J0131; 1230

== ENCOUNTER → 2019-11-16 | Outpatient (CLI) | payer MEDICARE ==
--- NOTE | 2019-11-16 11:07 | RADIOLOGY REPORT (SQ) ---
EXAM DESCRIPTION: CT CHEST WITH; CT ABD/PELVIS WITH IV ONLY IMAGES COMPLETED DATE/TIME: 11/16/2019 8:47 am REASON FOR STUDY: OVARIAN CA (C56.2) C56.2 MALIGNANT NEOPLASM OF LEFT OVARY COMPARISON: CT chest abdomen pelvis 05/15/2019, 11/04/2018, 12/20/2017 CT chest 03/25/2019 CT abdomen pelvis 10/07/2018, 11/04/2018 CONTRAST TYPE AND DOSE: contrast/concentration: Isovue 350.00 mg/ml; Total Contrast Delivered: 83.0 ml; Total Saline Delivered: 69.0 ml RENAL FUNCTION: Creatinine 0.7 TECHNIQUE: CT scan of the chest performed using helical scanning technique with dynamic intravenous contrast injection. Images reviewed with lung, soft tissue and bone windows. Reconstructed coronal a nd sagittal MPR images reviewed. All images stored on PACS. CT scan of the abdomen and pelvis performed with intravenous and without oral contrastusing helical s jenniffer technique with dynamic intravenous contrast injection. Images reviewed with lung, soft tissu e and bone windows. Reconstructed coronal and sagittal MPR images reviewed. Delayed images for eval uation of the urinary system also acquired and evaluated. All images stored on PACS. All CT scanners at this facility use dose modulation, iterative reconstruction, and/or weight based d osing when appropriate to reduce radiation dose to as low as reasonably achievable (ALARA). [facility]: Dose Right [facility]: CareDose [facility]: Dose Right [facility]: Teradose 4D [facility]: [employer] RADIATION DOSE: CT Rad equipment meets quality standard of care and radiation dose reduction techniq ues were employed. CTDIvol: 5.1 - 7.1 mGy. DLP: 953 mGy-cm. . LIMITATIONS: None. FINDINGS: CHEST: LUNGS AND PLEURA: No opacities, nodules, masses. No pneumothorax. No effusions. HILAR AND MEDIASTINAL STRUCTURES: No identified masses or abnormal nodes. HEART AND VASCULAR STRUCTURES: No aneurysm or dissection. No central pulmonary emboli. No pericardi al effusion. HARDWARE: Right-sided permanent central line tip superior vena cava THYROID AND OTHER SOFT TISSUES: No masses. No adenopathy. BONES: No significant finding. OTHER: No other significant finding. ABDOMEN AND PELVIS: LIVER: Normal size. No masses. No dilated ducts. SPLEEN: Normal size. No focal lesions. PANCREAS: No masses. No significant calcifications. No adjacent inflammation or peripancreatic fluid collections. Pancreatic duct not dilated. GALLBLADDER: No identified stones by CT criteria. No inflammatory changes to suggest cholecystitis. ADRENAL GLANDS: No significant masses or asymmetry. RIGHT KIDNEY AND URETER: No solid masses. Multiple stable right renal cortical cysts. No significan t calcification. No hydronephrosis or hydroureter. LEFT KIDNEY AND URETER: No solid masses. Multiple stable left renal cortical cysts. No significant calcification. No hydronephrosis or hydroureter. AORTA AND VESSELS: No aneurysm. No dissection. Renal arteries, SMA, celiac without stenosis. The hea vily calcified right proximal common iliac artery, suspect flow significant stenosis RETROPERITONEUM: No retroperitoneal adenopathy, hemorrhage or masses. BOWEL AND PERITONEAL CAVITY: No CT evidence of bowel obstruction or free intraperitoneal air or fluid . There is a left lower quadrant colostomy with herniation of distal colon through the abdominal wal l defect on axial images 49-61. This is a new stomal hernia compared to CT 05/25/2019. No free intr aperitoneal air or fluid. Enterotomies for creation of the right lower quadrant urinary conduit. APPENDIX: Normal. ABDOMINAL WALL: Right lower quadrant and left lower quadrant ostomies. New left lower quadrant stoma l hernia containing nonobstructed distal colon PELVIS: Post cystectomy and hysterectomy. Post surgical resection of the anus, rectum. No pelvic ad enopathy or masses. BONES: No significant or acute findings. OTHER: No other significant finding. IMPRESSION: No CT evidence of recurrent disease over the chest abdomen and pelvis given history of o varian cancer Since 05/15/2019, patient has developed a small left lower quadrant stomal hernia containing nonobstru cted distal colon TECHNICAL DOCUMENTATION: JOB ID: [id number] Quality ID # 436: Final reports with documentation of one or more dose reduction techniques (e.g., Au tomated exposure control, adjustment of the mA and/or kV according to patient size, use of iterative reconstruction technique) 2010 [employer]- All Rights Reserved Reading location - IP/workstation name: [email or web address]
== END ==
LOC: RAD 07:57
PROVIDERS: ATTEND Internal Medicine
DX: C56.2 Malignant neoplasm of left ovary (principal)
CPT/HCPCS: 82565; 71260; 74177; J1642

== ENCOUNTER → 2020-03-09 | Outpatient (CLI) | payer MEDICARE ==
[2020-03-09 12:38] LABS: HEMOGLOBIN 11.7 g/dL (12.0-15.5); MEAN CORPUSCULAR HEMOGLOBIN 28.4 pg (27.0-33.4); MEAN CORPUSCULAR HGB CONC 33.5 g/dL (32.0-36.0); MEAN CORPUSCULAR VOLUME 85 fl (80-97); PLATELET COUNT 152 10^3/uL (150-450); RED BLOOD COUNT 4.12 10^6/uL (3.72-5.28); RED CELL DISTRIBUTION WIDTH 16.3 % (11.5-14.0); WHITE BLOOD COUNT 5.1 10^3/uL (4.0-10.5)
[2020-03-09 13:04] LABS: ALBUMIN 4.3 g/dL (3.5-5.0); ALKALINE PHOSPHATASE 59 U/L (38-126); ANION GAP 10 (5-19); ASPARTATE AMINO TRANSFERASE 92 U/L (14-36); BILIRUBIN,DIRECT 0.4 mg/dL (0.0-0.4); BILIRUBIN,TOTAL 0.6 mg/dL (0.2-1.3); BLOOD UREA NITROGEN 12 mg/dL (7-20); CALCIUM 10.1 mg/dL (8.4-10.2); CARBON DIOXIDE 24 mmol/L (22-30); CHLORIDE 102 mmol/L (98-107); GLUCOSE 229 mg/dL (75-110); POTASSIUM 4.5 mmol/L (3.6-5.0); TOTAL PROTEIN 7.6 g/dL (6.3-8.2)
== END ==
LOC: OD 12:02
PROVIDERS: ATTEND Internal Medicine Gastroenterology
DX: R10.13 Epigastric pain (principal)
CPT/HCPCS: 36415; 80053; 85027

== ENCOUNTER → 2020-03-18 | Outpatient (CLI) | payer MEDICARE ==
[2020-03-21 14:38] LABS: HEPATITIS B SURFACE AB QUAL Non Reactive (.); HEPATITS B SURFACE ANTIGEN Negative (Negative)
[2020-03-22 13:43] LABS: ACTIN (SMOOTH MUSCLE) ANTIBODY 9 Units (0-19); MITOCHONDRIAL (M2) ANTIBODY <20.0 Units (0.0-20.0)
== END ==
LOC: OD 13:48
PROVIDERS: ATTEND Internal Medicine Gastroenterology
DX: R94.5 Abnormal results of liver function studies (principal); K76.0 Fatty (change of) liver, not elsewhere classified; K58.2 Mixed irritable bowel syndrome; R10.13 Epigastric pain; R11.2 Nausea with vomiting, unspecified; R63.0 Anorexia; R63.4 Abnormal weight loss
CPT/HCPCS: 36415; 86235; 86256; 86706; 87340

== ENCOUNTER → 2020-04-08 | Outpatient (CLI) | payer MEDICARE | LOC: OD 08:30 | PROVIDERS: ATTEND Internal Medicine Gastroenterology | DX: K76.0 Fatty (change of) liver, not elsewhere classified (principal) | CPT/HCPCS: 36415 ==